=== PATIENT | male | born 1955 | race African-American/Black ===

== ENCOUNTER 2016-05-21 21:09 | Inpatient (IN) | payer MEDICARE, OTHER ==
--- NOTE | 2016-05-21 22:21 | ED ---
Extremity Problem HPI - General Chief complaint: Extremity Problem,Nontraumatic Stated complaint: swollen feet Time Seen by Provider: 05/21/16 21:49 Source: patient Mode of arrival: ambulatory Limitations: no limitations - History of Present Illness Initial comments: This patient is a 61-year-old man who presents to be evaluated for bilateral leg swelling and some mild discomfort. He states that he initially noted at about 3 weeks ago, and it was first present on the left side. The patient states that it has gradually progressed and now he has noted symptoms both sides. The patient has history of previous kidney failure due to hypertension, and is status post a transplant. He does not know his baseline creatinine and states that he "hasn't been sticking to the kidney diet" for a long time. Patient is denying any chest or abdominal symptoms. He has not noted fevers or chills. Denies any wounds to the lower extremities. MD Complaint: extremity pain, extremity swelling Onset/Timin -: week(s) Location: bilateral lower extremity History of Same: Yes Severity scale (1-10): 1 Quality: dull Consistency: constant Improves with: nothing Worsens with: nothing Associated Symptoms: denies other symptoms - Related Data Home Medications Medication Instructions Recorded Confirmed Ergocalciferol [Vitamin D2 50,000 unit PO JOHNSON 03/26/14 05/21/16 (DRISDOL)] Lisinopril [Prinivil] 10 mg PO DAILY 03/26/14 05/21/16 Magnesium Oxide [Mag-Ox] 400 mg PO BID 03/26/14 05/21/16 Mycophenolate Mofetil [Cellcept] 750 mg PO QAM 03/26/14 05/21/16 Tacrolimus [Prograf] 3 mg PO BID 03/26/14 05/21/16 glipiZIDE [Glucotrol XL] 10 mg PO DAILY 03/26/14 05/21/16 Mycophenolate Mofetil [Cellcept] 500 mg PO HS 11/27/15 05/21/16 Omeprazole 20 mg PO DAILY 11/27/15 05/21/16 Aspirin 325 mg PO DAILY PRN 05/21/16 05/21/16 Latanoprost [Xalatan 0.005%] 1 drop BOTH EYES HS 05/21/16 05/21/16 Allergies Allergy/AdvReac Type Severity Reaction Status Date / Time No Known Allergies Allergy Verified 05/22/16 03:38 Review of Systems ROS Statement: Those systems with pertinent positive or pertinent negative responses have been documented in the HPI. ROS Other: All systems not noted in ROS Statement are negative. Constitutional: Denies: fever, chills, weakness Respiratory: Denies: cough, dyspnea, hemoptysis Cardiovascular: Reports: edema. Denies: chest pain, palpitations, dyspnea on exertion, orthopnea, syncope Gastrointestinal: Denies: abdominal pain, vomiting, diarrhea, melena, hematochezia Genitourinary: Denies: dysuria, frequency, hematuria, testicular pain Musculoskeletal: Denies: back pain Skin: Denies: rash Neurological: Denies: headache, weakness, numbness Past Medical History Past Medical History: Chest Pain / Angina, COPD, Diabetes Mellitus, Hyperlipidemia, Hypertension Additional Past Medical History / Comment(s): Hepatitis C History of Any Multi-Drug Resistant Organisms: None Reported Additional Past Surgical History / Comment(s): Kidney transplant Past Psychological History: No Psychological Hx Reported Smoking Status: Current every day smoker Past Alcohol Use History: None Reported Past Drug Use History: None Reported General Exam Limitations: no limitations General appearance: alert, in no apparent distress Head exam: Present: atraumatic, normocephalic Eye exam: Present: normal appearance ENT exam: Present: normal oropharynx Respiratory exam: Present: normal lung sounds bilaterally. Absent: respiratory distress, wheezes, rales, rhonchi, stridor Cardiovascular Exam: Present: regular rate, normal rhythm, normal heart sounds. Absent: systolic murmur, diastolic murmur, rubs, gallop GI/Abdominal exam: Present: soft. Absent: distended, tenderness, guarding, rebound, mass, pulsatile mass, hernia Extremities exam: Present: normal inspection, normal capillary refill, other ( There is bilateral lower extremity edema, greater on the left and right. There is a trace of erythema to the medial aspect of the left foot however there is no warmth. No tenderness. Neurovascular exam intact to the bilateral lower extremities). Absent: calf tenderness Back exam: Present: normal inspection. Absent: CVA tenderness (R), CVA tenderness (L) Neurological exam: Present: alert. Absent: motor sensory deficit Skin exam: Present: warm, dry, intact, erythema (See above). Absent: rash Course Vital Signs 05/21/16 05/21/16 05/21/16 21:21 21:25 22:17 Temperature 98.0 F Pulse Rate 90 90 80 Pulse Rate [ Pulse Oximetery ] Pulse Rate [ Right Supine] Respiratory 18 18 20 Rate Blood Pressure 229/118 196/118 200/128 Blood Pressure [Right Arm Supine] O2 Sat by Pulse 99 99 97 Oximetry 05/21/16 05/21/16 05/22/16 22:33 23:18 00:00 Temperature 98.3 F Pulse Rate 78 75 69 Pulse Rate [ Pulse Oximetery ] Pulse Rate [ Right Supine] Respiratory 18 20 18 Rate Blood Pressure 193/119 196/123 186/115 Blood Pressure [Right Arm Supine] O2 Sat by Pulse 95 95 94 L Oximetry 05/22/16 05/22/16 05/22/16 00:41 01:09 02:01 Temperature 98.1 F Pulse Rate 72 69 73 Pulse Rate [ Pulse Oximetery ] Pulse Rate [ Right Supine] Respiratory 18 18 18 Rate Blood Pressure 176/107 182/109 171/108 Blood Pressure [Right Arm Supine] O2 Sat by Pulse 95 94 L 96 Oximetry 05/22/16 05/22/16 05/22/16 02:30 02:50 03:44 Temperature Pulse Rate 67 63 Pulse Rate [ Pulse Oximetery ] Pulse Rate [ Right Supine] Respiratory 18 18 18 Rate Blood Pressure 171/104 167/105 Blood Pressure [Right Arm Supine] O2 Sat by Pulse 98 97 Oximetry 05/22/16 05/22/16 04:23 07:00 Temperature 97.2 F L 97.4 F L Pulse Rate Pulse Rate [ 74 Pulse Oximetery ] Pulse Rate [ 65 Right Supine] Respiratory 18 20 Rate Blood Pressure Blood Pressure 146/92 172/114 [Right Arm Supine] O2 Sat by Pulse 96 95 Oximetry Medical Decision Making - Medical Decision Making This patient is 61-year-old man status post renal transplant, who presents with bilateral leg edema. He is found to have an elevation of his creatinine over baseline. Case discussed with admitting physician and will have nephrology consultation regarding the changes creatinine level - Lab Data Result diagrams: 05/21/16 22:15 05/21/16 22:15 Lab Results 05/21/16 05/21/16 05/21/16 Range/Units 22:15 22:15 22:15 WBC (3.8-10.6) k/uL RBC (4.30-5.90) m/uL Hgb (13.0-17.5) gm/dL Hct (39.0-53.0) % MCV (80.0-100.0) fL MCH (25.0-35.0) pg MCHC (31.0-37.0) g/dL RDW (11.5-15.5) % Plt Count (150-450) k/uL Neutrophils % % Lymphocytes % % Monocytes % % Eosinophils % % Basophils % % Neutrophils # (1.3-7.7) k/uL Lymphocytes # (1.0-4.8) k/uL Monocytes # (0-1.0) k/uL Eosinophils # (0-0.7) k/uL Basophils # (0-0.2) k/uL D-Dimer 0.45 (<0.60) mg/L FEU Sodium 145 (137-145) mmol/L Potassium 4.2 (3.5-5.1) mmol/L Chloride 113 H (98-107) mmol/L Carbon Dioxide 24 (22-30) mmol/L Anion Gap 8 mmol/L BUN 38 H (9-20) mg/dL Creatinine 1.90 H (0.66-1.25) mg/dL Est GFR (MDRD) Af Amer 44 (>60 ml/min/1.73 sqM) Est GFR (MDRD) Non-Af 36 (>60 ml/min/1.73 sqM) Glucose 99 (74-99) mg/dL POC Glucose (mg/dL) (75-99) mg/dL POC Glu Subsystems Engineer ID Calcium 9.4 (8.4-10.2) mg/dL Magnesium 1.6 (1.6-2.3) mg/dL Total Bilirubin 0.4 (0.2-1.3) mg/dL AST 44 (17-59) U/L ALT 41 (21-72) U/L Alkaline Phosphatase 76 (38-126) U/L Troponin I 0.038 H* (0.000-0.034) ng/mL Total Protein 6.6 (6.3-8.2) g/dL Albumin 3.1 L (3.5-5.0) g/dL 05/21/16 05/22/16 Range/Units 22:15 07:21 WBC 6.2 (3.8-10.6) k/uL RBC 5.45 (4.30-5.90) m/uL Hgb 16.4 (13.0-17.5) gm/dL Hct 50.1 (39.0-53.0) % MCV 92.1 (80.0-100.0) fL MCH 30.1 (25.0-35.0) pg MCHC 32.7 (31.0-37.0) g/dL RDW 13.3 (11.5-15.5) % Plt Count 148 L (150-450) k/uL Neutrophils % 44 % Lymphocytes % 42 % Monocytes % 6 % Eosinophils % 3 % Basophils % 1 % Neutrophils # 2.7 (1.3-7.7) k/uL Lymphocytes # 2.6 (1.0-4.8) k/uL Monocytes # 0.4 (0-1.0) k/uL Eosinophils # 0.2 (0-0.7) k/uL Basophils # 0.0 (0-0.2) k/uL D-Dimer (<0.60) mg/L FEU Sodium (137-145) mmol/L Potassium (3.5-5.1) mmol/L Chloride (98-107) mmol/L Carbon Dioxide (22-30) mmol/L Anion Gap mmol/L BUN (9-20) mg/dL Creatinine (0.66-1.25) mg/dL Est GFR (MDRD) Af Amer (>60 ml/min/1.73 sqM) Est GFR (MDRD) Non-Af (>60 ml/min/1.73 sqM) Glucose (74-99) mg/dL POC Glucose (mg/dL) 117 H (75-99) mg/dL POC Glu Subsystems Engineer ID Eduar, [place] Calcium (8.4-10.2) mg/dL Magnesium (1.6-2.3) mg/dL Total Bilirubin (0.2-1.3) mg/dL AST (17-59) U/L ALT (21-72) U/L Alkaline Phosphatase (38-126) U/L Troponin I (0.000-0.034) ng/mL Total Protein (6.3-8.2) g/dL Albumin (3.5-5.0) g/dL - EKG Data -: EKG Interpreted by [place] EKG shows normal: sinus rhythm, axis (Left axis deviation) Rate: normal (Rate 82 bpm) When compared to previous EKG there are: other (The lateral T inversions present on previous EKG) Interpretation: LVH, other (T inversion in lead 1, aVL, V6. ) Disposition Clinical Impression: Hypertension, Leg edema, Acute on chronic renal failure Disposition: ADMITTED IP TO THIS [facility] Condition: Poor Referrals: Trav Velasquez MD [Primary Care Provider] - 1-2 days
[2016-05-21] MEDS ORDERED: cloNIDine HCL 0.2 MG TAB PO STA (22:22)
[2016-05-21 22:50] LABS: Calcium 9.4 mg/dL (8.4-10.2); Magnesium 1.6 mg/dL (1.6-2.3); Potassium 4.2 mmol/L (3.5-5.1); Total Bilirubin 0.4 mg/dL (0.2-1.3); Total Protein 6.6 g/dL (6.3-8.2)
--- NOTE | 2016-05-21 22:57 | XR ---
EXAM: XR Chest, 1 View. CLINICAL HISTORY: Reason: cough TECHNIQUE: Frontal view of the chest. COMPARISON: No relevant prior studies available. FINDINGS: Rounded lucency in the left lower lung presumably reflects a bulla. Cannot exclude consolidation of adjacent retrocardiac left lower lobe. Cardiomediastinal contour is within normal limits. No overt pulmonary edema. No pneumothorax. No displaced fracture. IMPRESSION: Rounded lucency in the left lower lung presumably reflects a bulla. Cannot exclude consolidation of adjacent retrocardiac left lower lobe.
--- NOTE | 2016-05-21 23:28 | US ---
EXAM: US Duplex Bilateral Lower Extremity Veins. CLINICAL HISTORY: Reason: Pain TECHNIQUE: Real-time ultrasound scan of the veins of the bilateral lower extremities with color Doppler flow, spectral waveform analysis and compression. COMPARISON: No relevant prior studies available. FINDINGS: Deep veins: Unremarkable. No DVT in the common femoral, femoral or popliteal veins. Superficial veins: Unremarkable. No thrombus in the visualized greater saphenous veins. Soft tissues: No acute findings. No popliteal cyst. IMPRESSION: No deep venous thrombosis in the bilateral lower extremities.
[2016-05-22] MEDS ORDERED: NALOXONE 0.4 MG/ML 1 ML VIAL IV PRN (00:59)
[2016-05-22] MEDS: SODIUM CHLORIDE 0.9% 1,000 ML IV SCH (01:11)
[2016-05-22 01:26] LABS: Basophils % (A) 1 %; CH 30.3; Eosinophils # (A) 0.2 k/uL (0-0.7); Eosinophils % (A) 3 %; HCT 50.1 % (39.0-53.0); HDW 2.45; HGB 16.4 gm/dL (13.0-17.5); Luc # (Auto) 0.24; Luc % (Auto) 4; Lymphocytes # (A) 2.6 k/uL (1.0-4.8); Lymphocytes % (A) 42 %; MCH 30.1 pg (25.0-35.0); MCHC 32.7 g/dL (31.0-37.0); MCV 92.1 fL (80.0-100.0); Mean Platelet Volume 10.3; Monocytes # (A) 0.4 k/uL (0-1.0); Monocytes % (A) 6 %; Neutrophils # (A) 2.7 k/uL (1.3-7.7); Neutrophils % (A) 44 %; RBC 5.45 m/uL (4.30-5.90); RDW 13.3 % (11.5-15.5); WBC 6.2 k/uL (3.8-10.6); WBC (Perox) 6.13
[2016-05-22] MEDS ORDERED: LISINOPRIL 10 MG TAB PO STA (02:14)
[2016-05-22 03:33] VITALS: BMI 23.7
[2016-05-22 07:29] LABS: Glucose,Whole Blood 117 mg/dL (75-99)
[2016-05-22] MEDS: HEPARIN SODIUM,PORCINE 5,000 UNIT/ML 1 ML VIAL SQ SCH ×2 (08:03→16:01)
[2016-05-22] MEDS: glipiZIDE 5 MG TAB PO SCH ×2 (08:04→17:37)
[2016-05-22] MEDS: MYCOPHENOLATE MOFETIL 250 MG CAP PO SCH ×2 (08:04→20:49)
[2016-05-22] MEDS: TACROLIMUS 1 MG CAP PO SCH ×2 (08:04→20:49)
[2016-05-22] MEDS: MAGNESIUM OXIDE 400 MG TAB PO SCH ×2 (08:04→20:48)
[2016-05-22] MEDS: PANTOPRAZOLE 40 MG TABLET PO SCH (08:05)
[2016-05-22] MEDS: LISINOPRIL 10 MG TAB PO SCH (08:05)
--- NOTE | 2016-05-22 09:57 | P.NPCON ---
History of Present Illness - Reason for Consult acute renal failure - History of Present Illness reason for consultation: Kidney transplant management and acute kidney injury. History of present illness: Patient is a 61-year-old male seen in renal consultation for acute kidney injury and renal transplant management. Patient received a donor renal allograft in [address] [facility]. Etiology of his renal disease was nephrosclerosis. His baseline creatinine from October 2015 is near 1 but has been gradually increasing. It was 1.6 in November 2015 and then 1.4 in February 2016. It is elevated at 1.9 this admission. Patient presented to the hospital with lower extremity edema that he has noticed for the last 1 month. His blood pressure have also been running on the higher side.when he presented to the hospital his blood pressure was 229/118.he admits to being compliant with his medications.he is currently maintained on lisinopril 10 mg once daily and also received a dose of clonidine 0.2 mg.his most recent blood pressure is 172/114. He denies any chest pain or shortness of breath. No vomiting or diarrhea. Appetite has been good. Admits to good urine output. No hematuria or dysuria. He does have history of hepatitis C which has not been treated according to the patient. This was diagnosed prior to his kidney transplant in the . He also has diabetes mellitus which his tacrolimus induced. States he was diagnosed with diabetes about 10 years ago. Denies use of NSAIDs. No other complaints at this time. Vital signs are stable. General: The patient appeared well nourished and normally developed. HEENT: Head exam is unremarkable. Neck is without jugular venous distension. LUNGS: Lungs are clear to auscultation and percussion. Breath sounds decreased. HEART: Rate and Rhythm are regular. First and second heart sounds normal. No murmurs, rubs or gallops. ABDOMEN: Abdominal exam reveals normal bowel sounds. Non-tender and non- distended. No evidence of peritonitis. EXTREMITITES: 1+ edema. Past Medical History Past Medical History: Chest Pain / Angina, COPD, Diabetes Mellitus, Hyperlipidemia, Hypertension Additional Past Medical History / Comment(s): Hepatitis C History of Any Multi-Drug Resistant Organisms: None Reported Additional Past Surgical History / Comment(s): Kidney transplant Past Anesthesia/Blood Transfusion Reactions: No Reported Reaction Past Psychological History: No Psychological Hx Reported Smoking Status: Current every day smoker Past Alcohol Use History: None Reported Past Drug Use History: None Reported Additional Drug Use History / Comment(s): smokes less than a pack of cigs a day Medications and Allergies Home Medications Medication Instructions Recorded Confirmed Type Ergocalciferol [Vitamin D2 50,000 unit PO JOHNSON 03/26/14 05/21/16 History (DRISDOL)] Lisinopril [Prinivil] 10 mg PO DAILY 03/26/14 05/21/16 History Magnesium Oxide [Mag-Ox] 400 mg PO BID 03/26/14 05/21/16 History Mycophenolate Mofetil [Cellcept] 750 mg PO QAM 03/26/14 05/21/16 History Tacrolimus [Prograf] 3 mg PO BID 03/26/14 05/21/16 History glipiZIDE [Glucotrol XL] 10 mg PO DAILY 03/26/14 05/21/16 History Mycophenolate Mofetil [Cellcept] 500 mg PO HS 11/27/15 05/21/16 History Omeprazole 20 mg PO DAILY 11/27/15 05/21/16 History Aspirin 325 mg PO DAILY PRN 05/21/16 05/21/16 History Latanoprost [Xalatan 0.005%] 1 drop BOTH EYES HS 05/21/16 05/21/16 History Allergies Allergy/AdvReac Type Severity Reaction Status Date / Time No Known Allergies Allergy Verified 05/22/16 03:38 Physical Exam Vitals: Vital Signs Temp Pulse Pulse Pulse Resp BP BP 05/22/16 07:00 97.4 F L 74 20 172/114 05/22/16 04:23 97.2 F L 65 18 146/92 05/22/16 03:44 18 05/22/16 02:50 63 18 167/105 05/22/16 02:30 67 18 171/104 05/22/16 02:01 73 18 171/108 05/22/16 01:09 98.1 F 69 18 182/109 Pulse Ox 05/22/16 07:00 95 05/22/16 04:23 96 05/22/16 03:44 05/22/16 02:50 97 05/22/16 02:30 98 05/22/16 02:01 96 05/22/16 01:09 94 L Intake and Output 05/21/16 05/22/16 05/22/16 22:59 06:59 14:59 Intake Total 240 Balance 240 Intake: Oral 240 Other: Voiding Method Toilet # Voids 1 Weight 80 kg Results - Lab Results Most recent lab results Calcium 9.4 mg/dL (8.4-10.2) 05/21/16 22:15 Magnesium 1.6 mg/dL (1.6-2.3) 05/21/16 22:15 05/21/16 22:15 05/21/16 22:15 Assessment and Plan Plan: Assessment: #1. Nonoliguric acute kidney injury secondary to ischemic ATN secondary to hemodynamic instability. Rule out obstructive process and GN. Creatinine 1.9 today. Creatinine was 1 in May 2015 and up to 1.6 in November 2015 and more recently 1.4 in February 2016. #2. donor renal allograft from 2006 secondary to nephrosclerosis from [facility]. #3. Hypertension with chronic kidney disease. Uncontrolled. #4. History of hepatitis C. #5. Lower extremity edema related to uncontrolled hypertension as well as hypoalbuminemia. Rule out nephrotic syndrome. Plan: Check urinalysis. Check renal ultrasound. Quantify proteinuria. Check trough Prograf level. Add hydralazine 50 mg 3 times daily. Maintain Prograf and CellCept for immunosuppression medications. Repeat electrolytes in the morning. Pending above studies, may need a transplant biopsy for which he will need to be stress transferred to [facility]. Thank you for the consultation. I will continue to follow the patient with you during his hospital stay.
[2016-05-22] MEDS: hydrALAZINE HCL 50 MG TAB PO SCH ×3 (10:59→22:26)
[2016-05-22 11:38] LABS: Appearance,Urine Clear (Clear); Bilirubin,Urine Negative (Negative); Glucose,Urine (UA) Trace (Negative); Ketones,Urine Negative (Negative); Leukocyte Esterase,Urine Negative (Negative); Mucus,Urine Rare /hpf; Nitrite,Urine Negative (Negative); PH, Urine 6.5 (5.0-8.0); Particle Count 995; Protein,Urine 3+ (Negative); RBC,Urine <1 /hpf (0-5); Specific Gravity,Urine 1.013 (1.001-1.035); UA Billing (MACRO vs. MICRO) MICRO; Urobilinogen,Urine <2.0 mg/dL (<2.0); WBC,Urine 1 /hpf (0-5)
[2016-05-22 12:05] LABS: Glucose,Whole Blood 79 mg/dL (75-99)
--- NOTE | 2016-05-22 15:31 | US ---
EXAMINATION TYPE: US renal transplant w dop DATE OF EXAM: 05/22/2016 2:30 PM COMPARISON: Previous study dated 05/02/2015. CLINICAL HISTORY: tamara. EXAM PERFORMED: [facility]cale on [place] kidneys and Doppler duplex and Grayscale imaging of the transplan nati kidney. EXAM MEASUREMENTS: [place] Right Kidney: 6.1 x 2.7 x 2.3cm [place] Left Kidney: 6.0 x 3.1 x 2.9cm Transplant Kidney: 12.6 x 5.3 x 5.7 Location of transplanted kidney: RLQ ANATOMY: [place] Right Kidney: atrophied, hyperechoic [place] Left Kidney: atrophied, hyperechoic, small cyst measuring 0.5 x 0.5 x 0.6cm Transplant Kidney: cystic area inferior measuring 0.8 x 0.7 x 0.8cm . arterial and venous flow visua lized Bladder: appears wnl IMPRESSION: 1. STABLE CYSTIC LESION WITHIN THE TRANSPLANT KIDNEY. 2. ATROPHIC [place] KIDNEYS. 3. STABLE CYSTIC LESION IN THE [place] LEFT KIDNEY.
[2016-05-22 17:11] LABS: Glucose,Whole Blood 129 mg/dL (75-99)
[2016-05-22] MEDS: NICOTINE 7MG/24HR PATCH TRANSDERM SCH (17:37)
[2016-05-22] MEDS: ACETAMINOPHEN TAB 325 MG TAB PO PRN (17:40)
[2016-05-22] MEDS: LATANOPROST 0.005% OPHTH DROPS 2.5 ML BTL BOTH EYES SCH (20:48)
[2016-05-22 21:15] LABS: Glucose,Whole Blood 132 mg/dL (75-99)
--- NOTE | 2016-05-22 21:18 | HP ---
DATE OF ADMISSION: 05/22/2016 PRESENTING COMPLAINT: Lower extremity swelling. HISTORY OF PRESENTING COMPLAINT: This is a pleasant 61-year-old patient of Dr. Velasquez whose chronic stable medical conditions include COPD, diabetes, hyperlipidemia, hypertension, hepatitis C. Patient had a kidney transplant about 10 years ago at [facility]. Patient is followed by Dr. Morelos ( ) the last appointment was about 3 months ago. For about a month patient was noting increasing swelling of lower extremity. Denies any shortness of breath. No fever. No nausea or vomiting. No orthopnea. No PND. No chest pain. Because of swelling, he decided to come in today. Patient's creatinine from February of this year was 1.43 and creatinine has increased currently to 1.90. Patient denies any cardiac symptoms at all. REVIEW OF SYSTEMS: CONSTITUTIONAL: None. HEENT: None. RESPIRATORY: Occasionally short of breath. CARDIOVASCULAR: None. GASTROINTESTINAL: None. GENITOURINARY: None. MUSCULOSKELETAL: None. DERMATOLOGICAL: None. HEMATOLOGICAL: None. LYMPHATICS: None. PSYCHIATRY: None. NEUROLOGICAL: None. PAST HISTORY: 1. COPD. 2. Diabetes. 3. Hyperlipidemia. 4. Hypertension. 5. Hepatitis C. 6. Kidney transplant. PAST SURGICAL HISTORY: Kidney transplant. SOCIAL HISTORY: Smoking 3 or 4 cigarettes a day. Lives by himself. Denies use of recreational drugs or alcohol. FAMILY HISTORY: Reviewed; noncontributory to presentation. HOME MEDICATIONS: 1. Glucotrol XL 10 mg p.o. daily. 2. Prograf 3 mg p.o. b.i.d. 3. Omeprazole 20 mg p.o. daily. 4. CellCept 500 mg at night, 750 mg in the morning. 5. Magnesium oxide 400 mg p.o. b.i.d. 6. Prinivil 10 mg p.o. daily. 7. Xalatan 0.005% one drop to both eyes at bedtime. 8. Vitamin D2 50,000 units p.o. Wednesday. 9. Aspirin 325 p.o. daily p.r.n. ALLERGIES: NONE. PHYSICAL EXAMINATION: VITAL SIGNS ON PRESENTATION: Temperature 98, pulse 90, respiration 18, blood pressure 229/118. Pulse ox 99% on room air. Blood pressure now is 161/97. GENERAL APPEARANCE: Average build. Lying in bed. Somewhat tired-appearing. EYES: Pupils equal. Conjunctivae normal. HEENT: Oral conjunctivae normal. NECK: JVD not raised. Mass not palpable. RESPIRATORY: Effort normal. Lungs are clear. CARDIOVASCULAR: First and second sounds normal. Edema present. ABDOMEN: Soft, nontender. Liver and spleen not palpable. LYMPHATIC: No lymph node palpable in neck or axillae. PSYCHIATRY: Alert and oriented x3. Mood and affect normal. NEUROLOGICAL: Pupils equal. Cranial nerves grossly intact. Power and sensation grossly intact. INVESTIGATIONS: White count 6.2, hemoglobin 16.4. Potassium 4.2. BUN 38, creatinine 1.90. Patient's creatinine was 1.43 back in February of this year. Troponin 0.038. Albumin 3.1. UA shows protein 3+, trace glucose. Renal ultrasound shows stable cystic lesion within the transplant kidney, atrophic [place] kidney, stable cystic lesion in the [place] left kidney. Venous Doppler ultrasound: ( ) lower extremity. Chest x-ray: no fluid overload. ASSESSMENT: 1. Non-oliguric acute kidney injury secondary to ischemic acute tubular necrosis, possibly secondary to hemodynamic instability or hypertensive heart disease. Creatinine was 1.4 in February of this year. 2. Essential hypertension with chronic kidney disease, uncontrolled on presentation. 3. Hepatitis C. 4. Lower extremity edema; could be related to hypoalbuminemia. Nephrotic syndrome needs to be entertained. 5. Chronic obstructive pulmonary disease in a current smoker. 6. Chronic nicotine dependence. Patient is a cigarette smoker. 7. Hyperlipidemia. PLAN: Nephrology was consulted. Hydralazine 50 mg 3 times a day was added. Care was discussed with the patient. Home medications will be resumed. Will also give patient a nicotine patch.
[2016-05-23] MEDS: HEPARIN SODIUM,PORCINE 5,000 UNIT/ML 1 ML VIAL SQ SCH ×3 (01:38→17:46)
[2016-05-23] MEDS: SODIUM CHLORIDE 0.9% 1,000 ML IV SCH (01:51)
[2016-05-23 07:33] LABS: Glucose,Whole Blood 110 mg/dL (75-99)
[2016-05-23] MEDS: TACROLIMUS 1 MG CAP PO SCH ×2 (08:30→21:12)
[2016-05-23] MEDS: PANTOPRAZOLE 40 MG TABLET PO SCH (08:31)
[2016-05-23] MEDS: MYCOPHENOLATE MOFETIL 250 MG CAP PO SCH ×2 (08:31→21:12)
[2016-05-23] MEDS: ACETAMINOPHEN TAB 325 MG TAB PO PRN (08:31)
[2016-05-23] MEDS: MAGNESIUM OXIDE 400 MG TAB PO SCH ×2 (08:31→21:11)
[2016-05-23] MEDS: LISINOPRIL 10 MG TAB PO SCH (08:31)
[2016-05-23] MEDS: hydrALAZINE HCL 50 MG TAB PO SCH (08:31)
[2016-05-23] MEDS: glipiZIDE 5 MG TAB PO SCH ×2 (08:32→17:49)
[2016-05-23] MEDS: NICOTINE 7MG/24HR PATCH TRANSDERM SCH (08:32)
[2016-05-23 08:49] LABS: Calcium 9.5 mg/dL (8.4-10.2)
[2016-05-23 08:53] LABS: Potassium 4.2 mmol/L (3.5-5.1)
[2016-05-23] MEDS ORDERED: hydrALAZINE HCL 25 MG TAB PO ONE (10:00)
[2016-05-23] MEDS ORDERED: hydrALAZINE HCL 25 MG TAB PO SCH (10:00)
[2016-05-23] MEDS ORDERED: FUROSEMIDE 10 MG/ML 4 ML VIAL IV STA (10:31)
--- NOTE | 2016-05-23 10:31 | P.PN ---
Subjective Patient is seen in follow-up for acute kidney injury in renal transplant management. Patient has history of donor allograft from 2007 from [facility]. 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 He presented to the hospital with edema in his legs. His blood pressure was greater than 200 systolic on admission. He states he's been compliant with his medications. No vomiting or diarrhea. Appetite is good. Creatinine was 1.9 on admission yesterday and is down to 1.7 today. Blood pressures are somewhat better controlled. Vital signs are stable. General: The patient appeared well nourished and normally developed. HEENT: Head exam is unremarkable. Neck is without jugular venous distension. LUNGS: Lungs are clear to auscultation and percussion. Breath sounds decreased. HEART: Rate and Rhythm are regular. First and second heart sounds normal. No murmurs, rubs or gallops. ABDOMEN: Abdominal exam reveals normal bowel sounds. Non-tender and non- distended. No evidence of peritonitis. EXTREMITITES: 1+ edema. Objective - Vital Signs Vital signs: Vital Signs Temp 98.2 F 05/23/16 07:00 Pulse 57 L 05/23/16 07:00 Resp 22 05/23/16 07:00 BP 170/103 05/23/16 07:00 Pulse Ox 97 05/23/16 07:00 Intake & Output 05/22/16 05/23/16 05/23/16 18:59 06:59 18:59 Intake Total 900 Output Total 100 Balance 800 Intake: Intake, IV Titration 120 Amount Sodium Chloride 0.9% 1, 120 000 ml @ 20 mls/hr IV . Q24H [facility] Rx#:[id number] Oral 780 Output: Urine 100 Other: Voiding Method Toilet # Voids 2 2 - Labs CBC & Chem 7: 05/21/16 22:15 05/23/16 08:13 Labs: Abnormal Lab Results - Last 24 Hours (Table) 05/22/16 05/22/16 05/22/16 Range/Units 11:20 17:10 21:10 Chloride (98-107) mmol/L BUN (9-20) mg/dL Creatinine (0.66-1.25) mg/dL Glucose (74-99) mg/dL POC Glucose (mg/dL) 129 H 132 H (75-99) mg/dL Urine Protein 3+ H (Negative) Urine Glucose (UA) Trace H (Negative) Urine Mucus Rare H (None) /hpf 05/23/16 05/23/16 Range/Units 07:16 08:13 Chloride 114 H (98-107) mmol/L BUN 31 H (9-20) mg/dL Creatinine 1.70 H (0.66-1.25) mg/dL Glucose 121 H (74-99) mg/dL POC Glucose (mg/dL) 110 H (75-99) mg/dL Urine Protein (Negative) Urine Glucose (UA) (Negative) Urine Mucus (None) /hpf Microbiology - Last 24 Hours (Table) 05/22/16 11:20 Urine Culture - Preliminary Urine,Clean Catch Assessment and Plan Plan: Assessment: #1. Nonoliguric acute kidney injury secondary to ischemic ATN secondary to hemodynamic instability. No evidence of hydronephrosis. Creatinine 1.9 on admission and is down to 1.7 today.. Creatinine was 1 in May 2015 and up to 1.6 in November 2015 and more recently 1.4 in February 2016. #2. 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 #3. Hypertension with chronic kidney disease. Uncontrolled. #4. History of hepatitis C. #5. Lower extremity edema related to uncontrolled hypertension as well as hypoalbuminemia. Rule out nephrotic syndrome. #6. Proteinuria. Patient has had proteinuria for quite some time now which is related to his underlying hepatitis C. There may be a component of diabetic kidney disease as well. Depending on his renal function, he may need a transplant biopsy down the road. Plan: Quantify proteinuria. Check trough Prograf level. Increase hydralazine to 75 mg 3 times daily. Lasix 40 mg IV once today. Maintain Prograf and CellCept for immunosuppression medications. Repeat electrolytes in the morning.
[2016-05-23 11:34] LABS: Glucose,Whole Blood 123 mg/dL (75-99)
[2016-05-23] MEDS ORDERED: cloNIDine HCL 0.1 MG TAB PO PRN (15:36)
[2016-05-23] MEDS ORDERED: hydrALAZINE HCL 20 MG/ML 1 ML VIAL IVP PRN (15:36)
[2016-05-23] MEDS ORDERED: TEMAZEPAM 15 MG CAP PO PRN (15:37)
[2016-05-23] MEDS ORDERED: ALPRAZolam 0.25 MG TAB PO PRN (15:37)
[2016-05-23] MEDS ORDERED: ASPIRIN 325 MG TAB PO PRN (15:37)
[2016-05-23 17:17] LABS: Glucose,Whole Blood 94 mg/dL (75-99)
--- NOTE | 2016-05-23 17:32 | PN ---
DATE OF SERVICE: 05/23/2016 This 61-year-old gentleman who was admitted with non-oliguric acute kidney injury has been closely followed at this time. Nephrology is following the patient closely. No chest or palpitation. No fever. REVIEW OF SYSTEMS: CARDIOVASCULAR SYSTEM: No angina. RESPIRATORY; As mentioned earlier. GI: As mentioned earlier. : As mentioned earlier. NERVOUS SYSTEM: No numbness or weakness. Current medications are reviewed again. 1. Tylenol 650 q.6 p.r.n. 2. Vitamin D2, 50,000 units. 3. Glucotrol 5 mg b.i.d. 4. Hydralazine 75 t.i.d. 5. Zestril 10 mg p.o. daily. 6. Magnesium oxide. 7. CellCept. 8. Narcan. 9. Protonix. 10. Prograf. On exam, alert and oriented x3. Pulse is 63, blood pressure 183/115, respirations 22, temperature 97.2, pulse ox 91% on room air. HEENT: Conjunctivae normal. Oral mucosa moist. NECK: No jugular venous distention. No carotid bruit. No lymph node enlargement. CARDIOVASCULAR: S1 and S2, muffled. No S3, no S4. RESPIRATORY: Breath sounds diminished at the bases. A few scattered rhonchi, no crackles. ABDOMEN: Soft, nontender. No mass palpable. LEGS: No edema, no swelling. NERVOUS SYSTEM: Higher function as mentioned, moves all 4 limbs. No focal deficits LYMPHATICS: No lymphadenopathy of neck, axillae or groin. SKIN: No ulcers, rashes or bleeding. LABS: WBC 6.2. Sodium 143, potassium 4.2, chloride 114. Creatinine is 1.7, BUN is 31. ASSESSMENT: 1. Accelerated hypertension with hypertensive urgency. 2. Non-oliguric acute kidney injury secondary to acute tubular necrosis, possibly secondary to hemodynamic instability, hypertensive kidney disease. 3. Essential hypertension. 4. Hepatitic C history. 5. Lower extremity edema bilaterally. 6. Chronic obstructive pulmonary disease. 7. History of nicotine dependence. 8. Hyperlipidemia. 9. Mild thrombocytopenia. 10. Hyperchloremia. 11. Troponin indeterminate at 0.038. RECOMMENDATIONS AND DISCUSSION: This 61-year-old gentleman who presented with multiple complex medical issues, will monitor the patient closely. Continue the current medications. Continue symptomatic treatment. I recommend add Norvasc to the current regimen. Otherwise, continue with the rest of the medications, p.r.n. medications and closely follow with Nephrology. Monitor blood sugars closely. Guarded prognosis because of multiple complex medical issues. See orders for further details. Repeat labs will be ordered. Prognosis guarded. Discussed with the patient, understands and agrees.
[2016-05-23] MEDS: INSULIN LISPRO (humaLOG) 300 UNIT/3 ML VIAL SQ SCH ×2 (17:49→21:34)
[2016-05-23] MEDS: hydrALAZINE HCL 25 MG TAB PO SCH ×2 (17:49→21:11)
[2016-05-23] MEDS: amLODIPine 5 MG TAB PO SCH (17:49)
[2016-05-23 20:10] LABS: Hemoglobin A1C 7.8 % (4.2-6.1)
[2016-05-23] MEDS: LATANOPROST 0.005% OPHTH DROPS 2.5 ML BTL BOTH EYES SCH (21:11)
[2016-05-23 21:32] LABS: Glucose,Whole Blood 133 mg/dL (75-99)
[2016-05-24] MEDS: SODIUM CHLORIDE 0.9% 1,000 ML IV SCH (00:40)
[2016-05-24] MEDS: HEPARIN SODIUM,PORCINE 5,000 UNIT/ML 1 ML VIAL SQ SCH ×2 (00:40→08:40)
[2016-05-24 06:57] LABS: Glucose,Whole Blood 108 mg/dL (75-99)
[2016-05-24 07:37] VITALS: BP 174/99; PULSE 65; RESP 16; TEMP 97.7
[2016-05-24] MEDS: MAGNESIUM OXIDE 400 MG TAB PO SCH (08:39)
[2016-05-24] MEDS: TACROLIMUS 1 MG CAP PO SCH (08:39)
[2016-05-24] MEDS: PANTOPRAZOLE 40 MG TABLET PO SCH (08:39)
[2016-05-24] MEDS: hydrALAZINE HCL 25 MG TAB PO SCH (08:39)
[2016-05-24] MEDS: glipiZIDE 5 MG TAB PO SCH (08:39)
[2016-05-24] MEDS: amLODIPine 5 MG TAB PO SCH (08:39)
[2016-05-24] MEDS: LISINOPRIL 10 MG TAB PO SCH (08:39)
[2016-05-24] MEDS: MYCOPHENOLATE MOFETIL 250 MG CAP PO SCH (08:39)
[2016-05-24] MEDS: NICOTINE 7MG/24HR PATCH TRANSDERM SCH (08:40)
[2016-05-24] MEDS: INSULIN LISPRO (humaLOG) 300 UNIT/3 ML VIAL SQ SCH (08:40)
[2016-05-24] MEDS ORDERED: ERGOCALCIFEROL 50,000 UNIT CAP PO SCH (09:00)
[2016-05-24 09:29] LABS: Basophils % (A) 1 %; CH 30.4; CHCM 32.8; Eosinophils # (A) 0.2 k/uL (0-0.7); Eosinophils % (A) 3 %; HCT 46.2 % (39.0-53.0); HDW 2.43; HGB 15.7 gm/dL (13.0-17.5); Luc # (Auto) 0.12; Luc % (Auto) 3; Lymphocytes # (A) 1.6 k/uL (1.0-4.8); Lymphocytes % (A) 35 %; MCH 31.5 pg (25.0-35.0); MCHC 33.9 g/dL (31.0-37.0); MCV 92.9 fL (80.0-100.0); Mean Platelet Volume 9.6; Monocytes # (A) 0.3 k/uL (0-1.0); Monocytes % (A) 6 %; Neutrophils # (A) 2.4 k/uL (1.3-7.7); Neutrophils % (A) 53 %; RBC 4.97 m/uL (4.30-5.90); RDW 13.4 % (11.5-15.5); WBC 4.5 k/uL (3.8-10.6); WBC (Perox) 4.62
[2016-05-24 09:37] LABS: Calcium 9.3 mg/dL (8.4-10.2); Potassium 4.4 mmol/L (3.5-5.1)
--- NOTE | 2016-05-24 10:52 | P.PN ---
Subjective Patient is seen in follow-up for acute kidney injury in renal transplant management. Patient has history of donor allograft from 2007 from [facility]. 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 He presented to the hospital with edema in his legs. His blood pressure was greater than 200 systolic on admission. He states he's been compliant with his medications. No vomiting or diarrhea. Appetite is good. Creatinine was 1.9 on admission yesterday and was down to 1.7 today. Is 1.83 today. Blood pressures are better controlled. Vital signs are stable. General: The patient appeared well nourished and normally developed. HEENT: Head exam is unremarkable. Neck is without jugular venous distension. LUNGS: Lungs are clear to auscultation and percussion. Breath sounds decreased. HEART: Rate and Rhythm are regular. First and second heart sounds normal. No murmurs, rubs or gallops. ABDOMEN: Abdominal exam reveals normal bowel sounds. Non-tender and non- distended. No evidence of peritonitis. EXTREMITITES: Trace edema. Objective - Vital Signs Vital signs: Vital Signs Temp 97.7 F 05/24/16 07:00 Pulse 65 05/24/16 07:00 Resp 16 05/24/16 07:00 BP 174/99 05/24/16 07:00 Pulse Ox 96 05/24/16 07:00 Intake & Output 05/23/16 05/24/16 05/24/16 18:59 06:59 18:59 Intake Total 160 Balance 160 Intake: Intake, IV Titration 160 Amount Sodium Chloride 0.9% 1, 160 000 ml @ 20 mls/hr IV . Q24H [facility] Rx#:[id number] Other: # Voids 2 1 - Labs CBC & Chem 7: 05/24/16 08:53 05/24/16 08:53 Labs: Abnormal Lab Results - Last 24 Hours (Table) 05/23/16 05/23/16 05/23/16 Range/Units 08:13 11:32 21:00 Plt Count (150-450) k/uL Chloride (98-107) mmol/L BUN (9-20) mg/dL Creatinine (0.66-1.25) mg/dL Glucose (74-99) mg/dL POC Glucose (mg/dL) 123 H 133 H (75-99) mg/dL Hemoglobin A1c 7.8 H (4.2-6.1) % 05/24/16 05/24/16 05/24/16 Range/Units 06:56 08:53 08:53 Plt Count 135 L (150-450) k/uL Chloride 111 H (98-107) mmol/L BUN 36 H (9-20) mg/dL Creatinine 1.83 H (0.66-1.25) mg/dL Glucose 153 H (74-99) mg/dL POC Glucose (mg/dL) 108 H (75-99) mg/dL Hemoglobin A1c (4.2-6.1) % Microbiology - Last 24 Hours (Table) 05/22/16 11:20 Urine Culture - Final Urine,Clean Catch Assessment and Plan Plan: Assessment: #1. Nonoliguric acute kidney injury secondary to ischemic ATN secondary to hemodynamic instability. No evidence of hydronephrosis. Creatinine 1.9 on admission and was down to 1.7 as of yesterday and is 1.8 today. Creatinine was 1 in May 2015 and up to 1.6 in November 2015 and more recently 1.4 in February 2016. Need to rule out rejection. #2. 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 #3. Hypertension with chronic kidney disease. #4. History of hepatitis C. #5. Lower extremity edema related to uncontrolled hypertension as well as hypoalbuminemia. Rule out nephrotic syndrome. #6. Proteinuria. Patient has had proteinuria for quite some time now which is related to his underlying hepatitis C. There may be a component of diabetic kidney disease as well. Plan: Quantify proteinuria. Await trough Prograf level. Continue current antihypertensives. Maintain Prograf and CellCept for immunosuppression medications. Transfer patient to [facility] for biopsy of the transplant kidney to rule out rejection. This was discussed with the patient and he is in agreement. Case was also discussed with the nephrology team at [facility].
[2016-05-24 11:33] LABS: Glucose,Whole Blood 163 mg/dL (75-99)
--- NOTE | 2016-05-24 13:23 | DS ---
DATE OF ADMISSION: 05/22/2016 DATE OF DISCHARGE: DATE OF SERVICE: 05/24/2016 FINAL DIAGNOSES: 1. Hypertension with hypertensive urgency. 2. Nonoliguric acute kidney injury secondary to acute tubular necrosis, possibly secondary to hemodynamic instability, hypertension, kidney disease, rule out transplant rejection. 3. History of disease donor renal allograft in 2006 secondary to hepatitis C and induced glomerular nephritis from [facility]. 4. Essential hypertension. 5. Hepatitis C and treatment history. 6. Lower extremity edema, bilateral. 7. Chronic obstructive pulmonary disease. 8. History of nicotine dependence. 9. Hyperlipidemia. 10. Mild thrombocytopenia. 11. Hyperchloremia. 12. Troponin indeterminate at 0.038. 13. FULL CODE. 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 TOTAL TIME TAKEN: 35 minutes. HISTORY OF PRESENT ILLNESS: This 61-year-old gentleman with a past medical history of multiple medical problems being followed by Dr. Velasquez in the outpatient setting, admitted with accelerated hypertension, bilateral leg edema and nonoliguric acute kidney failure. The creatinine was closely monitored. It was found to be 1.[address] Sosa. Discussed the case with [facility] and the patient will be transferred for evaluation for possibly transplant rejection and possible biopsy, otherwise, On exam, vitals are stable. CARDIOVASCULAR SYSTEM: S1, S2. ABDOMEN: Soft. NERVOUS SYSTEM: No focal deficits. The current medications are as mentioned: 1. Tylenol 650 q.6 p.r.n. 2. Xanax 0.5 t.i.d. 3. Norvasc 5 mg p.o. daily. 4. Aspirin 325 mg daily. 5. Catapres 0.1 mg p.o. q.4 p.r.n. 6. Vitamin D2 fifty thousand p.o. Wednesday. 7. Glucotrol 5 mg a.c. b.i.d. 8. Heparin 5000 subQ q.8. 9. Apresoline 10 mg IV q.4 p.r.n. 10. Apresoline 75 mg p.o. t.i.d. 11. Humalog scale. 12. Xalatan eye drops. 13. Zestril 10 mg daily. 14. Magnesium oxide 400 mg p.o. b.i.d. 15. CellCept 750 mg p.o. q.a.m. 16. CellCept 500 mg p.o. q.h.s. 17. Narcan 0.2 q.2 p.r.n. 18. Habitrol 7 daily. 19. Protonix 40 mg daily. 20. Prograf 3 mg p.o. b.i.d. 21. Restoril 50 mg p.o. q.h.s.
== END 2016-05-24 14:11 | disposition short-term general hospital (02) | DRG 683 ==
LOC: EC 21:09 → 4MS4W 05-22 01:00
PROVIDERS: ADMIT Hospitalist; ATTEND Hospitalist
DX: N17.0 Acute kidney failure with tubular necrosis (principal); E11.22 Type 2 diabetes mellitus with diabetic chronic kidney disease; E87.8 Other disorders of electrolyte and fluid balance, not elsewhere classified; D69.6 Thrombocytopenia, unspecified; I16.0 Hypertensive urgency; E88.09 Other disorders of plasma-protein metabolism, not elsewhere classified; B19.20 Unspecified viral hepatitis C without hepatic coma; E78.5 Hyperlipidemia, unspecified; F17.210 Nicotine dependence, cigarettes, uncomplicated; I12.9 Hypertensive chronic kidney disease with stage 1 through stage 4 chronic kidney disease, or unspecified chronic kidney disease; J44.9 Chronic obstructive pulmonary disease, unspecified; N18.9 Chronic kidney disease, unspecified; R60.0 Localized edema; Z94.0 Kidney transplant status; Z79.82 Long term (current) use of aspirin; Z79.899 Other long term (current) drug therapy
CPT/HCPCS: 36415; 71010; 76776; 80048; 80053; 80197; 81001; 82570; 83036; 83735; 84156; 84484; 85025; 85379; 87086; 93005; 93970; 99285

== ENCOUNTER 2016-06-23 14:21 | Inpatient (IN) | payer MEDICARE, OTHER ==
--- NOTE | 2016-06-23 14:50 | ED ---
General Adult HPI - General Chief complaint: Dizziness Stated complaint: Dizzy Time Seen by Provider: 06/23/16 14:21 Source: patient, RN notes reviewed Mode of arrival: EMS Limitations: no limitations - History of Present Illness Initial comments: This is a 61-year-old male who presents emergency Department complaining of elevated sugar. Patient states he initially hepatitis C and high blood pressure he came in a while ago and they found that he had completely kidney failure she had a kidney transplant since then he had some issues with his kidneys such that he was placed on some steroids and since this been on the steroids his sugars been very high. Patient's noted that he has had a very dry mouth and he has been urinating quite a bit lately. Patient states he's been tapering steroids soft but the symptoms remain. Patient states she went primary medical care office today because it was so high that he wanted him to come the emergency department. Patient denies any recent fever chills or cough. Patient denies any chest pain palpitations difficulty breathing shortest breath per patient denies any abdominal pain patient denies nausea vomiting diarrhea per patient denies headache patient denies numbness weakness. Patient states he is mildly lightheaded and that seems to come and go. - Related Data Home Medications Medication Instructions Recorded Confirmed Lisinopril [Prinivil] 10 mg PO DAILY 03/26/14 06/23/16 Mycophenolate Mofetil [Cellcept] 750 mg PO BID 03/26/14 06/23/16 Tacrolimus [Prograf] 3 mg PO QAM 03/26/14 06/23/16 glipiZIDE [Glucotrol XL] 10 mg PO DAILY 03/26/14 06/23/16 Omeprazole 20 mg PO DAILY 11/27/15 06/23/16 Amoxicillin 500 mg PO TID 06/23/16 06/23/16 Aspirin [Adult Low Dose Aspirin EC] 81 mg PO DAILY 06/23/16 06/23/16 Atorvastatin [Lipitor] 20 mg PO 06/23/16 06/23/16 Calcitriol [Rocaltrol] 0.25 mcg PO DAILY 06/23/16 06/23/16 Clopidogrel [Plavix] 75 mg PO DAILY 06/23/16 06/23/16 Latanoprost Ophth [Xalatan 0.005%] 1 drops BOTH EYES 06/23/16 06/23/16 Multivitamins, Thera [Multivitamin 1 tab PO DAILY 06/23/16 06/23/16 (formulary)] Sodium Bicarbonate Tab 650 mg PO BID 06/23/16 06/23/16 Tacrolimus [Prograf] 2 mg PO HS 06/23/16 06/23/16 amLODIPine [Norvasc] 10 mg PO DAILY 06/23/16 06/23/16 metFORMIN HCL [Glucophage] 500 mg PO BID 06/23/16 06/23/16 predniSONE See Taper PO DAILY 06/23/16 06/23/16 Allergies Allergy/AdvReac Type Severity Reaction Status Date / Time No Known Allergies Allergy Verified 06/23/16 14:50 Review of Systems ROS Statement: Those systems with pertinent positive or pertinent negative responses have been documented in the HPI. ROS Other: All systems not noted in ROS Statement are negative. Past Medical History Past Medical History: Chest Pain / Angina, COPD, Diabetes Mellitus, Hyperlipidemia, Hypertension Additional Past Medical History / Comment(s): Hepatitis C History of Any Multi-Drug Resistant Organisms: None Reported Additional Past Surgical History / Comment(s): Kidney transplant Past Anesthesia/Blood Transfusion Reactions: No Reported Reaction Past Psychological History: No Psychological Hx Reported Smoking Status: Current every day smoker Past Alcohol Use History: None Reported Past Drug Use History: None Reported Additional Drug Use History / Comment(s): smokes less than a pack of cigs a day General Exam - General Exam Comments Initial Comments: GENERAL: Patient is well-developed and well-nourished. Patient is nontoxic and well- hydrated and is in mild distress. ENT: Neck is soft and supple. No significant lymphadenopathy is noted. Oropharynx is clear. Dry mucous membranes. Neck has full range of motion without eliciting any pain. EYES: The sclera were anicteric and conjunctiva were pink and moist. Extraocular movements were intact and pupils were equal round and reactive to light. Eyelids were unremarkable. PULMONARY: Unlabored respirations. Good breath sounds bilaterally. No audible rales rhonchi or wheezing was noted. CARDIOVASCULAR: There is a regular rate and rhythm without any murmurs gallops or rubs. ABDOMEN: Soft and nontender with normal bowel sounds. No palpable organomegaly was noted. There is no palpable pulsatile mass. SKIN: Skin is clear with no lesions or rashes and otherwise unremarkable. NEUROLOGIC: Patient is alert and oriented x3. Cranial nerves II through XII are grossly intact. Motor and sensory are also intact. Normal speech, volume and content. Symmetrical smile. MUSCULOSKELETAL: Normal extremities with adequate strength and full range of motion. No lower extremity swelling or edema. No calf tenderness. LYMPHATICS: No significant lymphadenopathy is noted PSYCHIATRIC: Normal psychiatric evaluation. Normal interpersonal interactions appears functionally intact in deals appropriately with others. No signs of depression. No signs of anxiety. Limitations: no limitations Course Vital Signs 06/23/16 06/23/16 14:29 15:22 Temperature 97.7 F Pulse Rate 83 83 Respiratory 16 18 Rate Blood Pressure 158/100 143/89 O2 Sat by Pulse 97 98 Oximetry Medical Decision Making - Medical Decision Making EKG shows sinus rhythm with an occasional PVC at a 92 bpm AK interval is 126 QRS is 90 QT interval 372 QTC is 460 per patient's EKG shows no ST segment elevation or depression patient however does have some inverted T waves in V5 and V6. I started the patient on an insulin drip. I called because he agreed to admit the patient I admitted the patient I wrote admitting orders. - Lab Data Result diagrams: 06/23/16 14:32 06/23/16 14:32 Lab Results 06/23/16 06/23/16 06/23/16 Range/Units 14:32 14:32 14:32 WBC 8.3 (3.8-10.6) k/uL RBC 5.44 (4.30-5.90) m/uL Hgb 16.8 (13.0-17.5) gm/dL Hct 50.3 (39.0-53.0) % MCV 92.5 (80.0-100.0) fL MCH 30.9 (25.0-35.0) pg MCHC 33.4 (31.0-37.0) g/dL RDW 13.2 (11.5-15.5) % Plt Count 133 L (150-450) k/uL Neutrophils % 85 % Lymphocytes % 12 % Monocytes % 2 % Eosinophils % 1 % Basophils % 0 % Neutrophils # 7.0 (1.3-7.7) k/uL Lymphocytes # 1.0 (1.0-4.8) k/uL Monocytes # 0.2 (0-1.0) k/uL Eosinophils # 0.1 (0-0.7) k/uL Basophils # 0.0 (0-0.2) k/uL PT (9.0-12.0) sec INR (<1.1) APTT (22.0-30.0) sec Sodium 133 L (137-145) mmol/L Potassium 4.6 (3.5-5.1) mmol/L Chloride 103 (98-107) mmol/L Carbon Dioxide 25 (22-30) mmol/L Anion Gap 5 mmol/L BUN 39 H (9-20) mg/dL Creatinine 1.43 H (0.66-1.25) mg/dL Est GFR (MDRD) Af Amer >60 (>60 ml/min/1.73 sqM) Est GFR (MDRD) Non-Af 50 (>60 ml/min/1.73 sqM) Glucose 639 H* (74-99) mg/dL Calcium 9.0 (8.4-10.2) mg/dL Magnesium 1.3 L (1.6-2.3) mg/dL Total Bilirubin 0.7 (0.2-1.3) mg/dL AST 76 H (17-59) U/L ALT 74 H (21-72) U/L Alkaline Phosphatase 127 H (38-126) U/L Total Creatine Kinase 74 (55-170) U/L CK-MB (CK-2) 2.6 H* (0.0-2.4) ng/mL CK-MB (CK-2) Rel Index 3.5 Troponin I 0.071 H* (0.000-0.034) ng/mL Total Protein 5.8 L (6.3-8.2) g/dL Albumin 2.7 L (3.5-5.0) g/dL Urine Color Urine Appearance (Clear) Urine pH (5.0-8.0) Ur Specific Allen (1.001-1.035) Urine Protein (Negative) Urine Glucose (UA) (Negative) Urine Ketones (Negative) Urine Blood (Negative) Urine Nitrite (Negative) Urine Bilirubin (Negative) Urine Urobilinogen (<2.0) mg/dL Ur Leukocyte Esterase (Negative) Urine RBC (0-5) /hpf Urine WBC (0-5) /hpf Acetone, Qual Negative (Negative) 05/02/17 05/02/17 Range/Units 14:32 14:50 WBC (3.8-10.6) k/uL RBC (4.30-5.90) m/uL Hgb (13.0-17.5) gm/dL Hct (39.0-53.0) % MCV (80.0-100.0) fL MCH (25.0-35.0) pg MCHC (31.0-37.0) g/dL RDW (11.5-15.5) % Plt Count (150-450) k/uL Neutrophils % % Lymphocytes % % Monocytes % % Eosinophils % % Basophils % % Neutrophils # (1.3-7.7) k/uL Lymphocytes # (1.0-4.8) k/uL Monocytes # (0-1.0) k/uL Eosinophils # (0-0.7) k/uL Basophils # (0-0.2) k/uL PT 11.6 (9.0-12.0) sec INR 1.2 (<1.1) APTT 23.5 (22.0-30.0) sec Sodium (137-145) mmol/L Potassium (3.5-5.1) mmol/L Chloride (98-107) mmol/L Carbon Dioxide (22-30) mmol/L Anion Gap mmol/L BUN (9-20) mg/dL Creatinine (0.66-1.25) mg/dL Est GFR (MDRD) Af Amer (>60 ml/min/1.73 sqM) Est GFR (MDRD) Non-Af (>60 ml/min/1.73 sqM) Glucose (74-99) mg/dL Calcium (8.4-10.2) mg/dL Magnesium (1.6-2.3) mg/dL Total Bilirubin (0.2-1.3) mg/dL AST (17-59) U/L ALT (21-72) U/L Alkaline Phosphatase (38-126) U/L Total Creatine Kinase (55-170) U/L CK-MB (CK-2) (0.0-2.4) ng/mL CK-MB (CK-2) Rel Index Troponin I (0.000-0.034) ng/mL Total Protein (6.3-8.2) g/dL Albumin (3.5-5.0) g/dL Urine Color Light Yellow Urine Appearance Clear (Clear) Urine pH 6.0 (5.0-8.0) Ur Specific Allen 1.024 (1.001-1.035) Urine Protein 2+ H (Negative) Urine Glucose (UA) 4+ H (Negative) Urine Ketones Negative (Negative) Urine Blood Trace H (Negative) Urine Nitrite Negative (Negative) Urine Bilirubin Negative (Negative) Urine Urobilinogen <2.0 (<2.0) mg/dL Ur Leukocyte Esterase Negative (Negative) Urine RBC 1 (0-5) /hpf Urine WBC 1 (0-5) /hpf Acetone, Qual (Negative) Disposition Clinical Impression: Hyperglycemia, Dehydration Disposition: ADMITTED IP TO THIS [facility] Time of Disposition: 15:36
[2016-06-23 14:52] LABS: Basophils % (A) 0 %; CH 31.1; CHCM 33.7; Eosinophils # (A) 0.1 k/uL (0-0.7); Eosinophils % (A) 1 %; HCT 50.3 % (39.0-53.0); HDW 2.46; HGB 16.8 gm/dL (13.0-17.5); Luc # (Auto) 0.05; Luc % (Auto) 1; Lymphocytes % (A) 12 %; MCH 30.9 pg (25.0-35.0); MCHC 33.4 g/dL (31.0-37.0); MCV 92.5 fL (80.0-100.0); Mean Platelet Volume 9.7; Monocytes # (A) 0.2 k/uL (0-1.0); Monocytes % (A) 2 %; Neutrophils % (A) 85 %; RBC 5.44 m/uL (4.30-5.90); RDW 13.2 % (11.5-15.5); WBC 8.3 k/uL (3.8-10.6); WBC (Perox) 7.98
[2016-06-23 15:03] LABS: INR 1.2 (<1.1); Partial Thromboplastin Time 23.5 sec (22.0-30.0); Prothrombin Time 11.6 sec (9.0-12.0)
[2016-06-23 15:05] LABS: Appearance,Urine Clear (Clear); Bilirubin,Urine Negative (Negative); Glucose,Urine (UA) 4+ (Negative); Ketones,Urine Negative (Negative); Leukocyte Esterase,Urine Negative (Negative); Nitrite,Urine Negative (Negative); Particle Count 702; Protein,Urine 2+ (Negative); RBC,Urine 1 /hpf (0-5); Specific Gravity,Urine 1.024 (1.001-1.035); UA Billing (MACRO vs. MICRO) MICRO; Urobilinogen,Urine <2.0 mg/dL (<2.0); WBC,Urine 1 /hpf (0-5)
[2016-06-23 15:07] LABS: ALT 74 U/L (21-72); AST 76 U/L (17-59); Alkaline Phosphatase 127 U/L (38-126); Anion Gap 5 mmol/L; Blood Urea Nitrogen 39 mg/dL (9-20); Carbon Dioxide 25 mmol/L (22-30); Chloride 103 mmol/L (98-107); Magnesium 1.3 mg/dL (1.6-2.3); Non-African American GFR(MDRD) 50 (>60 ml/min/1.73 sqM); Potassium 4.6 mmol/L (3.5-5.1); Sodium 133 mmol/L (137-145); Total Bilirubin 0.7 mg/dL (0.2-1.3); Total Protein 5.8 g/dL (6.3-8.2)
--- NOTE | 2016-06-23 15:22 | XR ---
EXAMINATION TYPE: XR chest 2V DATE OF EXAM: 06/23/2016 3:11 PM COMPARISON: 05/21/2016 HISTORY: 61-year-old male with chest pain and dizziness TECHNIQUE: Frontal and lateral views FINDINGS: The cardiomediastinal silhouette, aorta, and pulmonary vasculature are within normal limits. Suggesti on of a left perihilar bulla. Mild hyperinflation is noted. Lungs and pleural spaces are otherwise cl ear. IMPRESSION: No acute cardiopulmonary process. Suspect underlying emphysema with a large left perihilar bulla.
[2016-06-23 15:28] LABS: Glucose 639 mg/dL (74-99)
[2016-06-23 15:29] LABS: Creatine Kinase MB 2.6 ng/mL (0.0-2.4); Troponin I 0.071 ng/mL (0.000-0.034)
[2016-06-23] MEDS ORDERED: SODIUM CHLORIDE 0.9% 1,000 ML IV STA (15:32)
[2016-06-23] MEDS ORDERED: SODIUM CHLORIDE 0.9% 1,000 ML IV ONE ×2 (15:41→15:50)
[2016-06-23] MEDS ORDERED: INSULIN REGULAR 100 UNIT in SODIUM CHLORIDE 0.9% 100 ML IV ONE (15:45)
[2016-06-23 16:22] LABS: Glucose,Whole Blood 552 mg/dL (75-99)
[2016-06-23 16:24] LABS: Glucose,Whole Blood 597 mg/dL (75-99)
[2016-06-23] MEDS ORDERED: Magnesium Replacement Protocol 1 EACH MISC MISCELLANE PRN (16:27)
[2016-06-23] MEDS ORDERED: Potassium Replacement Protocol 1 EACH MISC MISCELLANE PRN (16:27)
[2016-06-23] MEDS ORDERED: INSULIN REGULAR 100 UNIT in SODIUM CHLORIDE 0.9% 100 ML IV SCH (16:30)
[2016-06-23] MEDS: SODIUM CHLORIDE 0.9% 1,000 ML IV SCH (16:54)
[2016-06-23] MEDS: MAGNESIUM SULFATE-D5W PMX 1 GM in DEXTROSE/WATER 1 100ML.BAG IVPB SCH ×4 (17:06→22:53)
[2016-06-23] MEDS: INSULIN LISPRO (humaLOG) 300 UNIT/3 ML VIAL SQ SCH (17:06)
[2016-06-23 17:42] LABS: Glucose,Whole Blood 390 mg/dL (75-99)
[2016-06-23 18:02] LABS: Glucose,Whole Blood 365 mg/dL (75-99)
[2016-06-23 18:31] LABS: Glucose,Whole Blood 341 mg/dL (75-99)
[2016-06-23 19:05] LABS: Glucose,Whole Blood 250 mg/dL (75-99)
[2016-06-23 20:17] LABS: Hemoglobin A1C 12.4 % (4.2-6.1)
[2016-06-23 20:46] LABS: Glucose,Whole Blood 189 mg/dL (75-99)
[2016-06-23] MEDS ORDERED: INSULIN GLARGINE 100 UNIT/ML 10 ML VIAL SQ SCH (21:00)
[2016-06-23] MEDS: TACROLIMUS 1 MG CAP PO SCH (21:09)
[2016-06-23] MEDS: ATORVASTATIN 20 MG TAB PO SCH (21:09)
[2016-06-23] MEDS: MYCOPHENOLATE MOFETIL 250 MG CAP PO SCH (21:09)
[2016-06-23] MEDS: SODIUM BICARBONATE TAB 650 MG TAB PO SCH (21:09)
[2016-06-24] MEDS: SODIUM CHLORIDE 0.9% 1,000 ML IV SCH ×3 (02:58→18:35)
[2016-06-24 06:06] LABS: Glucose,Whole Blood 319 mg/dL (75-99)
[2016-06-24] MEDS: INSULIN LISPRO (humaLOG) 300 UNIT/3 ML VIAL SQ SCH ×7 (06:41→23:11)
[2016-06-24] MEDS: PANTOPRAZOLE 40 MG TABLET PO SCH (06:42)
[2016-06-24 07:17] LABS: ALT 61 U/L (21-72); AST 54 U/L (17-59); Alkaline Phosphatase 92 U/L (38-126); Anion Gap 5 mmol/L; Blood Urea Nitrogen 38 mg/dL (9-20); Calcium 8.3 mg/dL (8.4-10.2); Carbon Dioxide 24 mmol/L (22-30); Chloride 108 mmol/L (98-107); Glucose 360 mg/dL (74-99); Magnesium 1.7 mg/dL (1.6-2.3); Non-African American GFR(MDRD) 53 (>60 ml/min/1.73 sqM); Potassium 3.7 mmol/L (3.5-5.1); Sodium 137 mmol/L (137-145); Total Bilirubin 0.6 mg/dL (0.2-1.3); Total Protein 4.9 g/dL (6.3-8.2)
[2016-06-24] MEDS ORDERED: INSULIN LISPRO (humaLOG) 300 UNIT/3 ML VIAL SQ SCH (07:30)
--- NOTE | 2016-06-24 08:58 | HP ---
DATE OF ADMISSION: Patient is a 61-year-old came in with complaints of polyuria, polydipsia. Found to have elevated blood sugars. Patient had recent renal transplant after which patient was placed on systemic steroids, because of which his blood sugars are highly elevated. Patient is on metformin and glipizide with uncontrolled blood sugars. Patient was admitted because of highly elevated blood sugars. Patient does not have any DKA. Patient does not appear to be in hyperosmolar coma, although patient is severely dehydrated because of polyuria and patient has acute renal failure secondary to that and patient will be started on IV fluids at 125 mL/h. Nephrology will be consulted because of the renal transplant and I am not sure how long he has been on 50 mg of prednisone. It may need to be down titrated and patient may end up needed 10 mg daily. REVIEW OF SYSTEMS: CONSTITUTIONAL: No fever, no malaise, no fatigue. HEENT: No recent visual problems or hearing problems. Denied any sore throat. CARDIOVASCULAR: No chest pain, orthopnea, PND, no palpitations, no syncope. PULMONARY: No shortness of breath, no cough, no hemoptysis. GASTROINTESTINAL: No diarrhea, no nausea, no vomiting, no abdominal pain. Normoactive bowel sounds. NEUROLOGICAL: No headaches, no weakness, no numbness. HEMATOLOGICAL: Denies any bleeding or petechiae. GENITOURINARY: Denies any burning micturition, frequency, or urgency. MUSCULOSKELETAL/RHEUMATOLOGICAL: Denies any joint pain, swelling, or any muscle pain. ENDOCRINE: As described in HPI. The rest of the 14 point review of systems is negative. Home medications include: 1. Lisinopril. 2. Mycophenolate. 3. Tacrolimus. 4. Glipizide. 5. Omeprazole. 6. Amoxicillin, not sure why he is amoxicillin. 7. Aspirin. 8. Atorvastatin. 9. Calcitriol. 10. Plavix. 11. Latanoprost. 12. Multivitamins. 13. Sodium bicarbonate. 14. Amlodipine. 15. Metformin. 16. Prednisone. ALLERGIES: No known drug allergies. Patient is on 50 mg of prednisone at this time. PAST MEDICAL HISTORY: COPD, diabetes mellitus, hyperlipidemia, hypertension, post renal transplant, history of hepatitis C. SOCIAL HISTORY: Patient does smoke 1 pack per of cigarettes per day. Denied any alcohol abuse or any drug abuse. FAMILY HISTORY: Significant for diabetes mellitus. PHYSICAL EXAMINATION: VITAL SIGNS: Temperature 97.1, pulse rate 85, respiratory rate of 18, blood pressure is 144/89, saturating at 97% on room air. GENERAL: Patient has mucous membranes ( ). HEENT: Pupils are round and equally reacting to light. EOMI. No scleral icterus. No conjunctival pallor. Normocephalic, atraumatic. No pharyngeal erythema. No thyromegaly. CARDIOVASCULAR: S1 and S2 present. No murmurs, rubs, or gallops. PULMONARY: Chest is clear to auscultation, no wheezing or crackles. ABDOMEN: Soft, nontender, nondistended, normoactive bowel sounds. No palpable organomegaly. MUSCULOSKELETAL: No joint swelling or deformity. EXTREMITIES: No cyanosis, clubbing, or pedal edema. NEUROLOGICAL: Gross neurological examination did not reveal any focal deficits. SKIN: No rashes. LABORATORY DATA: CBC and CMP are abnormal for low sodium of 133 secondary to pseudohyponatremia from hyperglycemia, creatinine is 1.43, BUN of 39. I do not have his baseline creatinine, magnesium of 1.3 which will be supplemented. AST and ALT are minimally elevated today, alkaline phosphatase is minimally elevated as well. ( ) probably related to dehydration and troponin is minimally elevated to 0.71 which is also secondary to dehydration. The patient does not have any chest pain and chest x-ray did not show any acute cardiopulmonary process. There is some emphysematous bullae. Patient probably has COPD without any acute exacerbation. ASSESSMENT AND PLAN: 1. Severe hyperglycemia without any diabetic ketoacidosis or hyperosmolar state. Patient is on IV insulin which will be transitioned to subcutaneous insulin and Lantus with 30 units at bedtime along with a sliding scale of insulin uptitrated as needed. 2. Severe dehydration. Patient will be started on IV fluids leading to acute renal failure. ( ) BUN and creatinine patient's renal failure is mostly acute renal failure. 3. Pseudohyponatremia from hyperglycemia, hypomagnesemia, potassium will be supplemented and AST and ALT are elevated because of hepatitis C. This is a chronic elevation with mild troponin elevation due to dehydration. Will repeat a couple more labs. 4. Chronic obstructive pulmonary disease without any acute exacerbation.
[2016-06-24] MEDS ORDERED: predniSONE 5 MG TAB PO SCH (09:00)
[2016-06-24] MEDS: amLODIPine 10 MG TAB PO SCH (10:21)
[2016-06-24] MEDS: CLOPIDOGREL 75 MG TAB PO SCH (10:22)
[2016-06-24] MEDS: TACROLIMUS 1 MG CAP PO SCH ×2 (10:22→20:51)
[2016-06-24] MEDS: CALCITRIOL 0.25 MCG CAP PO SCH (10:22)
[2016-06-24] MEDS: SODIUM BICARBONATE TAB 650 MG TAB PO SCH ×2 (10:22→20:50)
[2016-06-24] MEDS: LISINOPRIL 10 MG TAB PO SCH (10:23)
[2016-06-24] MEDS: MYCOPHENOLATE MOFETIL 250 MG CAP PO SCH ×2 (10:23→20:47)
[2016-06-24] MEDS: MULTIVITAMINS, THERA 1 EACH TAB PO SCH (10:23)
[2016-06-24] MEDS: ASPIRIN 81 MG CHEW PO SCH (10:23)
[2016-06-24 11:47] LABS: Glucose,Whole Blood 82 mg/dL (75-99)
[2016-06-24 12:09] VITALS: BMI 24.5
[2016-06-24 16:49] LABS: Glucose,Whole Blood 288 mg/dL (75-99)
--- NOTE | 2016-06-24 16:56 | CONS ---
DATE OF CONSULTATION: 06/24/2016 REASON FOR CONSULTATION: Kidney transplant. 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 Patient is status post -donor transplant at [place] on 04/01/2007. Currently maintained on Prograf, CellCept and prednisone. Patient's serum creatinine had been elevated recently and he was seen by the transplant team. He had a transplant biopsy done which showed evidence of rejection, and therefore the prednisone was recently increased. He is currently on a tapering dose and he was admitted to the hospital with dizziness, not feeling well. He was found to have significantly elevated blood sugar level at 597. There is no evidence of DKA. Patient was maintained on insulin. His sugar has improved. The last reading was 82 mg/dL. Patient has been receiving IV fluids. He denies any significant complaints currently. Past medical history is significant for: 1. Hepatitis C, with patient not having completed his interferon treatment. Liver biopsy in 2010 showed mild fibrosis. 2. Hyperlipidemia. 3. History of leukoplakia. 4. Benign hypertension. 5. Secondary hyperparathyroidism. 6. Type 2 diabetes. SOCIAL HISTORY: Positive for smoking. No history of drug abuse or alcohol abuse. REVIEW OF SYSTEMS: As per HPI. Other systems negative. Medications at home included: 1. Lisinopril. 2. MMF. 3. Tacrolimus. 4. Glipizide. 5. Omeprazole. 6. Prednisone. 7. Calcitriol. 8. Atorvastatin. 9. Aspirin. 10. Plavix. 11. Sodium bicarb. 12. Amlodipine. 13. Metformin. On examination, patient is comfortable, awake, alert, oriented x3. He is not in any acute distress. Blood pressure is 143/85, heart rate 74 per minute. He is afebrile. EXAMINATION OF THE HEART: S1 and S2. EXAMINATION OF THE LUNGS: Bilateral breath sounds are heard. ABDOMEN: Soft, nontender. Examination of lower extremities shows edema 1+ bilaterally. 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 Patient is moving all 4 extremities. Labs show sodium 137, potassium 3.7, BUN 38, serum creatinine 1.38. UA shows 2+ protein, glucose 4+ on initial admission. ASSESSMENT: 1. Acute kidney injury secondary to rejection, currently maintained on high-dose steroids, which is at a tapering dose. Will continue the planned taper. 2. Hyperglycemia from high-dose steroids, currently improved. 3. Secondary hyperparathyroidism. Continue with calcitriol. 4. Mild volume overload. Will discontinue IV fluids and expect improvement in edema with decreasing prednisone dose. I will hold off on diuretics for now. PLAN: Discontinue IV fluids. Continue current medications. Adjust oral hypoglycemic agents during the time that patient is on high-dose steroids. The prednisone is currently being tapered. Follow up as outpatient. Patient is stable for discharge from nephrology standpoint.
[2016-06-24] MEDS: MAGNESIUM SULFATE-D5W PMX 1 GM in DEXTROSE/WATER 1 100ML.BAG IVPB SCH ×2 (17:28→18:33)
[2016-06-24 18:47] LABS: Glucose,Whole Blood 370 mg/dL (75-99)
[2016-06-24] MEDS: ATORVASTATIN 20 MG TAB PO SCH (20:46)
[2016-06-24] MEDS ORDERED: LATANOPROST 0.005% OPHTH DROPS 2.5 ML BTL BOTH EYES SCH (21:00)
[2016-06-24] MEDS ORDERED: INSULIN GLARGINE 100 UNIT/ML 10 ML VIAL SQ SCH (21:00)
[2016-06-24 21:59] LABS: Glucose,Whole Blood 371 mg/dL (75-99)
[2016-06-24 22:27] LABS: Glucose,Whole Blood 400 mg/dL (75-99)
[2016-06-25 06:15] LABS: Glucose,Whole Blood 210 mg/dL (75-99)
[2016-06-25] MEDS: INSULIN LISPRO (humaLOG) 300 UNIT/3 ML VIAL SQ SCH ×6 (06:51→17:25)
[2016-06-25] MEDS: PANTOPRAZOLE 40 MG TABLET PO SCH (06:52)
[2016-06-25 06:53] LABS: Basophils % (A) 0 %; CH 31.3; CHCM 35.1; Eosinophils # (A) 0.1 k/uL (0-0.7); Eosinophils % (A) 1 %; HDW 2.59; HGB 15.3 gm/dL (13.0-17.5); Luc # (Auto) 0.12; Luc % (Auto) 2; Lymphocytes # (A) 2.5 k/uL (1.0-4.8); Lymphocytes % (A) 32 %; MCH 30.3 pg (25.0-35.0); MCHC 33.9 g/dL (31.0-37.0); MCV 89.3 fL (80.0-100.0); Mean Platelet Volume 9.3; Monocytes # (A) 0.3 k/uL (0-1.0); Monocytes % (A) 4 %; Neutrophils # (A) 4.9 k/uL (1.3-7.7); Neutrophils % (A) 62 %; RBC 5.04 m/uL (4.30-5.90); WBC 7.9 k/uL (3.8-10.6); WBC (Perox) 7.85
[2016-06-25 07:29] LABS: Anion Gap 5 mmol/L; Blood Urea Nitrogen 40 mg/dL (9-20); Calcium 8.7 mg/dL (8.4-10.2); Carbon Dioxide 21 mmol/L (22-30); Chloride 112 mmol/L (98-107); Glucose 241 mg/dL (74-99); Magnesium 1.8 mg/dL (1.6-2.3); Non-African American GFR(MDRD) 51 (>60 ml/min/1.73 sqM); Potassium 3.8 mmol/L (3.5-5.1); Sodium 138 mmol/L (137-145)
--- NOTE | 2016-06-25 07:53 | DS ---
DATE OF ADMISSION: 06/23/2016 DATE OF DISCHARGE: This is a 61-year-old, came in with hyperglycemia and dehydration secondary to hyperglycemia. Patient has recent renal transplant after which patient was started on systemic steroids which are being tapered down and patient came in with highly elevated blood sugars going up to 700 affecting his hydration status and patient was on IV insulin which was discontinued and part of the reason for his highly elevated blood sugars is systemic steroids. Along with that, patient appears to have chronically elevated blood sugars as well with hemoglobin A1c of 12. Depending on the blood sugars here, I am empirically discharging him on 42 units of Lantus and 13 units of premeal insulin, although his blood sugars are expected to be elevated for a few more days because of his systemic steroids which is being tapered down. It is hard to titrate when he is tapering down the steroids. Patient needs to closely follow with Dr. Trav Velasquez as an outpatient because of that reason and oral hypoglycemics may not be a good idea in his situation because of his poor renal function. Patient diabetic education will be provided and diabetic supplies will be provided and patient also has COPD without any acute exacerbation. I will give him Spiriva and Symbicort albuterol inhalation treatments. Patient was seen and examined on the day of discharge. Vitals are stable. PHYSICAL EXAMINATION: GENERAL: The patient is alert and oriented x3, not in any acute distress. Well developed, well nourished. HEENT: Pupils are round and equally reacting to light. EOMI. No scleral icterus. No conjunctival pallor. Normocephalic, atraumatic. No pharyngeal erythema. No thyromegaly. CARDIOVASCULAR: S1 and S2 present. No murmurs, rubs, or gallops. PULMONARY: Chest is clear to auscultation, no wheezing or crackles. ABDOMEN: Soft, nontender, nondistended, normoactive bowel sounds. No palpable organomegaly. MUSCULOSKELETAL: No joint swelling or deformity. EXTREMITIES: No cyanosis, clubbing, or pedal edema. NEUROLOGICAL: Gross neurological examination did not reveal any focal deficits. SKIN: No rashes. FINAL DIAGNOSES: 1. Severe hyperglycemia secondary to systemic steroids. 2. Type 2 diabetes mellitus. 3. Severe dehydration secondary to polyuria from hyperglycemia. Pseudohyponatremia secondary to hyperglycemia which improved. 4. Mild elevation in troponin secondary to renal dysfunction. 5. Chronic kidney disease secondary post-renal transplant with history of diabetic nephropathy in the past. 6. Post renal transplant. Patient will continue his post renal transplant medications and patient will follow with Dr. Trav Velasquez in 3 to 7 days. Follow up closely in the Renal Transplant Clinic. Activity as tolerated. Cardiac and diabetic 1800 calorie diet and renal diet. Spent greater than 35 minutes in total discharge process.
[2016-06-25] MEDS: ASPIRIN 81 MG CHEW PO SCH (09:14)
[2016-06-25] MEDS: CLOPIDOGREL 75 MG TAB PO SCH (09:14)
[2016-06-25] MEDS: amLODIPine 10 MG TAB PO SCH (09:14)
[2016-06-25] MEDS: CALCITRIOL 0.25 MCG CAP PO SCH (09:15)
[2016-06-25] MEDS: MULTIVITAMINS, THERA 1 EACH TAB PO SCH (09:16)
[2016-06-25] MEDS: LISINOPRIL 10 MG TAB PO SCH (09:16)
[2016-06-25] MEDS: SODIUM BICARBONATE TAB 650 MG TAB PO SCH (09:16)
[2016-06-25] MEDS: TACROLIMUS 1 MG CAP PO SCH (09:16)
[2016-06-25] MEDS: MYCOPHENOLATE MOFETIL 250 MG CAP PO SCH (10:01)
[2016-06-25] MEDS ORDERED: METOPROLOL TARTRATE 25 MG TAB PO SCH (10:45)
--- NOTE | 2016-06-25 10:45 | P.CRDCN ---
History of Present Illness Consult date: 06/25/16 Requesting physician: Richard Youssef Reason for Consult (text): Abnormal troponin Chief complaint: Elevated blood sugars History of present illness: This is a 61-year-old gentleman with known history of hypertension, hyperlipidemia, diabetes, hepatitis C, kidney failure status post kidney transplant, nicotine dependence who came to the hospital because his blood sugars were significantly high. Patient is chronically on steroids at home which she has been tapering down and in spite of that the symptoms of a dry mouth and polyuria have continued. Patient also states that he's been getting lightheaded and feeling mildly weak at home. For this reason he came to the emergency room for further evaluation. Blood sugar on arrival 639, BUN 39, creatinine 1.4, sodium 133. Magnesium level I.3 on admission, AST 76, ALT 74, alk phos 127. Troponins 0.071, 0.073, 0.081. 2+ protein in the urine, 4+ glucose in the urine, trace of blood in the urine. CBC normal. Pressure on arrival 158/100, heart rate in the 80s, 97% on room air. Chest x-ray did not reveal any acute cardiopulmonary process. Suspect underlying emphysema with large left perihilar bulla. EKG shows a normal sinus rhythm with nonspecific ST -T wave changes in the lateral leads. Cardiology consultation was requested because of the abnormal troponins. Patient was also noted on the monitor to have 2 brief runs of nonsustained ventricular tachycardia as well as occasional PVCs. Overall, this morning the patient states he feels well, denies any chest pain, no palpitations, breathing is overall stable. Past Medical History Past Medical History: Chest Pain / Angina, COPD, Diabetes Mellitus, Hyperlipidemia, Hypertension Additional Past Medical History / Comment(s): Hepatitis C, History of Any Multi-Drug Resistant Organisms: None Reported Additional Past Surgical History / Comment(s): Kidney transplant in past. had bx of transplanted kidney at [facility] in may 2016-was started on steriod therapy. Past Anesthesia/Blood Transfusion Reactions: No Reported Reaction Past Psychological History: No Psychological Hx Reported Smoking Status: Current every day smoker Past Alcohol Use History: None Reported Additional Past Alcohol Use History / Comment(s): started smoking 1969 has been cutting down-currently smokes 4-5 cig per day Past Drug Use History: None Reported Additional Drug Use History / Comment(s): smokes less than a pack of cigs a day - Past Family History Father Family Medical History: Cancer Mother Family Medical History: No Reported History Medications and Allergies Home Medications Medication Instructions Recorded Confirmed Type Lisinopril [Prinivil] 10 mg PO DAILY 03/26/14 06/23/16 History Mycophenolate Mofetil [Cellcept] 750 mg PO BID 03/26/14 06/23/16 History Tacrolimus [Prograf] 3 mg PO QAM 03/26/14 06/23/16 History Omeprazole 20 mg PO DAILY 11/27/15 06/23/16 History Amoxicillin 500 mg PO TID 06/23/16 06/23/16 History Aspirin [Adult Low Dose Aspirin EC] 81 mg PO DAILY 06/23/16 06/23/16 History Atorvastatin [Lipitor] 20 mg PO HS 06/23/16 06/23/16 History Calcitriol [Rocaltrol] 0.25 mcg PO DAILY 06/23/16 06/23/16 History Clopidogrel [Plavix] 75 mg PO DAILY 06/23/16 06/23/16 History Latanoprost Ophth [Xalatan 0.005%] 1 drops BOTH EYES HS 06/23/16 06/23/16 History Multivitamins, Thera [Multivitamin 1 tab PO DAILY 06/23/16 06/23/16 History (formulary)] Sodium Bicarbonate Tab 650 mg PO BID 06/23/16 06/23/16 History Tacrolimus [Prograf] 2 mg PO HS 06/23/16 06/23/16 History amLODIPine [Norvasc] 10 mg PO DAILY 06/23/16 06/23/16 History Allergies Allergy/AdvReac Type Severity Reaction Status Date / Time No Known Allergies Allergy Verified 06/23/16 14:50 Physical Exam Vitals: Vital Signs Temp Pulse Resp BP Pulse Ox 06/25/16 07:42 96.5 F L 80 18 163/100 97 06/25/16 04:00 98.1 F 73 16 156/92 97 06/25/16 00:00 97.9 F 79 17 145/82 98 06/24/16 20:00 98.1 F 77 16 137/90 97 06/24/16 16:00 78 14 152/93 93 L 06/24/16 12:00 70 14 133/68 95 Intake and Output 06/24/16 06/25/16 06/25/16 22:59 06:59 14:59 Intake Total 200 500 Output Total 094 831 7509 Balance -400 -450 -500 Intake: Oral 200 500 Output: Urine [id number] Other: Voiding Method Urinal Urinal # Voids 1 1 Weight 81.7 kg Assessment and plan #1 severe hyperglycemia without evidence of diabetic ketoacidosis. #2 Abnormal troponins, not consistent with acute coronary syndrome likely secondary to oxygen supply and demand mismatch. #3 hypertension #4 history of renal transplant #5 hepatitis C #6 COPD #7 nicotine dependence #8 acute on chronic renal failure #9 hypomagnesemia, replaced. #10 abnormal LFTs. #11 hyperlipidemia #12 diabetes Plan Will obtain an echocardiogram with Doppler study to assess the patient's LV function. We will continue baby aspirin daily, along with Lipitor, beta lashay to the medication regime. Replace potassium and magnesium. Further recommendations to follow. DNP note has been reviewed, I agree with a documented findings and plan of care. Patient was seen and examined. Results 06/25/16 06:00 06/25/16 06:00 CBC 06/25/16 Range/Units 06:00 WBC 7.9 (3.8-10.6) k/uL RBC 5.04 (4.30-5.90) m/uL Hgb 15.3 (13.0-17.5) gm/dL Hct 45.0 (39.0-53.0) % Plt Count 116 L (150-450) k/uL Comprehensive Metabolic Panel 06/25/16 Range/Units 06:00 Sodium 138 (137-145) mmol/L Potassium 3.8 (3.5-5.1) mmol/L Chloride 112 H (98-107) mmol/L Carbon Dioxide 21 L (22-30) mmol/L BUN 40 H (9-20) mg/dL Creatinine 1.42 H (0.66-1.25) mg/dL Glucose 241 H (74-99) mg/dL Calcium 8.7 (8.4-10.2) mg/dL Current Medications Generic Name Dose Route Start Last Admin Trade Name Freq PRN Reason Stop Dose Admin Amlodipine Besylate 10 mg 06/24/16 09:00 06/25/16 09:14 Norvasc PO 10 mg DAILY SERAFIN Administration Aspirin 81 mg 06/24/16 09:00 06/25/16 09:14 Aspirin PO 81 mg DAILY SERAFIN Administration Atorvastatin Calcium 20 mg 06/23/16 21:00 06/24/16 20:46 Lipitor PO 20 mg HS SERAFIN Administration Calcitriol 0.25 mcg 06/24/16 09:00 06/25/16 09:15 Rocaltrol PO 0.25 mcg DAILY SERAFIN Administration Clopidogrel Bisulfate 75 mg 06/24/16 09:00 06/25/16 09:14 Plavix PO 75 mg DAILY SERAFIN Administration Insulin Glargine 45 unit 06/24/16 21:00 06/24/16 20:46 Lantus SQ 45 unit HS SERAFIN Administration Insulin Human Lispro 0 unit 06/23/16 21:13 06/25/16 06:51 Humalog SQ 6 unit ACHS SERAFIN Administration Protocol Insulin Human Lispro 14 unit 06/24/16 17:30 06/25/16 07:11 Humalog SQ 14 unit AC-TID SERFAIN Administration Latanoprost 1 drops 06/24/16 21:00 06/24/16 20:51 Xalatan 0.005% BOTH EYES 1 drops HS SERAFIN Administration Lisinopril 10 mg 06/24/16 09:00 06/25/16 09:16 Zestril PO 10 mg DAILY SERAFIN Administration Miscellaneous Information 1 each 06/23/16 16:27 Magnesium Per Protocol MISCELLANE DAILY PRN Per Protocol Protocol Miscellaneous Information 1 each 06/23/16 16:27 Potassium Per Protocol MISCELLANE DAILY PRN Per Protocol Protocol Multivitamins 1 each 06/24/16 09:00 06/25/16 09:16 Theragran PO 1 each DAILY SERAFIN Administration Mycophenolate Mofetil 750 mg 06/23/16 21:00 06/25/16 10:01 Cellcept PO 750 mg BID SERAFIN Administration Pantoprazole Sodium 40 mg 06/24/16 07:30 06/25/16 06:52 Protonix PO 40 mg AC-BRKFST SERAFIN Administration Prednisone 35 mg 06/27/16 16:18 PO 06/29/16 09:01 DAILY SERAFIN Sodium Bicarbonate 650 mg 06/23/16 21:00 06/25/16 09:16 Sodium Bicarbonate Tab PO 650 mg BID SERAFIN Administration Tacrolimus 2 mg 06/23/16 21:00 06/24/16 20:51 Prograf PO 2 mg HS SERAFIN Administration Tacrolimus 3 mg 06/24/16 09:00 06/25/16 09:16 Prograf PO 3 mg QAM SERAFIN Administration Intake and Output 06/24/16 06/25/16 06/25/16 22:59 06:59 14:59 Intake Total 200 500 Output Total 906 646 9810 Balance -400 -450 -500 Intake: Oral 200 500 Output: Urine [id number] Other: Voiding Method Urinal Urinal # Voids 1 1 Weight 81.7 kg 06/25/16 06:00 06/25/16 06:00
[2016-06-25] MEDS: MAGNESIUM SULFATE-D5W PMX 1 GM in DEXTROSE/WATER 1 100ML.BAG IVPB SCH ×2 (11:16→16:30)
[2016-06-25] MEDS: POTASSIUM CHLORIDE ER 20 MEQ TAB.ER PO SCH ×3 (11:16→17:46)
[2016-06-25 11:40] LABS: Glucose,Whole Blood 158 mg/dL (75-99)
[2016-06-25] MEDS ORDERED: MAGNESIUM OXIDE 400 MG TAB PO SCH (15:00)
--- NOTE | 2016-06-25 15:10 | PN ---
Patient is seen for followup for post-transplant care. He was admitted to the hospital with weakness and found to have significantly elevated blood sugars secondary to high-dose steroids, which he had been taking for new acute rejection noted on a recent transplant biopsy. Patient was supposed to be discharged yesterday; however, he developed 17 runs of V. tach and, therefore his discharge was held. He has been evaluated by Cardiology. The magnesium was slightly low which has been replaced. An echocardiogram has been ordered. Patient's potassium and magnesium were replaced. He is currently in normal sinus rhythm and fairly stable. On examination, blood pressure is 163/100, heart rate 80 per minute. He is afebrile. Examination of the heart, S1 and S2. Examination of the lungs, bilateral breath sounds are heard. Abdomen is soft, nontender. Examination of lower extremities shows edema 1+ bilaterally. 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 Patient is moving all 4 extremities. Labs show sodium 138, potassium 3.8, chloride 112, CO2 is 21, BUN 40, serum creatinine 1.42, hemoglobin 15.3 g/dL, magnesium is 1.8. ASSESSMENT: 1. Acute kidney injury secondary to acute rejection, currently maintained on tapering dose of steroids. His serum creatinine is slightly up from yesterday at 1.42 from 1.3 but patient's baseline has been around 1.4 mg/dL. May continue with the ABHISHEK inhibitors for now. 2. Hypertension, uncontrolled, maintained on Norvasc, Zestril 10 mg daily. Expect blood pressure to be better controlled with decreasing dose of steroids. Lopressor is at 25 b.i.d. which could be increased. His heart rate has been about 73 to 80 per minute. 3. Cardiac dysrhythmia with 17 runs of ventricular tachycardia, status post replacement of magnesium, been evaluated by Cardiology. Echocardiogram has been ordered. Patient is maintained on beta blockers. 4. Status post donor transplant in 2007, maintained on Prograf, Cell Sept and tapering dose of prednisone for acute rejection. 5. Metabolic acidosis, maintained on sodium bicarb. PLAN: Increase Lopressor to 50 mg twice a day. Check a Prograf level. Continue current medications. Repeat labs in a.m.
[2016-06-25 15:59] VITALS: BP 136/85; PULSE 74; RESP 16; TEMP 97.2
[2016-06-25 16:39] LABS: Glucose,Whole Blood 68 mg/dL (75-99)
[2016-06-25 17:01] LABS: Glucose,Whole Blood 120 mg/dL (75-99)
[2016-06-25] MEDS ORDERED: METOPROLOL TARTRATE 50 MG TAB PO SCH (21:00)
--- NOTE | 2016-06-26 08:32 | DS ---
DATE OF ADMISSION: 06/23/2016 DATE OF DISCHARGE: 06/25/2016 Patient is admitted secondary to hyperglycemia which is again secondary to systemic steroids. Patient was discharged yesterday, but just before discharge, patient went into nonsustained VT. Echocardiogram is being obtained. If that is normal, patient will be discharged. Patient was evaluated by Cardiology for that. Nonsustained VT is secondary to hypomagnesemia which is as a result of tacrolimus. I am go ahead and give him magnesium oxide and once he sees Dr. Velasquez, the magnesium levels and potassium basic metabolic profile need to be retested in the outpatient clinic in the Nephrology Clinic or Dr. Velasquez's clinic and patient will be discharged today. Patient was seen and examined on the day of discharge. Vitals are stable. PHYSICAL EXAMINATION: GENERAL: The patient is alert and oriented x3, not in any acute distress. Well developed, well nourished. HEENT: Pupils are round and equally reacting to light. EOMI. No scleral icterus. No conjunctival pallor. Normocephalic, atraumatic. No pharyngeal erythema. No thyromegaly. CARDIOVASCULAR: S1 and S2 present. No murmurs, rubs, or gallops. PULMONARY: Chest is clear to auscultation, no wheezing or crackles. ABDOMEN: Soft, nontender, nondistended, normoactive bowel sounds. No palpable organomegaly. MUSCULOSKELETAL: No joint swelling or deformity. EXTREMITIES: No cyanosis, clubbing, or pedal edema. NEUROLOGICAL: Gross neurological examination did not reveal any focal deficits. SKIN: No rashes. FINAL DIAGNOSES: 1. Severe hyperglycemia, secondary to systemic steroids. 2. Type 2 diabetes mellitus. 3. Severe dehydration. 4. Mild elevation in troponin. 5. Chronic kidney disease, post renal transplant. 6. History of diabetic nephropathy. 7. Nonsustained ventricular tachycardia secondary to hypomagnesemia. Please refer to my depart summary for further details and discharge summary yesterday. Consider that as a progress note. For further details of my discharge, please refer to my discharge summary from yesterday.
[2016-06-27] MEDS ORDERED: predniSONE 10 MG TAB PO SCH (16:18)
--- NOTE | 2016-06-30 15:41 | CDI ---
In responding to this query, please exercise your independent professional judgment. The [facility] Coding Staff and Clinical Documentation Specialists appreciate your assistance in clarifying documentation, maintaining compliance with coding guidelines, accurately documenting patients condition and capturing severity of illness. The fact that a question is asked does not imply that any particular answer is desired or expected. Communication forms are a method of clarifying documentation and are not made part of the Legal Health Record. Thank you in advance for your clarification. Last Revision, December 2014 Heavenly Duque [address] [facility] [place] [address] Documentation Clarification Form Date: 06/30/2016 3:20:00 PM From: Marleny Gee [facility] & Ana Brewster, [employer] Riveter and Ana = [phone] Admit Date: 06/23/2016 3:49:00 PM Patient Name: Mj Guillermo Visit Number: [id number] Discharge Date: 06-25-16 Dr. Kriss Brandon Please confirm if patient has chronic kidney disease and what stage -Discharge Summary states "CKD, post renal transplant" History/Risk Factors : Hypertension, diabetes, hyperglycemia, dehydration, COPD , hyponatremia, hypomagnesium, nonsustained VT, ARF, hepatitis C, secondary hyperparathyroidism, uncontrolled HTN, smoker. volume overload. Consult states "transplant at [facility] 2008. Had transplant bx done which showed evidence of rejection. 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 Treatment: IVF, Renal consult on 06-24-16. Patients medications include: Cellcept, Prednisone, Prograf, Plavix, Humalog, Insulin Human Regular, Lantus, Rocaltrol, Lipitor, Norvasc, ASA, Zestril, Mag-ox , Lopressor, Protonix. IVF-Yes 0.9 Saline In order to capture the severity of condition, please clarify if the condition signifies: CKD Stage 1 (GFR > 90) CKD Stage 2 (GFR 60-89) CKD Stage 3 (GFR 30-59) CKD Stage 4 (GFR 15-29) CKD Stage 5 (GFR <15) ESRD Unable to determine Other condition, please specify Please document in your progress notes and discharge summary in order to capture severity of illness and risk of mortality. Include clinical findings that support your diagnosis. FYI: Press F11 to launch patient chart. Place X here if this finding has no clinical significance, is not applicable or if you are not able to provide any additional documentation. PEDRO
--- NOTE | 2016-07-01 15:56 | ECHOF ---
Referral Reason:[facility] MEASUREMENTS -------- HEIGHT: 180.3 cm WEIGHT: 81.6 kg BP: 156/92 IVSd: 2.0 cm (0.6 - 1.1) LVIDd: 4.0 cm (3.9 - 5.3) LVPWd: 1.8 cm (0.6 - 1.1) IVSs: 2.2 cm LVIDs: 2.4 cm LVPWs: 2.2 cm LAESV Index (A-L): 24.69 ml/m Ao Diam: 3.4 cm (2.0 - 3.7) AV Cusp: 1.8 cm (1.5 - 2.6) LA Diam: 3.7 cm (2.7 - 3.8) MV EXCURSION: 15.271 mm (> 18.000) MV EF SLOPE: 59 mm/s (70 - 150) EPSS: 0.4 cm MV E Chidi: 0.52 m/s MV DecT: 236 ms MV A Chidi: 0.88 m/s MV E/A Ratio: 0.59 RAP: 5.00 mmHg RVSP: 29.77 mmHg FINDINGS -------- Sinus rhythm. This was a technically good study. There is severe concentric left ventricular hypertrophy. Overall left ventricular systolic function is normal with, an EF between 60 - 65 %. The right ventricle is normal in size. LA is midly dilated 29-33ml/m2. The right atrium is normal in size. Aortic valve is trileaflet and is mildly thickened. There is no evidence of aortic regurgitation. There is no evidence of aortic stenosis. Mild mitral annular calcification present. There is trace mitral regurgitation. Trace tricuspid regurgitation present. There is no evidence of pulmonary hypertension. The right ventricular systolic pressure, as measured by Doppler, is 29.77mmHg. The pulmonic valve is normal. The aortic root size is normal. There is no pericardial effusion. CONCLUSIONS -------- 1. Sinus rhythm. 2. The aortic root size is normal. 3. There is no pericardial effusion. 4. There is severe concentric left ventricular hypertrophy. 5. Overall left ventricular systolic function is normal with, an EF between 60 - 65 %. 6. LA is midly dilated 29-33ml/m2. 7. Aortic valve is trileaflet and is mildly thickened. 8. Mild mitral annular calcification present. 9. There is trace mitral regurgitation. 10. Trace tricuspid regurgitation present. 11. The right ventricular systolic pressure, as measured by Doppler, is 29.77mmHg. RADIO OPERATOR: Marcela Dahl RDCS
--- NOTE | 2016-07-06 13:04 | CDI ---
In responding to this query, please exercise your independent professional judgment. The [facility] Coding Staff and Clinical Documentation Specialists appreciate your assistance in clarifying documentation, maintaining compliance with coding guidelines, accurately documenting patients condition and capturing severity of illness. The fact that a question is asked does not imply that any particular answer is desired or expected. Communication forms are a method of clarifying documentation and are not made part of the Legal Health Record. Thank you in advance for your clarification. Last Revision, December 2014 Heaven[facility] Duque [address] [place] [address] Documentation Clarification Form Date: 07/06/2016 12:58:00 PM From: Marleny Gee & Ana Brewster, Legal Process Specialist & Ana @ [phone] Admit Date: 06/23/2016 3:49:00 PM Patient Name: Mj Guillermo Visit Number: [id number] Discharge Date: 06-25-16 Dr. Kriss Brandon Please dictate addendum re: CKD/ESRD-----Please confirm if patient has chronic kidney disease and what stage -Discharge Summary states "CKD, post renal transplant" History/Risk Factors : Hypertension, diabetes, hyperglycemia, dehydration, COPD , hyponatremia, hypomagnesium, nonsustained VT, ARF, hepatitis C, secondary hyperparathyroidism, uncontrolled HTN, smoker. volume overload. Consult states "transplant at [facility] [place] 2008. Had transplant bx done which showed evidence of rejection. 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 Treatment: IVF, Renal consult on 06-24-16. Patients medications include: Cellcept, Prednisone, Prograf, Plavix, Humalog, Insulin Human Regular, Lantus, Rocaltrol, Lipitor, Norvasc, ASA, Zestril, Mag-ox , Lopressor, Protonix. IVF-Yes 0.9 Saline In order to capture the severity of condition, please clarify if the condition signifies: CKD Stage 1 (GFR > 90) CKD Stage 2 (GFR 60-89) CKD Stage 3 (GFR 30-59) CKD Stage 4 (GFR 15-29) CKD Stage 5 (GFR <15) ESRD Unable to determine Other condition, please specify Please document in your progress notes and discharge summary in order to capture severity of illness and risk of mortality. Include clinical findings that support your diagnosis. FYI: Press F11 to launch patient chart. Place X here if this finding has no clinical significance, is not applicable or if you are not able to provide any additional documentation. : RUDID
== END 2016-06-25 18:51 | disposition home or self-care (01) | DRG 638 ==
LOC: EC 14:21 → 6SEL 15:49
PROVIDERS: ADMIT Internal Medicine; ATTEND Internal Medicine
DX: E11.65 Type 2 diabetes mellitus with hyperglycemia (principal); I47.2 Ventricular tachycardia; N17.8 Other acute kidney failure; T86.11 Kidney transplant rejection; E87.2 Acidosis; Z94.0 Kidney transplant status; N25.81 Secondary hyperparathyroidism of renal origin; E87.1 Hypo-osmolality and hyponatremia; E86.0 Dehydration; E83.42 Hypomagnesemia; J44.9 Chronic obstructive pulmonary disease, unspecified; I12.9 Hypertensive chronic kidney disease with stage 1 through stage 4 chronic kidney disease, or unspecified chronic kidney disease; N18.9 Chronic kidney disease, unspecified; T38.0X5A Adverse effect of glucocorticoids and synthetic analogues, initial encounter; B19.20 Unspecified viral hepatitis C without hepatic coma; I49.3 Ventricular premature depolarization; E11.22 Type 2 diabetes mellitus with diabetic chronic kidney disease; T45.1X5A Adverse effect of antineoplastic and immunosuppressive drugs, initial encounter; R74.8 Abnormal levels of other serum enzymes; E78.5 Hyperlipidemia, unspecified; E87.70 Fluid overload, unspecified; R42 Dizziness and giddiness; R53.1 Weakness; K74.0 Hepatic fibrosis; R35.8 Other polyuria; R63.1 Polydipsia; E11.21 Type 2 diabetes mellitus with diabetic nephropathy; F17.210 Nicotine dependence, cigarettes, uncomplicated; Z83.3 Family history of diabetes mellitus; Z79.52 Long term (current) use of systemic steroids; Z79.82 Long term (current) use of aspirin; Z79.899 Other long term (current) drug therapy; Z79.02 Long term (current) use of antithrombotics/antiplatelets; Z79.84 Long term (current) use of oral hypoglycemic drugs; Z71.3 Dietary counseling and surveillance; Z80.9 Family history of malignant neoplasm, unspecified; Z79.2 Long term (current) use of antibiotics
CPT/HCPCS: 36415; 71020; 80048; 80053; 81001; 82009; 82550; 82553; 83036; 83735; 84484; 85025; 85610; 85730; 93005; 93306; 96360; 99285

== ENCOUNTER → 2016-07-07 | Outpatient (CLI) | payer MEDICARE, OTHER ==
[2016-07-07 11:04] LABS: Basophils % (A) 0 %; CH 31.1; CHCM 34.1; Eosinophils # (A) 0.1 k/uL (0-0.7); Eosinophils % (A) 1 %; HCT 45.3 % (39.0-53.0); HDW 2.76; HGB 15.1 gm/dL (13.0-17.5); Luc # (Auto) 0.09; Luc % (Auto) 1; Lymphocytes # (A) 1.3 k/uL (1.0-4.8); Lymphocytes % (A) 14 %; MCH 30.5 pg (25.0-35.0); MCHC 33.4 g/dL (31.0-37.0); MCV 91.4 fL (80.0-100.0); Mean Platelet Volume 8.7; Monocytes # (A) 0.6 k/uL (0-1.0); Monocytes % (A) 6 %; Neutrophils # (A) 7.5 k/uL (1.3-7.7); Neutrophils % (A) 79 %; RBC 4.95 m/uL (4.30-5.90); RDW 13.5 % (11.5-15.5); WBC 9.6 k/uL (3.8-10.6); WBC (Perox) 8.88
[2016-07-07 11:11] LABS: ALT 78 U/L (21-72); AST 74 U/L (17-59); Alkaline Phosphatase 97 U/L (38-126); Anion Gap 6 mmol/L; Blood Urea Nitrogen 31 mg/dL (9-20); Calcium 8.5 mg/dL (8.4-10.2); Carbon Dioxide 27 mmol/L (22-30); Chloride 109 mmol/L (98-107); Cholesterol 253 mg/dL (<200); Glucose 72 mg/dL (74-99); Non-African American GFR(MDRD) 50 (>60 ml/min/1.73 sqM); Phosphorous 3.5 mg/dL (2.5-4.5); Potassium 3.3 mmol/L (3.5-5.1); Sodium 142 mmol/L (137-145); Total Bilirubin 0.4 mg/dL (0.2-1.3); Total Protein 5.9 g/dL (6.3-8.2)
[2016-07-07 11:31] LABS: Creatinine,Urine Random 115.7 mg/dL
== END | disposition home or self-care (01) ==
LOC: LABWHC1 10:18
PROVIDERS: ATTEND Physician Assistant Medical
DX: Z48.22 Encounter for aftercare following kidney transplant (principal); Z94.0 Kidney transplant status
CPT/HCPCS: 36415; 80053; 80197; 82465; 82570; 84100; 84156; 85025

== ENCOUNTER → 2016-08-06 | Outpatient (CLI) | payer MEDICARE, OTHER ==
[2016-08-06 10:16] LABS: Basophils # (A) 0.1 k/uL (0-0.2); Basophils % (A) 1 %; CH 31.6; Eosinophils # (A) 0.3 k/uL (0-0.7); Eosinophils % (A) 2 %; HCT 43.4 % (39.0-53.0); HDW 2.86; HGB 14.5 gm/dL (13.0-17.5); Luc # (Auto) 0.31; Luc % (Auto) 2; Lymphocytes # (A) 4.2 k/uL (1.0-4.8); Lymphocytes % (A) 31 %; MCH 30.3 pg (25.0-35.0); MCHC 33.4 g/dL (31.0-37.0); MCV 90.8 fL (80.0-100.0); Mean Platelet Volume 8.7; Monocytes # (A) 0.7 k/uL (0-1.0); Monocytes % (A) 5 %; Neutrophils # (A) 8.2 k/uL (1.3-7.7); Neutrophils % (A) 60 %; RBC 4.78 m/uL (4.30-5.90); RDW 13.7 % (11.5-15.5); WBC 13.8 k/uL (3.8-10.6)
[2016-08-06 10:32] LABS: Calcium 9.4 mg/dL (8.4-10.2); Potassium 3.7 mmol/L (3.5-5.1); Total Bilirubin 0.6 mg/dL (0.2-1.3); Total Protein 6.9 g/dL (6.3-8.2)
[2016-08-06 11:19] LABS: Creatinine,Urine Random 74.7 mg/dL
[2016-08-06 13:35] LABS: Hemoglobin A1C 10.1 % (4.2-6.1)
== END | disposition home or self-care (01) ==
LOC: LABWHC1 09:25
PROVIDERS: ATTEND Internal Medicine Nephrology
DX: I25.9 Chronic ischemic heart disease, unspecified (principal); E55.9 Vitamin D deficiency, unspecified; E11.9 Type 2 diabetes mellitus without complications; N25.81 Secondary hyperparathyroidism of renal origin; N18.3 Chronic kidney disease, stage 3 (moderate); Z94.0 Kidney transplant status
CPT/HCPCS: 36415; 80053; 80197; 82306; 82465; 82570; 83036; 83970; 84100; 84156; 85025

== ENCOUNTER 2016-11-14 22:15 | Emergency (ER) | payer MEDICARE, OTHER ==
[2016-11-14 22:43] VITALS: BP 132/87; PULSE 81; RESP 20; TEMP 98.1
[2016-11-14] MEDS ORDERED: MYCOPHENOLATE MOFETIL 500 MG TAB PO STA (23:11)
[2016-11-14] MEDS ORDERED: MYCOPHENOLATE MOFETIL 250 MG CAP PO STA (23:11)
[2016-11-14] MEDS ORDERED: TACROLIMUS 1 MG CAP PO STA (23:11)
--- NOTE | 2016-11-14 23:22 | ED ---
General Adult HPI - General Chief complaint: Recheck/Abnormal Lab/Rx Stated complaint: Med Refill Time Seen by Provider: 11/14/16 22:53 Source: patient Mode of arrival: ambulatory Limitations: no limitations - History of Present Illness Initial comments: 61-year-old male patient with past medical history significant for renal transplant presents today requesting medication refill. Patient states that he missed his medication delivery on Wednesday, states they will not be redelivered until Wednesday. He states that he has been out of his antirejection medications for the last 2 days. He denies any physical symptoms or concerns. States that he would just like to have this medication. He is requesting enough pills to get him through until Wednesday. He denies any back pain, abdominal pain, nausea, vomiting, fever, or chills. Denies any change in urinary or bowel habits. - Related Data Home Medications Medication Instructions Recorded Confirmed Lisinopril [Prinivil] 10 mg PO DAILY 03/26/14 11/14/16 Tacrolimus [Prograf] 3 mg PO QA 03/26/14 11/14/16 Omeprazole 20 mg PO DAILY 11/27/15 11/14/16 Amoxicillin 500 mg PO TID 06/23/16 11/14/16 Aspirin [Adult Low Dose Aspirin EC] 81 mg PO DAILY 06/23/16 11/14/16 Atorvastatin [Lipitor] 20 mg PO HS 06/23/16 11/14/16 Calcitriol [Rocaltrol] 0.25 mcg PO DAILY 06/23/16 11/14/16 Clopidogrel [Plavix] 75 mg PO DAILY 06/23/16 11/14/16 Latanoprost Ophth [Xalatan 0.005%] 1 drops BOTH EYES HS 06/23/16 11/14/16 Multivitamins, Thera [Multivitamin 1 tab PO DAILY 06/23/16 11/14/16 (formulary)] Sodium Bicarbonate Tab 650 mg PO BID 06/23/16 11/14/16 Tacrolimus [Prograf] 2 mg PO HS 06/23/16 11/14/16 amLODIPine [Norvasc] 10 mg PO DAILY 06/23/16 11/14/16 Mycophenolate Mofetil [Cellcept] 500 mg PO HS 11/14/16 11/14/16 Mycophenolate Mofetil [Cellcept] 750 mg PO DAILY 11/14/16 11/14/16 Previous Rx's Medication Instructions Recorded Albuterol Inhaler [Ventolin Hfa 1 - 2 puff INHALATION Q6HR PRN #1 06/24/16 Inhaler] inhaler Budesonide-Formot 160-4.5 Mcg 2 puff INHALATION BID #1 inhaler 06/24/16 [Symbicort 160-4.5 Mcg Inhaler] Tiotropium [place] [Spiriva] 1 cap INHALATION DAILY #1 device 06/24/16 predniSONE 10 mg PO DAILY #30 tab 06/24/16 INSULIN LISPRO (humaLOG) [humaLOG 1 injection SQ DIRECTED #10 ml 06/25/16 (formulary)] INSULIN LISPRO (humaLOG) [humaLOG 15 unit SQ AC-TID #1 vial 06/25/16 (formulary)] Insulin Glargine [Lantus] 45 unit SQ HS #1 vial 06/25/16 Magnesium Oxide [Mag-Ox] 400 mg PO DAILY #30 tablet 06/25/16 Mycophenolate Mofetil [Cellcept] 250 mg PO DIRECTED #10 capsule 11/14/16 Tacrolimus [Prograf] 2 mg PO HS #4 capsule 11/14/16 Tacrolimus [Prograf] 3 mg PO QAM #6 capsule 11/14/16 Allergies Allergy/AdvReac Type Severity Reaction Status Date / Time No Known Allergies Allergy Verified 06/23/16 14:50 Review of Systems ROS Statement: Those systems with pertinent positive or pertinent negative responses have been documented in the HPI. ROS Other: All systems not noted in ROS Statement are negative. Past Medical History Past Medical History: Chest Pain / Angina, COPD, Diabetes Mellitus, Hyperlipidemia, Hypertension Additional Past Medical History / Comment(s): Hepatitis C, History of Any Multi-Drug Resistant Organisms: None Reported Additional Past Surgical History / Comment(s): Kidney transplant in past. had bx of transplanted kidney at [facility] in may 2016-was started on steriod therapy. Past Anesthesia/Blood Transfusion Reactions: No Reported Reaction Past Psychological History: No Psychological Hx Reported Smoking Status: Current every day smoker Past Alcohol Use History: None Reported Past Drug Use History: None Reported - Past Family History Father Family Medical History: Cancer Mother Family Medical History: No Reported History General Exam Limitations: no limitations General appearance: alert, in no apparent distress, other (This is a well- developed, well-nourished adult male patient in no acute distress.) Respiratory exam: Present: normal lung sounds bilaterally. Absent: respiratory distress, wheezes, rales, rhonchi, stridor Cardiovascular Exam: Present: regular rate, normal rhythm, normal heart sounds. Absent: systolic murmur, diastolic murmur, rubs, gallop, clicks GI/Abdominal exam: Present: soft, normal bowel sounds. Absent: distended, tenderness, guarding, rebound, rigid Back exam: Present: normal inspection. Absent: CVA tenderness (R), CVA tenderness (L) Neurological exam: Present: alert, oriented X3, CN II-XII intact Psychiatric exam: Present: normal affect, normal mood Skin exam: Present: warm, dry, intact, normal color. Absent: rash Course Vital Signs 11/14/16 22:39 Temperature 98.1 F Pulse Rate 81 Respiratory 20 Rate Blood Pressure 132/87 O2 Sat by Pulse 99 Oximetry Medical Decision Making - Medical Decision Making 61-year-old male patient presented requesting medication refill as he missed his home delivery on Wednesday. Patient will be given a dose of his medications including tacrolimus and mycophenolate here in the department. He will be given a prescription for Wednesday and Wednesday's dosages. He is instructed to return here immediately if his delivery doesn't come in on Wednesday. He is instructed to return here immediately for any new, worsening, or concerning symptoms. Patient verbalizes understanding and agrees with this plan. Disposition Clinical Impression: Medication refill, History of kidney transplant Disposition: HOME SELF-CARE Condition: Good Instructions: Medicine Refill (ED) Additional Instructions: Take medications as directed. Follow up with primary care provider in 1-2 days for a recheck. Return immediately to emergency for any new, worsening, or concerning symptoms. Prescriptions: Mycophenolate Mofetil [Cellcept] 250 mg PO DIRECTED #10 capsule Tacrolimus [Prograf] 2 mg PO HS #4 capsule Tacrolimus [Prograf] 3 mg PO QAM #6 capsule Referrals: Trav Velasquez MD [Primary Care Provider] - 1-2 days Time of Disposition: 23:32
== END 2016-11-14 23:50 | disposition home or self-care (01) ==
LOC: EC 22:15
DX: Z76.0 Encounter for issue of repeat prescription (principal); Z94.0 Kidney transplant status; E78.5 Hyperlipidemia, unspecified; I10 Essential (primary) hypertension; F17.200 Nicotine dependence, unspecified, uncomplicated; Z79.02 Long term (current) use of antithrombotics/antiplatelets; Z79.82 Long term (current) use of aspirin; Z79.899 Other long term (current) drug therapy
CPT/HCPCS: 99281; J7517 ×2; J7507

== ENCOUNTER 2016-12-13 12:08 | Emergency (ER) | payer MEDICARE, OTHER ==
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
[2016-12-13 15:12] VITALS: BP 160/88; PULSE 70; RESP 18; TEMP 98
== END 2016-12-13 15:12 | disposition home or self-care (01) ==
LOC: EC 12:08
DX: S00.83XA Contusion of other part of head, initial encounter (principal); S00.11XA Contusion of right eyelid and periocular area, initial encounter; E78.5 Hyperlipidemia, unspecified; I10 Essential (primary) hypertension; F17.200 Nicotine dependence, unspecified, uncomplicated; Z79.02 Long term (current) use of antithrombotics/antiplatelets; Z79.82 Long term (current) use of aspirin; Z79.899 Other long term (current) drug therapy; Y04.2XXA Assault by strike against or bumped into by another person, initial encounter
CPT/HCPCS: 70450; 70486; 72125; 99284

== ENCOUNTER → 2016-12-29 | Outpatient (CLI) | payer MEDICARE, OTHER ==
[2016-12-29 15:41] LABS: Basophils # (A) 0.1 k/uL (0-0.2); Basophils % (A) 1 %; CH 30.4; CHCM 32.3; Eosinophils # (A) 0.3 k/uL (0-0.7); Eosinophils % (A) 3 %; HCT 46.2 % (39.0-53.0); HDW 2.56; HGB 14.7 gm/dL (13.0-17.5); Luc # (Auto) 0.18; Luc % (Auto) 2; Lymphocytes # (A) 2.6 k/uL (1.0-4.8); Lymphocytes % (A) 31 %; MCH 30.3 pg (25.0-35.0); MCHC 31.9 g/dL (31.0-37.0); MCV 94.8 fL (80.0-100.0); Mean Platelet Volume 9.6; Monocytes # (A) 0.6 k/uL (0-1.0); Monocytes % (A) 7 %; Neutrophils # (A) 4.7 k/uL (1.3-7.7); Neutrophils % (A) 56 %; RBC 4.87 m/uL (4.30-5.90); RDW 15.4 % (11.5-15.5); WBC 8.4 k/uL (3.8-10.6); WBC (Perox) 8.23
[2016-12-29 15:48] LABS: Calcium 8.7 mg/dL (8.4-10.2); Potassium 4.1 mmol/L (3.5-5.1)
[2016-12-30 15:26] LABS: Hepatits C Virus RNA, Quant <12 IU/mL (<12); LOG HCV IU/mL <1.08 (<1.08)
== END | disposition home or self-care (01) ==
LOC: LABWHC1 14:39
PROVIDERS: ATTEND Internal Medicine Infectious Disease
DX: B18.2 Chronic viral hepatitis C (principal)
CPT/HCPCS: 36415; 80048; 85025; 87522

== ENCOUNTER 2017-01-23 09:51 | Emergency (ER) | payer MEDICARE, OTHER ==
--- NOTE | 2017-01-23 10:27 | ED ---
General Adult HPI - General Chief complaint: Extremity Problem,Nontraumatic Stated complaint: right hip pain Time Seen by Provider: 01/23/17 10:18 Source: patient, RN notes reviewed Mode of arrival: ambulatory Limitations: no limitations - History of Present Illness Initial comments: Patient is a 61-year-old male who presents emergency room today with chief complaint of pain to the right hip. He does admit that this is sort of a month ago. Denies any injury or trauma. States worse with certain movements. States he takes aspirin. He notes that he feels pain sometimes radiate down the leg with certain movements. He denies any other complaints or symptoms. Patient denies any recent fever, chills, shortness of breath, chest pain, back pain, abdominal pain, nausea or vomiting, dysuria or hematuria, constipation or diarrhea, headaches or visual changes, or any other complaints. - Related Data Home Medications Medication Instructions Recorded Confirmed Lisinopril [Prinivil] 10 mg PO DAILY 03/26/14 11/14/16 Tacrolimus [Prograf] 3 mg PO QA 03/26/14 11/14/16 Omeprazole 20 mg PO DAILY 11/27/15 11/14/16 Amoxicillin 500 mg PO TID 06/23/16 11/14/16 Aspirin [Adult Low Dose Aspirin EC] 81 mg PO DAILY 06/23/16 11/14/16 Atorvastatin [Lipitor] 20 mg PO 06/23/16 11/14/16 Calcitriol [Rocaltrol] 0.25 mcg PO DAILY 06/23/16 11/14/16 Clopidogrel [Plavix] 75 mg PO DAILY 06/23/16 11/14/16 Latanoprost Ophth [Xalatan 0.005%] 1 drops BOTH EYES 06/23/16 11/14/16 Multivitamins, Thera [Multivitamin 1 tab PO DAILY 06/23/16 11/14/16 (formulary)] Sodium Bicarbonate Tab 650 mg PO BID 06/23/16 11/14/16 Tacrolimus [Prograf] 2 mg PO 06/23/16 11/14/16 amLODIPine [Norvasc] 10 mg PO DAILY 06/23/16 11/14/16 Mycophenolate Mofetil [Cellcept] 500 mg PO HS 11/14/16 11/14/16 Mycophenolate Mofetil [Cellcept] 750 mg PO DAILY 11/14/16 11/14/16 Previous Rx's Medication Instructions Recorded Albuterol Inhaler [Ventolin Hfa 1 - 2 puff INHALATION Q6HR PRN #1 06/24/16 Inhaler] inhaler Budesonide-Formot 160-4.5 Mcg 2 puff INHALATION BID #1 inhaler 06/24/16 [Symbicort 160-4.5 Mcg Inhaler] Tiotropium [place] [Spiriva] 1 cap INHALATION DAILY #1 device 06/24/16 predniSONE 10 mg PO DAILY #30 tab 06/24/16 INSULIN LISPRO (humaLOG) [humaLOG] 1 injection SQ DIRECTED #10 ml 06/25/16 INSULIN LISPRO (humaLOG) [humaLOG] 15 unit SQ AC-TID #1 vial 06/25/16 Insulin Glargine [Lantus] 45 unit SQ HS #1 vial 06/25/16 Magnesium Oxide [Mag-Ox] 400 mg PO DAILY #30 tablet 06/25/16 Mycophenolate Mofetil [Cellcept] 250 mg PO DIRECTED #10 capsule 11/14/16 Tacrolimus [Prograf] 2 mg PO HS #4 capsule 11/14/16 Tacrolimus [Prograf] 3 mg PO QAM #6 capsule 11/14/16 Hydrocodone/Acetaminophen [[place] 1 each PO Q6HR PRN #15 tab 01/23/17 5-325] Allergies Allergy/AdvReac Type Severity Reaction Status Date / Time No Known Allergies Allergy Verified 01/23/17 10:00 Review of Systems ROS Statement: Those systems with pertinent positive or pertinent negative responses have been documented in the HPI. ROS Other: All systems not noted in ROS Statement are negative. Past Medical History Past Medical History: Chest Pain / Angina, COPD, Diabetes Mellitus, Hyperlipidemia, Hypertension Additional Past Medical History / Comment(s): Hepatitis C, History of Any Multi-Drug Resistant Organisms: None Reported Additional Past Surgical History / Comment(s): Kidney transplant in past. had bx of transplanted kidney at [facility] in may 2016-was started on steriod therapy. Past Anesthesia/Blood Transfusion Reactions: No Reported Reaction Past Psychological History: No Psychological Hx Reported Smoking Status: Current every day smoker Past Alcohol Use History: None Reported Past Drug Use History: None Reported - Past Family History Father Family Medical History: Cancer Mother Family Medical History: No Reported History General Exam - General Exam Comments Initial Comments: General: The patient is awake and alert, in no distress, and does not appear acutely ill. Eye: Pupils are equal, round and reactive to light, extra-ocular movements are intact. No nystagmus. There is normal conjunctiva bilaterally. No signs of icterus. Ears, nose, mouth and throat: There are moist mucous membranes and no oral lesions. Neck: The neck is supple, there is no tenderness or JVD. Cardiovascular: There is a regular rate and rhythm. No murmur, rub or gallop is appreciated. Respiratory: Lungs are clear to auscultation, respirations are non-labored, breath sounds are equal. No wheezes, stridor, rales, or rhonchi. Gastrointestinal: Soft, non-distended, non-tender abdomen without masses or organomegaly noted. There is no rebound or guarding present. No CVA tenderness. Bowel sounds are unremarkable. Musculoskeletal: Normal ROM. Patient does have mild tenderness to the right hip on exam. No tenderness to the thoracic or lumbar spine. No step-offs forms appreciated on exam. Strength 5/5. Sensation intact. Pulses equal bilaterally 2+. Neurological: A&O x 3. CN II-XII intact, There are no obvious motor or sensory deficits. Coordination appears grossly intact. Speech is normal. Skin: Skin is warm and dry and no rashes or lesions are noted. Psychiatric: Cooperative, appropriate mood & affect, normal judgment. Limitations: no limitations Course Vital Signs 01/23/17 09:58 Temperature 97.5 F L Pulse Rate 81 Respiratory 18 Rate Blood Pressure 193/97 O2 Sat by Pulse 98 Oximetry Medical Decision Making - Medical Decision Making The patient's x-rays have been reviewed and showed degenerative changes of L5- S1. No signs of acute fracture or dislocations. Results were discussed with the patient.. The most likely pain coming from his lower back radiating down the leg. We'll give patient short prescription of pain medication he was advised that may cause constipation and drowsiness. Advised patient to perhaps only use it at night before bedtime. Advised him to follow-up family doctor over the next few days or orthopedics. Advised return to emergency room if any symptoms increase or worsen or for any other concerns. Patient states understanding and is in agreement. Disposition Clinical Impression: Lumbar radiculopathy, acute Disposition: HOME SELF-CARE Condition: Good Instructions: Lumbar Radiculopathy (ED) Additional Instructions: Please use medication as discussed. Please follow-up with orthopedics/family doctor in the next 2 days of symptoms have not improved. Please return to emergency room if the symptoms increase or worsen or for any other concerns. Prescriptions: Hydrocodone/Acetaminophen [[place] 5-325] 1 each PO Q6HR PRN #15 tab PRN Reason: Pain Referrals: Trav Velasquez MD [Primary Care Provider] - 1-2 days Leopoldo Alejandro MD [STAFF PHYSICIAN] - 1-2 days Time of Disposition: 11:17
--- NOTE | 2017-01-23 10:48 | XR ---
EXAMINATION TYPE: XR Hip RT and AP Pelvis , ONE VIEW DATE OF EXAM ORDERED: 01/23/2017 HISTORY: Pain. COMPARISON: None. FINDINGS: Osseous structures about the pelvis are normal. No fracture or dislocation is seen. Hip kacie ints are reasonably well-maintained. There are phleboliths in the pelvis as well as surgical clips. IMPRESSION: NO ACUTE OSSEOUS LESION.
--- NOTE | 2017-01-23 10:49 | XR ---
EXAMINATION TYPE: XR lumbar spine 2 or 3V , 3 VIEWS DATE OF EXAM ORDERED: 01/23/2017 HISTORY: Pain. COMPARISON: Previous study dated 11/27/2015. FINDINGS: There is mild disc space loss at L5-S1. This has progressed slightly from previous. Vertebral body height and alignment are maintained. There is no spondylolisthesis or spondylolysis. T he facets appear unremarkable. The pedicles are intact. IMPRESSION: DEGENERATIVE DISC DISEASE, L5-S1.
[2017-01-23 11:43] VITALS: BP 197/103; PULSE 61; RESP 16; TEMP 97.8
== END 2017-01-23 11:54 | disposition home or self-care (01) ==
LOC: EC 09:51
DX: M54.16 Radiculopathy, lumbar region (principal); I10 Essential (primary) hypertension; E78.5 Hyperlipidemia, unspecified; F17.200 Nicotine dependence, unspecified, uncomplicated; Z79.82 Long term (current) use of aspirin; Z79.01 Long term (current) use of anticoagulants; Z79.899 Other long term (current) drug therapy
CPT/HCPCS: 72100; 73502; 99283

== ENCOUNTER → 2017-04-08 | Outpatient (CLI) | payer MEDICARE, OTHER ==
[2017-04-08 16:58] LABS: Basophils % (A) 0 %; Eosinophils # (A) 0.1 k/uL (0-0.7); Eosinophils % (A) 1 %; HCT 41.3 % (39.0-53.0); HGB 13.6 gm/dL (13.0-17.5); Lymphocytes # (A) 1.4 k/uL (1.0-4.8); Lymphocytes % (A) 21 %; MCH 29.3 pg (25.0-35.0); MCHC 32.9 g/dL (31.0-37.0); MCV 89.1 fL (80.0-100.0); Mean Platelet Volume 8.8; Monocytes # (A) 0.3 k/uL (0-1.0); Monocytes % (A) 5 %; Neutrophils # (A) 4.8 k/uL (1.3-7.7); Neutrophils % (A) 72 %; Platelet Count 137 k/uL (150-450); RBC 4.63 m/uL (4.30-5.90); RDW 13.1 % (11.5-15.5); WBC 6.7 k/uL (3.8-10.6)
[2017-04-08 17:17] LABS: Albumin 2.5 g/dL (3.5-5.0); Calcium 8.7 mg/dL (8.4-10.2); Potassium 3.2 mmol/L (3.5-5.1); Total Bilirubin 0.3 mg/dL (0.2-1.3)
[2017-04-09 00:54] LABS: Vitamin D 25 Hydroxy 25.4 ng/mL (30.0-100.0)
[2017-04-09 01:33] LABS: Hemoglobin A1C 8.5 % (4.0-6.0)
== END | disposition home or self-care (01) ==
LOC: LABWHC1 16:32
PROVIDERS: ATTEND Family Medicine
DX: I10 Essential (primary) hypertension (principal); E11.65 Type 2 diabetes mellitus with hyperglycemia
CPT/HCPCS: 36415; 80053; 82306; 82607; 83036; 85025

== ENCOUNTER 2017-04-12 12:43 | Emergency (ER) | payer MEDICARE, OTHER ==
[2017-04-12 13:06] VITALS: RESP 18
[2017-04-12 13:28] LABS: Basophils % (A) 0 %; Eosinophils # (A) 0.1 k/uL (0-0.7); Eosinophils % (A) 1 %; HCT 42.1 % (39.0-53.0); HGB 12.9 gm/dL (13.0-17.5); Lymphocytes # (A) 1.1 k/uL (1.0-4.8); Lymphocytes % (A) 15 %; MCH 28.3 pg (25.0-35.0); MCHC 30.8 g/dL (31.0-37.0); MCV 91.9 fL (80.0-100.0); Mean Platelet Volume 8.8; Monocytes # (A) 0.3 k/uL (0-1.0); Monocytes % (A) 4 %; Neutrophils # (A) 5.8 k/uL (1.3-7.7); Neutrophils % (A) 79 %; Platelet Count 133 k/uL (150-450); RBC 4.57 m/uL (4.30-5.90); RDW 13.4 % (11.5-15.5); WBC 7.3 k/uL (3.8-10.6)
[2017-04-12 13:32] LABS: Albumin 2.4 g/dL (3.5-5.0); Calcium 8.3 mg/dL (8.4-10.2); Potassium 3.6 mmol/L (3.5-5.1); Total Bilirubin 0.3 mg/dL (0.2-1.3); Total Protein 4.8 g/dL (6.3-8.2)
[2017-04-12] MEDS ORDERED: SODIUM CHLORIDE 0.9% 1,000 ML IV STA (13:54)
--- NOTE | 2017-04-12 13:56 | ED ---
General Adult HPI - General Source: patient, RN notes reviewed, old records reviewed Mode of arrival: ambulatory Limitations: no limitations <Lloyd Lindsey - Last Filed: 04/12/17 14:12> <Peter Alejo - Last Filed: 04/18/17 07:19> - General Chief complaint: Recheck/Abnormal Lab/Rx Stated complaint: Kidney Failure-sent by Time Seen by Provider: 04/12/17 13:45 - History of Present Illness Initial comments: Patient is a 62-year-old male with a significant past medical history for hypertension, COPD, diabetes, hepatitis C, kidney transplant, presenting today with a chief complaint of abnormal labs. He states that he had lab work obtained through the family doctor's office just a few days ago. States he was called and told to come here in the emergency room today due to some poor kidney function. Patient states that he did have a transplant in 2017 at [facility]. Patient does admit that he's noticed some swelling down to his feet over the last several months he denies any other complaints or symptoms. Patient denies any recent fever, chills, shortness of breath, chest pain, back pain, abdominal pain, nausea or vomiting, numbness or tingling, dysuria or hematuria, constipation or diarrhea, headaches or visual changes, or any other complaints. (Lloyd Lindsey) - Related Data Home Medications Medication Instructions Recorded Confirmed Atorvastatin [Lipitor] 20 mg PO HS 06/23/16 04/12/17 amLODIPine [Norvasc] 10 mg PO DAILY 06/23/16 04/12/17 Carvedilol [Coreg] 3.125 mg PO BID 02/25/17 04/12/17 Furosemide [Lasix] 20 mg PO DAILY PRN 02/25/17 04/12/17 Insulin NPH Human Isophane 10 - 13 unit SQ DAILY 02/25/17 04/12/17 [humuLIN N] Magnesium Oxide [Mag-Ox] 400 mg PO BID 02/25/17 04/12/17 Mycophenolate Mofetil [Cellcept] 750 mg PO BID 02/25/17 04/12/17 Repaglinide [Prandin] 0.5 mg PO AC-SUPPER 02/25/17 04/12/17 Tacrolimus [Prograf] 2 mg PO BID 02/25/17 04/12/17 Allergies Allergy/AdvReac Type Severity Reaction Status Date / Time No Known Allergies Allergy Verified 04/12/17 13:39 Review of Systems ROS Other: All systems not noted in ROS Statement are negative. <CésarLloyd - Last Filed: 04/12/17 14:12> ROS Other: All systems not noted in ROS Statement are negative. <Peter Alejo - Last Filed: 04/18/17 07:19> ROS Statement: Those systems with pertinent positive or pertinent negative responses have been documented in the HPI. Past Medical History Past Medical History: Chest Pain / Angina, COPD, Diabetes Mellitus, Hyperlipidemia, Hypertension Additional Past Medical History / Comment(s): Hepatitis C, History of Any Multi-Drug Resistant Organisms: None Reported Additional Past Surgical History / Comment(s): Kidney transplant in past. had bx of transplanted kidney at [facility] in may 2016-was started on steriod therapy. Past Anesthesia/Blood Transfusion Reactions: No Reported Reaction Past Psychological History: No Psychological Hx Reported Smoking Status: Current every day smoker Past Alcohol Use History: None Reported Past Drug Use History: None Reported - Past Family History Father Family Medical History: Cancer Mother Family Medical History: No Reported History <LindseyLloyd - Last Filed: 04/12/17 14:12> General Exam Limitations: no limitations <CésarLloyd - Last Filed: 04/12/17 14:12> <Peter Alejo - Last Filed: 04/18/17 07:19> - General Exam Comments Initial Comments: General: The patient is awake and alert, in no distress, and does not appear acutely ill. Eye: Pupils are equal, round and reactive to light, extra-ocular movements are intact. No nystagmus. There is normal conjunctiva bilaterally. No signs of icterus. Ears, nose, mouth and throat: There are moist mucous membranes and no oral lesions. Neck: The neck is supple, there is no tenderness or JVD. Cardiovascular: There is a regular rate and rhythm. No murmur, rub or gallop is appreciated. Respiratory: Lungs are clear to auscultation, respirations are non-labored, breath sounds are equal. No wheezes, stridor, rales, or rhonchi. Musculoskeletal: Normal ROM, no tenderness. Strength 5/5. Sensation intact. Pulses equal bilaterally 2+. Neurological: A&O x 3. CN II-XII intact, There are no obvious motor or sensory deficits. Coordination appears grossly intact. Speech is normal. Skin: Skin is warm and dry and no rashes or lesions are noted. Psychiatric: Cooperative, appropriate mood & affect, normal judgment. (Llody Lindsey) Course <Lloyd Lindsey - Last Filed: 04/12/17 14:12> <Peter Alejo - Last Filed: 04/18/17 07:19> Vital Signs 04/12/17 04/12/17 13:03 15:10 Temperature 98.8 F 98.5 F Pulse Rate 92 71 Respiratory 18 18 Rate Blood Pressure 145/82 128/80 O2 Sat by Pulse 99 98 Oximetry - Reevaluation(s) Reevaluation #1: 04/12/17 14:48 I did personally to a [id number] evaluation patient did discuss the findings with him. Patient will be transferred to [facility]. This is where his transplant was performed he does state that in having decline of his renal function for the past 6 months or so. He did have edema to his lower extremities. I do agree with the assessment and plan. (Peter Alejo) Medical Decision Making - Lab Data Result diagrams: 04/12/17 13:12 04/12/17 13:12 <Lloyd Lindsey - Last Filed: 04/12/17 14:12> - Lab Data Result diagrams: 04/12/17 13:12 04/12/17 13:12 <Peter Alejo - Last Filed: 04/18/17 07:19> - Medical Decision Making Patient's labs been reviewed. Patient's. Creatinine elevated here in the emergency room. Patient does admit to kidney transplant performed at [facility]. Case was discussed with Dr. Velez at [facility] who will accept transfer of patient. (Lloyd Lindsey) - Lab Data Lab Results 04/12/17 04/12/17 Range/Units 13:12 13:12 WBC 7.3 (3.8-10.6) k/uL RBC 4.57 (4.30-5.90) m/uL Hgb 12.9 L (13.0-17.5) gm/dL Hct 42.1 (39.0-53.0) % MCV 91.9 (80.0-100.0) fL MCH 28.3 (25.0-35.0) pg MCHC 30.8 L (31.0-37.0) g/dL RDW 13.4 (11.5-15.5) % Plt Count 133 L (150-450) k/uL Neutrophils % 79 % Lymphocytes % 15 % Monocytes % 4 % Eosinophils % 1 % Basophils % 0 % Neutrophils # 5.8 (1.3-7.7) k/uL Lymphocytes # 1.1 (1.0-4.8) k/uL Monocytes # 0.3 (0-1.0) k/uL Eosinophils # 0.1 (0-0.7) k/uL Basophils # 0.0 (0-0.2) k/uL Sodium 142 (137-145) mmol/L Potassium 3.6 (3.5-5.1) mmol/L Chloride 106 (98-107) mmol/L Carbon Dioxide 30 (22-30) mmol/L Anion Gap 6 mmol/L BUN 48 H (9-20) mg/dL Creatinine 5.70 H* (0.66-1.25) mg/dL Est GFR (MDRD) Af Amer 12 (>60 ml/min/1.73 sqM) Est GFR (MDRD) Non-Af 10 (>60 ml/min/1.73 sqM) Glucose 218 H (74-99) mg/dL Calcium 8.3 L (8.4-10.2) mg/dL Total Bilirubin 0.3 (0.2-1.3) mg/dL AST 27 (17-59) U/L ALT 26 (21-72) U/L Alkaline Phosphatase 84 (38-126) U/L Total Protein 4.8 L (6.3-8.2) g/dL Albumin 2.4 L (3.5-5.0) g/dL Disposition Time of Disposition: 14:14 - Out of Hospital Transfer - Req. Specs Out of Hospital Transfer - Requested Specifics: Other Emergency Center ( Transfer to [facility] by EMS) <Lloyd Lindsey - Last Filed: 04/12/17 14:12> <Peter Alejo - Last Filed: 04/18/17 07:19> Clinical Impression: Acute kidney failure Disposition: OTHER INSTITUTION NOT DEFINED Condition: Stable Referrals: Trav Velasquez MD [Primary Care Provider] - 1-2 days
[2017-04-12 15:11] VITALS: BP 128/80; PULSE 71; TEMP 98.5
== END 2017-04-12 15:11 | disposition short-term general hospital (02) ==
LOC: EC 12:43
DX: N17.9 Acute kidney failure, unspecified (principal); E11.9 Type 2 diabetes mellitus without complications; E78.5 Hyperlipidemia, unspecified; I10 Essential (primary) hypertension; F17.200 Nicotine dependence, unspecified, uncomplicated; Z94.0 Kidney transplant status; Z79.4 Long term (current) use of insulin; Z86.19 Personal history of other infectious and parasitic diseases; Z79.899 Other long term (current) drug therapy
CPT/HCPCS: 36415; 80053; 85025; 96360; 99284

== ENCOUNTER → 2017-05-07 | Outpatient (CLI) | payer MEDICARE, OTHER ==
[2017-05-07 17:46] LABS: Potassium 3.7 mmol/L (3.5-5.1)
== END | disposition home or self-care (01) ==
LOC: LABWHC1 16:14
PROVIDERS: ATTEND Nurse Practitioner Family
DX: Z48.816 Encounter for surgical aftercare following surgery on the genitourinary system (principal); Z94.0 Kidney transplant status
CPT/HCPCS: 36415; 80048

== ENCOUNTER 2017-05-17 17:02 | Inpatient (IN) | payer MEDICARE, OTHER ==
[2017-05-17] MEDS ORDERED: methylPREDNISolone SOD SUCCI 125 MG/2 ML VIAL IV STA (17:47)
[2017-05-17] MEDS ORDERED: IPRATROPIUM 0.5 MG/2.5 ML NEBU INHALATION STA (17:47)
[2017-05-17] MEDS ORDERED: ALBUTEROL NEBULIZED 2.5 MG/3 ML INHALATION STA (17:47)
[2017-05-17] MEDS ORDERED: LABETALOL 5 MG/ML VIAL MDV IVP STA ×2 (17:48→19:05)
--- NOTE | 2017-05-17 17:51 | ED ---
General Adult HPI <Peter Liu - Last Filed: 05/17/17 19:07> - General Source: patient, EMS, RN notes reviewed Mode of arrival: EMS Limitations: no limitations <Gin Frias - Last Filed: 05/17/17 19:14> - General Chief complaint: Shortness of Breath Stated complaint: VAIBHAV Time Seen by Provider: 05/17/17 17:38 - History of Present Illness Initial comments: 62-year-old male presents for cough and shortness of breath. Patient has had these symptoms for the past 3 days. He gets short of breath just trying to walk across the room. EMS was at the scene and they did not been eating improve after breathing treatment. He denies any fevers. He does chronically of swollen legs. He thinks he probably has fluid on the lungs. He denies any nausea or vomiting with this. Patient states otherwise he is feeling well. No chest pain. He does not normally wear oxygen at home. Patient denies any recent fever, chills, chest pain, back pain, abdominal pain, nausea vomiting, numbness or tingling, dysuria or hematuria, constipation or diarrhea, headaches or visual changes, or any other current symptoms. (Gin Frias) - Related Data Home Medications Medication Instructions Recorded Confirmed Atorvastatin [Lipitor] 20 mg PO HS 06/23/16 05/17/17 amLODIPine [Norvasc] 10 mg PO DAILY 06/23/16 05/17/17 Carvedilol [Coreg] 3.125 mg PO BID 02/25/17 05/17/17 Mycophenolate Mofetil [Cellcept] 750 mg PO BID 02/25/17 05/17/17 Repaglinide [Prandin] 0.5 mg PO AC-SUPPER 02/25/17 05/17/17 Tacrolimus [Prograf] 2 mg PO BID 02/25/17 05/17/17 Beet Root 500mg 1 tab PO DAILY 05/17/17 05/17/17 Calcitriol 0.25 mcg PO DAILY 05/17/17 05/17/17 Carvedilol [Coreg] 25 mg PO BID 05/17/17 05/17/17 Omeprazole [PriLOSEC] 20 mg PO DAILY 05/17/17 05/17/17 metFORMIN HCL [Glucophage] 500 mg PO BID 05/17/17 05/17/17 Allergies Allergy/AdvReac Type Severity Reaction Status Date / Time No Known Allergies Allergy Verified 05/17/17 17:40 Review of Systems ROS Other: All systems not noted in ROS Statement are negative. <Peter Liu - Last Filed: 05/17/17 19:07> ROS Other: All systems not noted in ROS Statement are negative. <Gin Frias - Last Filed: 05/17/17 19:14> ROS Statement: Those systems with pertinent positive or pertinent negative responses have been documented in the HPI. Past Medical History Past Medical History: Chest Pain / Angina, COPD, Diabetes Mellitus, Hyperlipidemia, Hypertension Additional Past Medical History / Comment(s): Hepatitis C, History of Any Multi-Drug Resistant Organisms: None Reported Additional Past Surgical History / Comment(s): Kidney transplant in past. had bx of transplanted kidney at [facility] in may 2016-was started on steriod therapy. Past Anesthesia/Blood Transfusion Reactions: No Reported Reaction Past Psychological History: No Psychological Hx Reported Smoking Status: Former smoker Past Alcohol Use History: None Reported Past Drug Use History: None Reported - Past Family History Father Family Medical History: Cancer Mother Family Medical History: No Reported History <Gin Frias - Last Filed: 05/17/17 19:14> General Exam <Peter Liu - Last Filed: 05/17/17 19:07> Limitations: no limitations <Gin Frias - Last Filed: 05/17/17 19:14> - General Exam Comments Initial Comments: General: The patient is awake and alert, in no distress, and does not appear acutely ill. Eye: Pupils are equal, round and reactive to light, extra-ocular movements are intact; there is normal conjunctiva bilaterally. No signs of icterus. Ears, nose, mouth and throat: There are moist mucous membranes and no oral lesions. Neck: The neck is supple, there is no tenderness. Cardiovascular: There is a regular rate and rhythm. No murmur, rub or gallop is appreciated. Respiratory: Lungs are clear to auscultation, respirations are non-labored, breath sounds are diminished. Diffuse wheeze, no stridor, rales, or rhonchi. Gastrointestinal: Soft, non-distended, non-tender abdomen without masses or organomegaly noted. There is no rebound or guarding present. No CVA tenderness. Bowel sounds are unremarkable. Back: There is no tenderness to palpation in the midline. There is no obvious deformity. No rashes noted. Musculoskeletal: Normal ROM, no tenderness, bilateral pitting edema There is no calf tenderness or swelling. Sensation intact. Neurological: CN II-XII intact, There are no obvious motor or sensory deficits. Coordination appears grossly intact. Speech is normal. Skin: Skin is warm and dry and no rashes or lesions are noted. Psychiatric: Cooperative, appropriate mood & affect, normal judgment. (Gin Frias) Course <Peter Liu - Last Filed: 05/17/17 19:07> <Gin Frias - Last Filed: 05/17/17 19:14> Vital Signs 05/17/17 05/17/17 05/17/17 17:05 18:19 18:21 Temperature 98.8 F Pulse Rate 102 H 95 94 Respiratory 22 16 20 Rate Blood Pressure 209/129 199/102 O2 Sat by Pulse 97 100 Oximetry 05/17/17 05/17/17 05/17/17 18:29 18:39 18:48 Temperature Pulse Rate 98 102 H 95 Respiratory 16 18 20 Rate Blood Pressure 207/120 O2 Sat by Pulse 99 Oximetry 05/17/17 19:10 Temperature Pulse Rate 96 Respiratory 20 Rate Blood Pressure 199/120 O2 Sat by Pulse 97 Oximetry - Reevaluation(s) Reevaluation #1: 05/17/17 19:05 Sinus rhythm with premature supraventricular complexes and with occasional premature ventricular complexes prolonged QT, ventricular rate 99, ND interval 166 (Gin Frias) Medical Decision Making - Lab Data Result diagrams: 05/17/17 17:21 05/17/17 17:21 <Peter Liu - Last Filed: 05/17/17 19:07> - Lab Data Result diagrams: 05/17/17 17:21 05/17/17 17:21 <Gin Frias - Last Filed: 05/17/17 19:14> - Medical Decision Making The patient was seen and examined. All diagnostics were reviewed. The case will be discussed with internal medicine shortly. The case is discussed with the PA and I agree with findings as documented. (Peter Liu) 62-year-old male presents for shortness of breath and cough. This time x-ray does read possible bilateral effusions along with consolidation. This time or suspicious to be CHF and volume overload due to acute on chronic kidney failure as well as an elevated BNP. We did give 1 dose of Levaquin. At this time patient has had some improvement blood pressure is still elevated we will continue to treat with labetalol. We will admit the patient for nephrology and cardiology consults. This was discussed with the patient who is in agreement this plan. Patient will require dialysis. (Gin Frias) - Lab Data Lab Results 05/17/17 05/17/17 05/17/17 Range/Units 17:21 17:21 17:21 WBC 11.0 H (3.8-10.6) k/uL RBC 3.42 L (4.30-5.90) m/uL Hgb 9.6 L D (13.0-17.5) gm/dL Hct 29.4 L (39.0-53.0) % MCV 85.8 D (80.0-100.0) fL MCH 28.1 (25.0-35.0) pg MCHC 32.8 (31.0-37.0) g/dL RDW 14.7 (11.5-15.5) % Plt Count 235 (150-450) k/uL Neutrophils % 71 % Lymphocytes % 18 % Monocytes % 7 % Eosinophils % 3 % Basophils % 0 % Neutrophils # 7.8 H (1.3-7.7) k/uL Lymphocytes # 2.0 (1.0-4.8) k/uL Monocytes # 0.7 (0-1.0) k/uL Eosinophils # 0.3 (0-0.7) k/uL Basophils # 0.0 (0-0.2) k/uL PT (9.0-12.0) sec INR (<1.2) APTT (22.0-30.0) sec Sodium 146 H (137-145) mmol/L Potassium 4.0 (3.5-5.1) mmol/L Chloride 112 H (98-107) mmol/L Carbon Dioxide 16 L (22-30) mmol/L Anion Gap 18 mmol/L BUN 58 H (9-20) mg/dL Creatinine 10.10 H* (0.66-1.25) mg/dL Est GFR (CKD-EPI)AfAm 6 (>60 ml/min/1.73 sqM) Est GFR (CKD-EPI)NonAf 5 (>60 ml/min/1.73 sqM) Glucose 110 H (74-99) mg/dL Calcium 9.2 (8.4-10.2) mg/dL Total Bilirubin 0.8 (0.2-1.3) mg/dL AST 37 (17-59) U/L ALT 17 L (21-72) U/L Alkaline Phosphatase 58 (38-126) U/L Total Creatine Kinase 672 H (55-170) U/L CK-MB (CK-2) 2.5 H* (0.0-2.4) ng/mL CK-MB (CK-2) Rel Index 0.4 Troponin I 0.168 H* (0.000-0.034) ng/mL NT-Pro-B Natriuret Pep pg/mL Total Protein 6.0 L (6.3-8.2) g/dL Albumin 3.0 L (3.5-5.0) g/dL 05/17/17 05/17/17 Range/Units 17:21 17:21 WBC (3.8-10.6) k/uL RBC (4.30-5.90) m/uL Hgb (13.0-17.5) gm/dL Hct (39.0-53.0) % MCV (80.0-100.0) fL MCH (25.0-35.0) pg MCHC (31.0-37.0) g/dL RDW (11.5-15.5) % Plt Count (150-450) k/uL Neutrophils % % Lymphocytes % % Monocytes % % Eosinophils % % Basophils % % Neutrophils # (1.3-7.7) k/uL Lymphocytes # (1.0-4.8) k/uL Monocytes # (0-1.0) k/uL Eosinophils # (0-0.7) k/uL Basophils # (0-0.2) k/uL PT 10.7 (9.0-12.0) sec INR 1.1 (<1.2) APTT 18.7 L (22.0-30.0) sec Sodium (137-145) mmol/L Potassium (3.5-5.1) mmol/L Chloride (98-107) mmol/L Carbon Dioxide (22-30) mmol/L Anion Gap mmol/L BUN (9-20) mg/dL Creatinine (0.66-1.25) mg/dL Est GFR (CKD-EPI)AfAm (>60 ml/min/1.73 sqM) Est GFR (CKD-EPI)NonAf (>60 ml/min/1.73 sqM) Glucose (74-99) mg/dL Calcium (8.4-10.2) mg/dL Total Bilirubin (0.2-1.3) mg/dL AST (17-59) U/L ALT (21-72) U/L Alkaline Phosphatase (38-126) U/L Total Creatine Kinase (55-170) U/L CK-MB (CK-2) (0.0-2.4) ng/mL CK-MB (CK-2) Rel Index Troponin I (0.000-0.034) ng/mL NT-Pro-B Natriuret Pep 04719 pg/mL Total Protein (6.3-8.2) g/dL Albumin (3.5-5.0) g/dL Disposition <Peter Liu - Last Filed: 05/17/17 19:07> Decision Date: 05/17/17 Decision Time: 19:07 <Gin Frias - Last Filed: 05/17/17 19:14> Clinical Impression: Acute kidney injury superimposed on chronic kidney disease, Hypertension, Leg edema, CHF (congestive heart failure), Volume overload, Elevated troponin I level Disposition: ADMITTED IP TO THIS HOSP Condition: Fair Referrals: Trav Velasquez MD [Primary Care Provider] - 1-2 days
--- NOTE | 2017-05-17 18:10 | XR ---
EXAMINATION TYPE: XR chest 2V DATE OF EXAM: 05/17/2017 COMPARISON: 06/23/2016 HISTORY: Dizziness TECHNIQUE: Frontal and lateral views of the chest are obtained. FINDINGS: There is blunting of costophrenic angles and more on the left side. There is patchy consol idation in the left lower lobe and also an elongated 8 x 3 cm area of consolidation in the right uppe r lobe. There is patchy right lower lobe consolidation also. Left upper lobe is relatively clear. Hea rt size is normal. There is no gross heart failure. IMPRESSION: Compared to last exam there are new extensive bilateral pulmonary infiltrates with pleur al effusions. No gross heart failure.
[2017-05-17] MEDS ORDERED: LEVOFLOXACIN 750MG-D5W PMX 750 MG in DEXTROSE/WATER 1 150ML.BAG IVPB STA (18:14)
[2017-05-17 18:18] LABS: Basophils % (A) 0 %; Calcium 9.2 mg/dL (8.4-10.2); Eosinophils # (A) 0.3 k/uL (0-0.7); Eosinophils % (A) 3 %; HCT 29.4 % (39.0-53.0); Lymphocytes % (A) 18 %; MCH 28.1 pg (25.0-35.0); MCHC 32.8 g/dL (31.0-37.0); Mean Platelet Volume 9.3; Monocytes # (A) 0.7 k/uL (0-1.0); Monocytes % (A) 7 %; Neutrophils # (A) 7.8 k/uL (1.3-7.7); Neutrophils % (A) 71 %; Platelet Count 235 k/uL (150-450); RBC 3.42 m/uL (4.30-5.90); RDW 14.7 % (11.5-15.5); Total Bilirubin 0.8 mg/dL (0.2-1.3)
[2017-05-17 18:20] LABS: HGB 9.6 gm/dL (13.0-17.5); MCV 85.8 fL (80.0-100.0)
[2017-05-17 18:40] LABS: Creatine Kinase MB 2.5 ng/mL (0.0-2.4); Troponin I 0.168 ng/mL (0.000-0.034)
[2017-05-17 18:43] LABS: INR 1.1 (<1.2)
[2017-05-17 18:44] LABS: Prothrombin Time 10.7 sec (9.0-12.0)
[2017-05-17 18:46] LABS: Partial Thromboplastin Time 18.7 sec (22.0-30.0)
[2017-05-17] MEDS ORDERED: FUROSEMIDE 10 MG/ML 4 ML VIAL IV STA (19:06)
[2017-05-17] MEDS ORDERED: ASPIRIN 325 MG TAB PO STA (19:14)
[2017-05-17] MEDS ORDERED: hydrALAZINE HCL 20 MG/ML 1 ML VIAL IVP PRN (19:17)
[2017-05-17] MEDS ORDERED: CARVEDILOL 3.125 MG TAB PO SCH (21:00)
[2017-05-17 21:30] LABS: Amorphous Sediment,Urine Occasional /hpf; Appearance,Urine Cloudy (Clear); Bacteria,Urine Rare /hpf; Bilirubin,Urine Negative (Negative); Blood,Urine Moderate (Negative); Color,Urine Yellow; Glucose,Urine (UA) 2+ (Negative); Granular Casts,Urine 1 /lpf (0); Hyaline Casts,Urine 11 /lpf (0-2); Ketones,Urine Trace (Negative); Leukocyte Esterase,Urine Negative (Negative); Mucus,Urine Rare /hpf; Nitrite,Urine Negative (Negative); PH, Urine 6.5 (5.0-8.0); Protein,Urine 3+ (Negative); RBC,Urine 6 /hpf (0-5); Specific Gravity,Urine 1.016 (1.001-1.035); Squamous Epithelial Cell,Urine 2 /hpf (0-4); Urobilinogen,Urine <2.0 mg/dL (<2.0); WBC,Urine 8 /hpf (0-5)
[2017-05-17] MEDS: metFORMIN 500 MG TAB PO SCH ×2 (22:40→22:47)
[2017-05-17] MEDS: ATORVASTATIN 20 MG TAB PO SCH (22:40)
[2017-05-17] MEDS: TACROLIMUS 1 MG CAP PO SCH (22:41)
[2017-05-17] MEDS: MYCOPHENOLATE MOFETIL 250 MG CAP PO SCH (22:42)
[2017-05-17] MEDS: CARVEDILOL 12.5 MG TAB PO SCH (22:42)
[2017-05-17] MEDS ORDERED: MAGNESIUM HYDROXIDE 2,400 MG/10 ML CUP PO PRN (23:30)
[2017-05-17] MEDS ORDERED: MELATONIN 3 MG TABLET PO PRN (23:30)
[2017-05-17] MEDS ORDERED: NALOXONE 0.4 MG/ML 1 ML VIAL IV PRN (23:30)
[2017-05-17] MEDS ORDERED: LACTULOSE 20 GM/30 ML CUP PO PRN (23:30)
[2017-05-17] MEDS ORDERED: ACETAMINOPHEN TAB 325 MG TAB PO PRN (23:30)
[2017-05-17] MEDS ORDERED: ONDANSETRON 4 MG/2 ML VIAL IVP PRN (23:30)
[2017-05-17] MEDS ORDERED: LORazepam 0.5 MG TAB PO PRN (23:30)
[2017-05-17] MEDS ORDERED: CALCIUM CARBONATE 500 MG CHEWABLE PO PRN (23:30)
--- NOTE | 2017-05-17 23:56 | HP ---
HISTORY AND PHYSICAL DATE OF ADMISSION: May 17, 2017. PRESENTING COMPLAINT: Short of breath. HISTORY OF PRESENTING COMPLAINT: This is a 62-year-old patient follows with Dr. Velasquez. Chronic stable medical conditions include COPD, diabetes, hypertension, hyperlipidemia. The patient had a kidney transplant secondary to hepatitis C over 10 years ago at [place]. The patient over a period of time has been losing his renal function. The patient from 12 years ago has a graft in the left arm. He has been seen by Dr. Brandon from Nephrology and is due to start dialysis very shortly. The patient now presents with worsening short of breath, weak, tired, lower extremity edema, getting much worse, some cough and could not take it much longer hence decided to come to the ER. REVIEW OF SYSTEMS: Weak,tired, and un down. HEENT none. Respiratory as above. Cardiovascular as above. Gastrointestinal none. Musculoskeletal none. Dermatological and hematologic, lymphatic none. Psychiatry none. Neurological none. PAST MEDICAL HISTORY: COPD diabetes, hypertension, hyperlipidemia, end-stage kidney disease, hepatitis C. PAST SURGICAL HISTORY: Kidney transplant 10 years ago, in [place]. SOCIAL HISTORY: The patient has been smoking for over 40 years, now down to few cigarettes a day. Denies alcohol. Lives by himself. FAMILY HISTORY: Of cancer type unknown. HOME MEDICATIONS: 1. Prilosec 20 mg a day. 2. B2-1 tab p.o. daily. 3. Glucophage 500 mg p.o. b.i.d. 4. Calcitriol 0.25 mcg p.o. daily. 5. Norvasc 10 mg p.o. daily. 6. Prograf 2 mg p.o. b.i.d. 7. Prandin 0.5 a.c. supper. 8. CellCept 750 mg b.i.d. 9. Coreg 25 mg p.o. b.i.d. and Coreg 3.125 p.o. b.i.d. 10.Lipitor 20 mg q.h.s. ALLERGIES: None. PHYSICAL EXAMINATION: Temperature is 98.8, pulse 102, respiratory 22, blood pressure 209/129, pulse ox 97% on 2 L. GENERAL APPEARANCE: Thin build, sitting up, tired appearing. Eyes pupils are equal. Conjunctivae normal. Pale. HEENT external appearance of nose and ears normal. Oral cavity normal. Neck JVD not raised. Mass not palpable. Respiratory effort lungs decreased breath sounds. Some expiratory wheezing. Cardiovascular 1st and 2nd sounds normal. Gross edema. ABDOMEN: Soft nontender. Liver and spleen not palpable. Lymphatics: No lymph nodes palpable in neck or axillae. PSYCHIATRY: Alert and oriented times three. Mood and affect normal. Extremities: Left arm has got a graft in place. INVESTIGATIONS: White count 11, hemoglobin 9.6, platelets 235, potassium 4, BUN 58, creatinine 10.10, troponin 0.168, albumin 3.0. Chest x-ray showing pleural effusions. ASSESSMENT: 1. Acute pulmonary edema secondary to fluid overload from worsening renal function. 2. Chronic obstructive pulmonary disease in a current smoker. 3. Chronic nicotine dependence patient is a long-standing smoker. 4. Diabetes mellitus type 2 on oral hypoglycemic. 5. Hypertensive urgency. 6. History of kidney transplant 10 years ago. 7. End-stage kidney disease with a prior involved for hepatitis C, now getting worse. 8. Acute fluid overload from end-stage kidney disease. PLAN: Home medications will be resumed. Nephrology was consulted for urgent dialysis. Patient will be put on breathing treatments. Blood pressure control will be done. Overall prognosis is guarded. Smoking cessation counseling was done with the patient. He was told that will make things worse for him including nicotine patch will be given. More than 3 minutes was spent for this aspect of the case. SHENG / SIVAN: [id number] /
[2017-05-18] MEDS ORDERED: NITROGLYCERIN OINT 1 INCH/GM PACKET TOPICAL SCH
[2017-05-18 01:36] LABS: Creatine Kinase MB 2.3 ng/mL (0.0-2.4)
[2017-05-18] MEDS: NICOTINE 21MG/24HR PATCH TRANSDERM SCH ×2 (01:37→17:54)
[2017-05-18 01:38] LABS: Troponin I 0.149 ng/mL (0.000-0.034)
[2017-05-18 06:31] LABS: Glucose,Whole Blood 308 mg/dL (75-99)
[2017-05-18] MEDS: CARVEDILOL 12.5 MG TAB PO SCH ×2 (06:52→18:02)
[2017-05-18] MEDS: PANTOPRAZOLE 40 MG TABLET PO SCH (06:53)
[2017-05-18] MEDS: INSULIN ASPART 100 UNIT/ML 1 ML 10 ML VIAL SQ SCH ×3 (06:53→17:51)
[2017-05-18] MEDS ORDERED: FUROSEMIDE 10 MG/ML 4 ML VIAL IV SCH (07:00)
[2017-05-18 07:24] LABS: HCT 25.8 % (39.0-53.0); HGB 8.4 gm/dL (13.0-17.5); MCH 28.3 pg (25.0-35.0); MCHC 32.6 g/dL (31.0-37.0); MCV 86.7 fL (80.0-100.0); Mean Platelet Volume 7.7; Platelet Count 167 k/uL (150-450); RBC 2.97 m/uL (4.30-5.90); RDW 14.8 % (11.5-15.5); WBC 5.4 k/uL (3.8-10.6)
[2017-05-18 07:29] LABS: Albumin 2.5 g/dL (3.5-5.0); Calcium 8.6 mg/dL (8.4-10.2); Magnesium 1.9 mg/dL (1.6-2.3); Potassium 4.2 mmol/L (3.5-5.1); Total Bilirubin 0.3 mg/dL (0.2-1.3); Total Protein 5.1 g/dL (6.3-8.2)
[2017-05-18] MEDS: IPRATROPIUM-ALBUTEROL 3 ML NEB INHALATION SCH ×4 (07:45→19:20)
[2017-05-18 08:04] LABS: Creatine Kinase MB 2.8 ng/mL (0.0-2.4); Troponin I 0.121 ng/mL (0.000-0.034)
[2017-05-18] MEDS ORDERED: ENOXAPARIN 40 MG/0.4 ML SYRINGE SQ SCH (09:00)
--- NOTE | 2017-05-18 11:53 | P.NPCON ---
History of Present Illness - Reason for Consult chronic renal failure - History of Present Illness Reason for consultation: Chronic kidney disease History of present illness: Patient is a 62-year-old male seen in renal consultation for renal transplant management of chronic renal failure. Patient received a donor renal allograft in 2007 and is allograft function has been progressively declining. 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 Patient has significant interstitial fibrosis and tubular atrophy and was scheduled to start peritoneal dialysis. However patient changed his mind and now wants to do in center hemodialysis. He has a left upper extremity AV fistula with a good thrill. His recent GFR has been less than 15. Patient presented to the hospital with dyspnea. Patient states he's been out of breath for the last 2-3 days and also has edema in his lower extremities. His blood pressures have been running on the higher side. He denies chest pain. He's currently receiving IV diuretics and feels somewhat better. No vomiting or diarrhea. Vital signs are stable. General: The patient appeared well nourished and normally developed. HEENT: Head exam is unremarkable. Neck is without jugular venous distension. LUNGS: Lungs are clear to auscultation and percussion. Breath sounds decreased. HEART: Rate and Rhythm are regular. First and second heart sounds normal. No murmurs, rubs or gallops. ABDOMEN: Abdominal exam reveals normal bowel sounds. Non-tender and non- distended. No evidence of peritonitis. EXTREMITITES: 2+ edema. Past Medical History Past Medical History: Chest Pain / Angina, COPD, Diabetes Mellitus, Hyperlipidemia, Hypertension Additional Past Medical History / Comment(s): Hepatitis C, History of Any Multi-Drug Resistant Organisms: None Reported Additional Past Surgical History / Comment(s): Kidney transplant in past. had bx of transplanted kidney at [facility] in may 2016-was started on steriod therapy. Past Anesthesia/Blood Transfusion Reactions: No Reported Reaction Past Psychological History: No Psychological Hx Reported Smoking Status: Former smoker Past Alcohol Use History: None Reported Additional Past Alcohol Use History / Comment(s): started smoking 1969 has been cutting down-currently smokes 4-5 cig per day Past Drug Use History: None Reported Additional Drug Use History / Comment(s): smokes less than a pack of cigs a day - Past Family History Father Family Medical History: Cancer Mother Family Medical History: No Reported History Medications and Allergies Home Medications Medication Instructions Recorded Confirmed Type Atorvastatin [Lipitor] 20 mg PO HS 06/23/16 05/17/17 History amLODIPine [Norvasc] 10 mg PO DAILY 06/23/16 05/17/17 History Carvedilol [Coreg] 3.125 mg PO BID 02/25/17 05/17/17 History Mycophenolate Mofetil [Cellcept] 750 mg PO BID 02/25/17 05/17/17 History Repaglinide [Prandin] 0.5 mg PO AC-SUPPER 02/25/17 05/17/17 History Tacrolimus [Prograf] 2 mg PO BID 02/25/17 05/17/17 History Beet Root 500mg 1 tab PO DAILY 05/17/17 05/17/17 History Calcitriol 0.25 mcg PO DAILY 05/17/17 05/17/17 History Carvedilol [Coreg] 25 mg PO BID 05/17/17 05/17/17 History Omeprazole [PriLOSEC] 20 mg PO DAILY 05/17/17 05/17/17 History metFORMIN HCL [Glucophage] 500 mg PO BID 05/17/17 05/17/17 History Allergies Allergy/AdvReac Type Severity Reaction Status Date / Time No Known Allergies Allergy Verified 05/17/17 17:40 Physical Exam Vitals: Vital Signs Temp Pulse Pulse Resp BP BP Pulse Ox 05/18/17 11:25 86 05/18/17 11:17 88 05/18/17 08:00 97.6 F 97 87 16 174/90 99 05/18/17 07:45 96 05/18/17 03:34 85 19 05/18/17 03:31 98.5 F 85 19 170/106 95 05/18/17 00:00 99 F 85 18 177/100 94 L 05/17/17 23:30 92 L 05/17/17 22:28 101 H 24 178/102 97 05/17/17 20:57 95 24 166/91 93 L 05/17/17 20:03 96 24 166/92 91 L 05/17/17 19:43 99 F 104 H 88 20 211/110 170/100 94 L 05/17/17 19:10 96 20 199/120 97 05/17/17 18:49 101 H 18 05/17/17 18:48 95 20 207/120 99 05/17/17 18:39 102 H 18 05/17/17 18:29 98 16 05/17/17 18:21 94 20 199/102 100 05/17/17 18:19 95 16 05/17/17 17:05 98.8 F 102 H 22 209/129 97 Intake and Output 05/17/17 05/18/17 05/18/17 22:59 06:59 14:59 Intake Total 200 Output Total 100 100 Balance -100 100 Intake: Oral 200 Output: Urine 100 100 Other: Voiding Method Urinal Urinal # Voids 1 Weight 77.111 kg 84.6 kg Results - Lab Results Most recent lab results Calcium 8.6 mg/dL (8.4-10.2) 05/18/17 06:52 Phosphorus 6.3 mg/dL (2.5-4.5) H 05/18/17 06:52 Magnesium 1.9 mg/dL (1.6-2.3) 05/18/17 06:52 05/18/17 06:52 05/18/17 06:52 Assessment and Plan Plan: Assessment: #1. Status post donor renal allograft in 2007 with significant interstitial fibrosis and tubular atrophy. He had a kidney biopsy in February 2017 which revealed chronic changes with plans to initiate renal replacement therapy. #2. Chronic kidney disease stage V with plans to initiate renal replacement therapy. He's had episodes of rejections in the past. #3. Volume overload secondary to chronic kidney disease. #4. Hypertension with chronic kidney disease. Partially volume sensitive. #5. Metabolic acidosis secondary to chronic kidney disease. #6. Anemia of chronic kidney disease. Rule out iron deficiency. Plan: First treatment of hemodialysis today with goal 2 liters ultrafiltration. Second treatment tomorrow. Check iron studies. Add oral sodium bicarbonate 1300 mg twice daily. I will decrease dose of CellCept to 500 mg twice daily. Continue with Prograf 2 mg twice daily and prednisone 5 mg daily. I will increase Lasix to 80 mg IV every 8 hours. He already has outpatient hemodialysis set up for a Wednesday schedule 1st shift. Thank you for the consultation. I will continue to follow the patient with you during his hospital stay.
[2017-05-18 12:01] LABS: Glucose,Whole Blood 185 mg/dL (75-99)
--- NOTE | 2017-05-18 12:19 | CONS ---
CONSULTATION CHIEF COMPLAINT: Leg edema and shortness of breath. This is a 62-year-old gentleman with history of end-stage renal disease, status post transplant, who has developed recurrence of his renal failure and actually in the process of being started on dialysis, who comes to hospital complaining of shortness of breath. Patient has worse progressively worsening bilateral leg edema and is also short of breath. His complex medical history including hypertension, dyslipidemia, diabetes, COPD, and kidney transplant and hepatitis C. I believe the worsening leg edema and shortness of breath are related to renal failure and dialysis is the answer to his problem. PAST MEDICAL HISTORY: Significant for hypertension, diabetes, dyslipidemia, end-stage renal disease, hepatitis C, kidney transplant. MEDICATIONS: At home included Glucophage, Norvasc, Prograf, Prandin, CellCept, Coreg, Lipitor, Prilosec. ALLERGIES: As charted. FAMILY HISTORY: Negative for premature coronary artery disease. SOCIAL HISTORY: Significant for smoking. There is no history of EtOH abuse or drug abuse. REVIEW OF SYSTEMS: HEENT is unremarkable. CARDIAC: As described above. RESPIRATORY: As described above. GI: Negative. GENITOURINARY: Negative. ALLERGY/IMMUNOLOGY: Negative. SKIN: Negative. MUSCULOSKELETAL: Significant for arthritis. PSYCHOSOCIAL: Negative. ENDOCRINE: Negative. HEMATOLOGIC: Negative. DERM: Negative. CONSTITUTIONAL: Negative. ONCOLOGICAL: Negative. Rest of the system review is not relevant. On exam, patient is comfortable at rest. Vital signs are stable. Blood pressure is elevated at 174/90, respiratory rate is 18, O2 sat is 99% on 3 L. There is no jugular venous distention. Carotid upstroke is diminished. There is no bruit. Chest exam reveals diminished air entry at the bases. Heart exam reveals first and second heart sounds and S4 is heard. Abdomen is soft. Exam of extremities reveals bilateral moderate pitting edema. Labs show a hemoglobin of 8.4, potassium is 4.2, creatinine is 10, BUN is 67. Troponins are at 0.1, 0.1 and 0.1. EKG shows sinus tachycardia, PVCs and extensive ST- T wave changes. ASSESSMENT: 1. Shortness of breath secondary to end-stage renal disease. 2. Elevated troponin secondary to renal failure. 3. Anemia. 4. Uncontrolled hypertension. PLAN: I will obtain a 2D echo to document his LV function. Needs optimal blood pressure control with Norvasc, Coreg, and will start him on oral hydralazine. I anticipate his improving rapidly with dialysis. His troponin elevation is related to renal failure, does not require further evaluation. I will obtain a 2D echo on him. MMODL / IJN: [id number] /
[2017-05-18 16:31] LABS: Glucose,Whole Blood 215 mg/dL (75-99)
--- NOTE | 2017-05-18 16:46 | PN ---
PROGRESS NOTE DATE OF SERVICE: 05/18/2017. PRESENTING COMPLAINT: Short of breath.. INTERVAL HISTORY: This is a patient with renal transplant who has gone into chronic kidney disease, stage V, with volume overload. The patient was scheduled to start his hemodialysis today but came in because his symptoms were getting much worse this morning. Awaiting the same. Some shortness of breath. REVIEW OF SYSTEMS: Done for constitutional, cardiovascular, GI, pulmonary; relevant findings as above. CURRENT MEDICATIONS: Current medications are reviewed that include: 1. DuoNeb. 2. Norvasc. 3. Lipitor. 4. Calcitriol. 5. Coreg. 6. IV Lasix. 7. CellCept 500 mg b.i.d. 8. Prograf. PHYSICAL EXAMINATION: Temperature 97.6, pulse 97, respiratory rate 18, blood pressure 174/90, pulse ox 99% on 3 L. GENERAL APPEARANCE: Sitting up. Tired-appearing. EYES: Pupils equal. Conjunctivae pale. HEENT: External appearance of nose and ears normal. Oral cavity normal. NECK: JVD unable to assess. Mass not palpable. RESPIRATORY: Effort increased. LUNGS: Decreased breath sounds. CARDIOVASCULAR: First and second sounds normal. Gross edema. ABDOMEN: Soft, nontender. Liver and spleen not palpable. PSYCHIATRY: Alert and oriented x3. Mood and affect normal. EXTREMITIES: Left arm has a graft. INVESTIGATIONS: White count 5.4, hemoglobin 8.4, potassium 4.2, BUN 67, creatinine 10.12, troponin 0.121. ASSESSMENT: 1. Acute pulmonary edema secondary to fluid overload from worsening renal failure. 2. Chronic obstructive pulmonary disease in a current smoker. 3. Chronic nicotine dependence. Patient is a long-standing smoker. 4. Diabetes mellitus, type 2, on oral hypoglycemic. 5. Hypertensive urgency, uncontrolled. 6. Chronic kidney disease, stage V. 7. Status post -donor renal allograft in 2008 with significant interstitial fibrosis and tubular atrophy with a biopsy in 2018 showing chronic changes. 8. Metabolic acidosis secondary to chronic kidney disease. 9. Anemia secondary to chronic kidney disease. PLAN: Patient is due to start hemodialysis today. Patient will get a 2D echocardiogram. Blood pressure medications are being adjusted. Transfer rejection medications are being adjusted by Nephrology. Care was discussed with the patient. The patient was also started on IV Lasix by Nephrology. Prognosis is guarded. MMODL / IJN: [id number] /
[2017-05-18 16:49] LABS: Iron Saturation 21.4 (15.00-50.00)
[2017-05-18] MEDS ORDERED: GELATIN SPONGE,ABSORB (SMALL) 1 EACH SPONGE ONE (17:30)
[2017-05-18] MEDS: amLODIPine 10 MG TAB PO SCH (17:53)
[2017-05-18] MEDS: ASPIRIN 325 MG TAB PO SCH (17:54)
[2017-05-18] MEDS: CALCITRIOL 0.25 MCG CAP PO SCH (17:54)
[2017-05-18] MEDS: SODIUM BICARBONATE TAB 650 MG TAB PO SCH ×2 (17:59→21:49)
[2017-05-18] MEDS: TACROLIMUS 1 MG CAP PO SCH ×2 (17:59→21:49)
[2017-05-18] MEDS ORDERED: LEVOFLOXACIN 750MG-D5W PMX 750 MG in DEXTROSE/WATER 1 150ML.BAG IVPB SCH (18:00)
[2017-05-18] MEDS: FUROSEMIDE 10 MG/ML 10 ML VIAL IV SCH ×2 (18:01→20:10)
[2017-05-18] MEDS: REPAGLINIDE 1 MG TAB PO SCH (18:03)
[2017-05-18] MEDS: MYCOPHENOLATE MOFETIL 250 MG CAP PO SCH (18:54)
[2017-05-18] MEDS: predniSONE 5 MG TAB PO SCH (19:12)
[2017-05-18] MEDS: hydrALAZINE HCL 50 MG TAB PO SCH ×2 (19:12→23:32)
[2017-05-18 21:00] LABS: Glucose,Whole Blood 207 mg/dL (75-99)
[2017-05-18] MEDS ORDERED: INSULIN ASPART 100 UNIT/ML 1 ML 10 ML VIAL SQ ONE (21:02)
[2017-05-18] MEDS: ATORVASTATIN 20 MG TAB PO SCH (21:48)
[2017-05-18] MEDS: MYCOPHENOLATE MOFETIL 500 MG TAB PO SCH (21:48)
[2017-05-19] MEDS: FUROSEMIDE 10 MG/ML 10 ML VIAL IV SCH ×3 (04:52→21:36)
[2017-05-19 06:11] LABS: Glucose,Whole Blood 257 mg/dL (75-99)
[2017-05-19] MEDS: INSULIN ASPART 100 UNIT/ML 1 ML 10 ML VIAL SQ SCH ×3 (06:33→18:13)
[2017-05-19] MEDS: PANTOPRAZOLE 40 MG TABLET PO SCH (06:33)
[2017-05-19] MEDS: CARVEDILOL 12.5 MG TAB PO SCH ×2 (06:33→18:13)
[2017-05-19 06:44] LABS: HCT 27.7 % (39.0-53.0); HGB 9.2 gm/dL (13.0-17.5); MCH 28.5 pg (25.0-35.0); MCHC 33.1 g/dL (31.0-37.0); MCV 86.1 fL (80.0-100.0); Mean Platelet Volume 8.3; Platelet Count 212 k/uL (150-450); RBC 3.22 m/uL (4.30-5.90); RDW 15.1 % (11.5-15.5); WBC 13.3 k/uL (3.8-10.6)
[2017-05-19 06:55] LABS: Potassium 3.5 mmol/L (3.5-5.1)
[2017-05-19 06:56] LABS: Albumin 2.5 g/dL (3.5-5.0); Calcium 8.5 mg/dL (8.4-10.2); Total Bilirubin 0.2 mg/dL (0.2-1.3); Total Protein 5.1 g/dL (6.3-8.2)
[2017-05-19] MEDS: IPRATROPIUM-ALBUTEROL 3 ML NEB INHALATION SCH ×4 (07:05→20:32)
[2017-05-19] MEDS: NICOTINE 21MG/24HR PATCH TRANSDERM SCH (08:27)
[2017-05-19] MEDS ORDERED: hydrALAZINE HCL 50 MG TAB PO SCH (09:00)
[2017-05-19] MEDS ORDERED: DARBEPOETIN ALFA 40 MCG/0.4 ML SYRINGE SQ SCH (09:30)
--- NOTE | 2017-05-19 09:31 | P.PN ---
Subjective Patient is seen in follow-up for progressive chronic kidney disease/allograft failure. Patient now has chronic kidney disease stage V and was started on hemodialysis May 18. Patient still is quite a bit of edema. Blood pressures are still on the higher side. He underwent first treatment of hemodialysis yesterday and had near 3 L ultrafiltration. He is currently seeing 1 undergoing second treatment of hemodialysis. Patient states he developed some tremors from nebulized albuterol. Denies chest pain or shortness of breath. Vital signs are stable. General: The patient appeared well nourished and normally developed. HEENT: Head exam is unremarkable. Neck is without jugular venous distension. LUNGS: Lungs are clear to auscultation and percussion. Breath sounds decreased. HEART: Rate and Rhythm are regular. First and second heart sounds normal. No murmurs, rubs or gallops. ABDOMEN: Abdominal exam reveals normal bowel sounds. Non-tender and non- distended. No evidence of peritonitis. EXTREMITITES: 2+ edema. Objective - Vital Signs Vital signs: Vital Signs Temp 97.2 F L 05/19/17 08:00 Pulse 76 05/19/17 08:00 Resp 16 05/19/17 08:00 BP 166/95 05/19/17 08:00 Pulse Ox 94 L 05/19/17 08:00 Intake & Output 05/18/17 05/19/17 05/19/17 18:59 06:59 18:59 Intake Total 240 Output Total 0 540 Balance 0 -540 240 Weight 82.3 kg Intake: Oral 240 Output: Urine 0 540 Other: Voiding Method Urinal Urinal # Voids 1 - Labs CBC & Chem 7: 05/19/17 06:27 05/19/17 06:27 Labs: Abnormal Lab Results - Last 24 Hours (Table) 05/18/17 05/18/17 05/18/17 Range/Units 06:52 06:52 11:56 WBC (3.8-10.6) k/uL RBC (4.30-5.90) m/uL Hgb (13.0-17.5) gm/dL Hct (39.0-53.0) % Sodium (137-145) mmol/L BUN (9-20) mg/dL Creatinine (0.66-1.25) mg/dL Glucose (74-99) mg/dL POC Glucose (mg/dL) 185 H (75-99) mg/dL Phosphorus 6.3 H (2.5-4.5) mg/dL Iron 52 L (65-175) ug/dL Ferritin 443.7 H (22.0-322.0) ng/mL ALT (21-72) U/L Total Protein (6.3-8.2) g/dL Albumin (3.5-5.0) g/dL 05/18/17 05/18/17 05/19/17 Range/Units 16:25 20:58 06:08 WBC (3.8-10.6) k/uL RBC (4.30-5.90) m/uL Hgb (13.0-17.5) gm/dL Hct (39.0-53.0) % Sodium (137-145) mmol/L BUN (9-20) mg/dL Creatinine (0.66-1.25) mg/dL Glucose (74-99) mg/dL POC Glucose (mg/dL) 215 H 207 H 257 H (75-99) mg/dL Phosphorus (2.5-4.5) mg/dL Iron (65-175) ug/dL Ferritin (22.0-322.0) ng/mL ALT (21-72) U/L Total Protein (6.3-8.2) g/dL Albumin (3.5-5.0) g/dL 05/19/17 05/19/17 Range/Units 06:27 06:27 WBC 13.3 H (3.8-10.6) k/uL RBC 3.22 L (4.30-5.90) m/uL Hgb 9.2 L (13.0-17.5) gm/dL Hct 27.7 L (39.0-53.0) % Sodium 136 L (137-145) mmol/L BUN 61 H (9-20) mg/dL Creatinine 8.31 H* (0.66-1.25) mg/dL Glucose 236 H (74-99) mg/dL POC Glucose (mg/dL) (75-99) mg/dL Phosphorus (2.5-4.5) mg/dL Iron (65-175) ug/dL Ferritin (22.0-322.0) ng/mL ALT 19 L (21-72) U/L Total Protein 5.1 L (6.3-8.2) g/dL Albumin 2.5 L (3.5-5.0) g/dL Microbiology - Last 24 Hours (Table) 05/17/17 17:21 Blood Culture - Preliminary Blood No Growth after 24 hours Assessment and Plan Plan: Assessment: #1. Status post donor renal allograft in 2007 with significant interstitial fibrosis and tubular atrophy. He had a kidney biopsy in February 2017 which revealed chronic changes with plans to initiate renal replacement therapy. #2. Chronic kidney disease stage V started on hemodialysis this admission. First treatment was on May 18.. He's had episodes of rejections in the past. #3. Volume overload secondary to chronic kidney disease. #4. Hypertension with chronic kidney disease. Partially volume sensitive. #5. Metabolic acidosis secondary to chronic kidney disease. Improved postdialysis. #6. Anemia of chronic kidney disease. Iron deficiency noted. #7. Hyperphosphatemia secondary to chronic kidney disease. Expect improvement postdialysis. Plan: Second treatment of hemodialysis today with goal 3-4 liters ultrafiltration. Third treatment tomorrow. Ferrlecit 125 mg IV daily for 3 days. First dose today. Start Aranesp. Increase hydralazine to 50 mg 3 times daily. Maintain oral sodium bicarbonate 1300 mg twice daily. Dose of CellCept decreased to 500 mg twice daily this admission. Continue with Prograf 2 mg twice daily and prednisone 5 mg daily. Maintain Lasix 80 mg IV every 8 hours. Repeat labs including phosphorus in the morning. He already has outpatient hemodialysis set up for a Wednesday schedule 1st shift.
[2017-05-19 11:20] LABS: Glucose,Whole Blood 149 mg/dL (75-99)
--- NOTE | 2017-05-19 11:53 | CDI ---
Last Revision, January 2017 Documentation Clarification Form Date: 05/19/17 1151 From: Wendy Valderrama RN, CCDS Admit Date: 05/17/2017 7:07:00 PM Patient Name: Marlena Guillermo Visit Number: [id number] ATTENTION: The Clinical Documentation Specialists (CDI) and [facility] Coding Staff appreciate your assistance in clarifying documentation. Please respond to the clarification below the line at the bottom and electronically sign. The CDI & [facility] Coding staff will review the response and follow-up if needed. Please note: Queries are made part of the Legal Health Record. If you have any questions, please contact the author of this message via ITS. Dr. eLxie Meyers\\ Paresh Dexter DNP History/Risk Factors: CKD stage V, Kidney transplant smoker, DM, HTN. Clinical Indicators: 05/17 ED Note: "Acute kidney injury superimposed on chronic kidney disease, Hypertension, Leg edema, CHF (congestive heart failure), Volume overload, Elevated troponin I level." 05/17 H&P: "Acute pulmonary edema secondary to fluid overload from worsening renal function." VS/Pulse OX: Temp 98.8, HR 102, rr 22, b/p 209/129, spo2 97% 2l nc BNP: 19,400 06/25/16 Echocardiogram Results: EF 60-65% Chest X Ray: new extensive bilateral pulmonary infiltrates with pleural effusions. No gross heart failure. Treatment: No Cardiology Consult Lasix 80 MG IVP Q 8 hrs In your professional opinion, can you please clarify the acuity and type of CHF if known? Systolic Heart Failure: Acute Chronic Acute on Chronic Diastolic Heart Failure: Acute Chronic Acute on Chronic Systolic & Diastolic Heart Failure: Acute Chronic Acute on Chronic Heart Failure Unable to Determine Other, please specify____X Please continue to document in your progress notes and discharge summary in order to capture severity of illness and risk of mortality. Include clinical findings that support your diagnosis. MTDD
[2017-05-19] MEDS: CALCITRIOL 0.25 MCG CAP PO SCH (12:16)
[2017-05-19] MEDS: amLODIPine 10 MG TAB PO SCH (12:16)
[2017-05-19] MEDS: ASPIRIN 325 MG TAB PO SCH (12:16)
[2017-05-19] MEDS: TACROLIMUS 1 MG CAP PO SCH ×2 (12:17→21:36)
[2017-05-19] MEDS: SODIUM BICARBONATE TAB 650 MG TAB PO SCH ×2 (12:17→21:36)
[2017-05-19] MEDS: ENOXAPARIN 30 MG/0.3 ML SYRINGE SQ SCH (12:17)
[2017-05-19] MEDS: predniSONE 5 MG TAB PO SCH (12:17)
[2017-05-19] MEDS: hydrALAZINE HCL 50 MG TAB PO SCH ×3 (12:17→21:36)
[2017-05-19] MEDS: MYCOPHENOLATE MOFETIL 500 MG TAB PO SCH ×2 (12:17→21:35)
[2017-05-19] MEDS: SODIUM FERRIC GLUCONAT-SUCROSE 125 MG in SODIUM CHLORIDE 0.9% 100 ML IVPB SCH (12:18)
--- NOTE | 2017-05-19 12:29 | P.PN ---
Subjective Progress Note Date: 05/19/17 Principal diagnosis: Shortness of breath This is a 62-year-old gentleman with history of end-stage renal disease, status post prior transplant, who developed recurrence of his renal failure, presented to the hospital complaining of shortness of breath and increase in bilateral peripheral edema. Patient also has history of hypertension, diabetes, COPD, hepatitis C. Patient was seen in consultation by Dr. Canela yesterday. Patient was noted to be quite hypertensive yesterday and medication adjustments were made. He was also noted to have a mild abnormality in his troponin which was felt to be secondary to renal failure. An echocardiogram with Doppler study was performed which as yet pending. Blood cultures did not reveal any growth. At the time of my examination this morning, patient is currently undergoing dialysis. Blood pressure 166/90 with a heart rate in the 70s, temperature 97.2. White blood cell count 13.3, hemoglobin 9.2, platelet count 212. Sodium 136, potassium 3.5, BUN 61, creatinine 8.3. Objective - Vital Signs Vital signs: Vital Signs Temp 97.2 F L 05/19/17 08:00 Pulse 76 05/19/17 08:00 Resp 16 05/19/17 08:00 BP 166/95 05/19/17 08:00 Pulse Ox 94 L 05/19/17 08:00 Intake & Output 05/18/17 05/19/17 05/19/17 18:59 06:59 18:59 Intake Total 240 Output Total 0 540 Balance 0 -540 240 Weight 82.3 kg Intake: Oral 240 Output: Urine 0 540 Other: Voiding Method Urinal Urinal # Voids 1 - Exam PHYSICAL EXAMINATION: HEENT: Head is atraumatic, normocephalic. Pupils equal, round. Neck is supple. There is no elevated jugular venous pressure. HEART EXAMINATION: Heart S1, S2 normal. No murmur or gallop heard. CHEST EXAMINATION: Lungs reveal diminished air entry to bilateral bases. ABDOMEN: Soft, nontender. Bowel sounds are heard. No organomegaly noted. EXTREMITIES:[ 2+ peripheral pulses with 2-3+ evidence of peripheral pitting edema NEUROLOGIC patient is awake, alert and oriented -3. . - Labs CBC & Chem 7: 05/19/17 06:27 05/19/17 06:27 Labs: Abnormal Lab Results - Last 24 Hours (Table) 05/18/17 05/18/17 05/18/17 Range/Units 06:52 16:25 20:58 WBC (3.8-10.6) k/uL RBC (4.30-5.90) m/uL Hgb (13.0-17.5) gm/dL Hct (39.0-53.0) % Sodium (137-145) mmol/L BUN (9-20) mg/dL Creatinine (0.66-1.25) mg/dL Glucose (74-99) mg/dL POC Glucose (mg/dL) 215 H 207 H (75-99) mg/dL Iron 52 L (65-175) ug/dL Ferritin 443.7 H (22.0-322.0) ng/mL ALT (21-72) U/L Total Protein (6.3-8.2) g/dL Albumin (3.5-5.0) g/dL 05/19/17 05/19/17 05/19/17 Range/Units 06:08 06:27 06:27 WBC 13.3 H (3.8-10.6) k/uL RBC 3.22 L (4.30-5.90) m/uL Hgb 9.2 L (13.0-17.5) gm/dL Hct 27.7 L (39.0-53.0) % Sodium 136 L (137-145) mmol/L BUN 61 H (9-20) mg/dL Creatinine 8.31 H* (0.66-1.25) mg/dL Glucose 236 H (74-99) mg/dL POC Glucose (mg/dL) 257 H (75-99) mg/dL Iron (65-175) ug/dL Ferritin (22.0-322.0) ng/mL ALT 19 L (21-72) U/L Total Protein 5.1 L (6.3-8.2) g/dL Albumin 2.5 L (3.5-5.0) g/dL 05/19/17 Range/Units 11:16 WBC (3.8-10.6) k/uL RBC (4.30-5.90) m/uL Hgb (13.0-17.5) gm/dL Hct (39.0-53.0) % Sodium (137-145) mmol/L BUN (9-20) mg/dL Creatinine (0.66-1.25) mg/dL Glucose (74-99) mg/dL POC Glucose (mg/dL) 149 H (75-99) mg/dL Iron (65-175) ug/dL Ferritin (22.0-322.0) ng/mL ALT (21-72) U/L Total Protein (6.3-8.2) g/dL Albumin (3.5-5.0) g/dL Microbiology - Last 24 Hours (Table) 05/17/17 17:21 Blood Culture - Preliminary Blood No Growth after 24 hours Assessment and Plan Plan: Assessment and plan #1 shortness of breath, secondary to volume overload, secondary to chronic kidney disease #2 chronic kidney disease, stage IV, status post renal transplant #3 hypertension #4 abnormal troponins, likely secondary to abnormal renal function #5 anemia of chronic disease #6 hyperlipidemia #7 diabetes Plan We will review the patient's echocardiogram with Doppler study. Troponin abnormality not suggestive of acute coronary syndrome, likely secondary to abnormal renal function. Blood pressure down to 150/90 post dialysis, we will again check the blood pressure after he receives his antihypertensives. Continue current medications. DNP note has been reviewed, I agree with a documented findings and plan of care. Patient was seen and examined.
--- NOTE | 2017-05-19 12:45 | ECHOF ---
Referral Reason:chf MEASUREMENTS -------- HEIGHT: 162.6 cm WEIGHT: 83.9 kg BP: RVIDd: 2.4 cm (< 3.3) IVSd: 1.6 cm (0.6 - 1.1) LVIDd: 4.3 cm (3.9 - 5.3) LVPWd: 2.1 cm (0.6 - 1.1) IVSs: 1.8 cm LVIDs: 3.5 cm LVPWs: 1.9 cm LA Diam: 4.4 cm (2.7 - 3.8) LAESV Index (A-L): 64.19 ml/m EPSS: 1.1 cm MV E Chidi: 1.03 m/s MV DecT: 91 ms MV A Chidi: 0.59 m/s MV E/A Ratio: 1.72 RAP: 15.00 mmHg RVSP: 78.71 mmHg %FS: 29.79 % EDV(Teich): 84.06 ml EF(Teich): 57.19 % ESV(Teich): 35.99 ml IVSd: 1.84 cm (0.6 - 1.1) IVSs: 2.05 cm LVIDd: 4.32 cm (3.9 - 5.3) LVIDs: 3.03 cm LVPWd: 1.81 cm (0.6 - 1.1) LVPWs: 2.30 cm MV EF SLOPE: 93.07 mm/s (70 - 150) MV EXCURSION: 1.83 cm (> 18.000) SV(Teich): 48.07 ml FINDINGS -------- Sinus rhythm. This was a technically good study. The left ventricular size is normal. There is severe concentric left ventricular hypertrophy. Ove rall left ventricular systolic function is mildly impaired with, an EF between 45 - 50 %. The right ventricle is normal in size. LA is severely dilated >40 ml/m2 The right atrial size is normal. There is mild aortic valve sclerosis. The mitral valve leaflets are mildly thickened. Amewajag-ox-relpup mitral regurgitation is present. Mhfh-hy-ckllhhee tricuspid regurgitation present. There is moderate to severe pulmonary hypertensio n. The right ventricular systolic pressure, as measured by Doppler, is 78.71mmHg. Trace/mild (physiologic) pulmonic regurgitation. There is a small, generalized pericardial effusion present. Small Pleural Effusion. CONCLUSIONS -------- 1. This was a technically good study. 2. The left ventricular size is normal. 3. There is severe concentric left ventricular hypertrophy. 4. Overall left ventricular systolic function is mildly impaired with, an EF between 45 - 50 %. 5. The right ventricle is normal in size. 6. LA is severely dilated >40 ml/m2 7. The right atrial size is normal. 8. There is mild aortic valve sclerosis. 9. The mitral valve leaflets are mildly thickened. 10. Uegwppov-mc-zwhytd mitral regurgitation is present. 11. Erau-wp-eipfjhyh tricuspid regurgitation present. 12. There is moderate to severe pulmonary hypertension. 13. The right ventricular systolic pressure, as measured by Doppler, is 78.71mmHg. 14. Trace/mild (physiologic) pulmonic regurgitation. 15. There is a small, generalized pericardial effusion present. 16. Small Pleural Effusion. [employer]ER: Bhavana Eric RDCS
[2017-05-19 13:51] LABS: Hepatitis B Surface AB- Quant 3.5 mIU/mL
[2017-05-19 14:25] VITALS: BMI 25.2
[2017-05-19 16:28] LABS: Glucose,Whole Blood 179 mg/dL (75-99)
[2017-05-19] MEDS: REPAGLINIDE 1 MG TAB PO SCH (18:13)
--- NOTE | 2017-05-19 19:26 | PN ---
PROGRESS NOTE DATE OF SERVICE: 05/19/2017. PRESENTING COMPLAINT: Short of breath, edema. INTERVAL HISTORY: This is a patient with renal transplant and worsening renal function, now stage V, who presented with severe edema, pulmonary edema. Patient had 3 L of fluid removed today and another Doherty, planned to be out for dialysis today. Shortness of breath is a little bit better, edema slightly improved. Did tolerate a diet. Weak and tired. REVIEW OF SYSTEMS: Done for constitutional, cardiovascular, GI, pulmonary; relevant findings as above. CURRENT MEDICATIONS: Reviewed. They include: 1. DuoNeb. 2. Coreg. 3. Aranesp. 4. Hydralazine. 5. CellCept. 6. Sodium bicarb. PHYSICAL EXAMINATION: Temperature 97.2, pulse 76, respiration 16, blood pressure 166/95, pulse ox 94% on room air. GENERAL APPEARANCE: Sitting up, tired-appearing. EYES: Pupils equal. Conjunctivae normal. HEENT: External appearance of nose and ears normal. Oral cavity normal. NECK: JVD unable to assess. Mass not palpable. RESPIRATORY: Effort increased. LUNGS: Decreased breath sounds. CARDIOVASCULAR: First and second sounds normal. Some decrease in edema. ABDOMEN: Soft, nontender. Liver and spleen not palpable. PSYCHIATRY: Alert and oriented x3. Mood and affect normal. EXTREMITIES: Left arm has a graft. INVESTIGATIONS: White count 13.3, hemoglobin 9.2, potassium 3.5, BUN 61, creatinine 8.31. Accu-Cheks are noted. Two-D echocardiogram shows severe concentric left ventricular hypertrophy, EF 40% to 45%, moderate to severe mitral regurgitation, moderate to severe pulmonary hypertension. ASSESSMENT: 1. Acute pulmonary edema secondary to fluid overload from worsening renal failure. 2. Chronic obstructive pulmonary disease in a current smoker. 3. Chronic nicotine dependence. Patient is a long-standing smoker. 4. Diabetes mellitus,type 2, on oral hypoglycemic. 5. Hypertensive urgency on presentation, improving. 6. Chronic kidney disease, stage V. 7. 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 8. Metabolic acidosis secondary to renal failure. 9. Anemia secondary to chronic kidney disease. 10.Moderate to severe mitral regurgitation, non-rheumatic. 11.Severe secondary pulmonary hypertension secondary to chronic obstructive pulmonary disease. 12.Hypertensive heart disease. 13.Acute on chronic congestive heart failure exacerbation from systolic and diastolic dysfunction, ejection fraction 45%. PLAN: Patient will get hemodialyzed dialyzed today and also get hemodialyzed tomorrow. Blood pressure is getting better controlled. Care was discussed with the patient. Will follow. SHENG / SIVAN: [id number] /
[2017-05-19] MEDS: ATORVASTATIN 20 MG TAB PO SCH (21:35)
[2017-05-19 21:39] LABS: Glucose,Whole Blood 190 mg/dL (75-99)
[2017-05-20] MEDS: FUROSEMIDE 10 MG/ML 10 ML VIAL IV SCH ×2 (04:21→12:05)
[2017-05-20 05:52] LABS: Glucose,Whole Blood 131 mg/dL (75-99)
[2017-05-20 06:15] VITALS: RESP 16
[2017-05-20] MEDS: PANTOPRAZOLE 40 MG TABLET PO SCH (06:18)
[2017-05-20] MEDS: INSULIN ASPART 100 UNIT/ML 1 ML 10 ML VIAL SQ SCH ×3 (06:18→18:56)
[2017-05-20] MEDS: CARVEDILOL 12.5 MG TAB PO SCH ×2 (06:18→18:55)
[2017-05-20 07:37] LABS: Calcium 8.5 mg/dL (8.4-10.2); Phosphorus 4.2 mg/dL (2.5-4.5)
[2017-05-20 07:41] LABS: Potassium 3.1 mmol/L (3.5-5.1)
[2017-05-20] MEDS: NICOTINE 21MG/24HR PATCH TRANSDERM SCH (09:01)
[2017-05-20] MEDS: ASPIRIN 325 MG TAB PO SCH (09:02)
[2017-05-20] MEDS: CALCITRIOL 0.25 MCG CAP PO SCH (09:02)
[2017-05-20] MEDS: ENOXAPARIN 30 MG/0.3 ML SYRINGE SQ SCH (09:02)
[2017-05-20] MEDS: amLODIPine 10 MG TAB PO SCH (09:02)
[2017-05-20] MEDS: MYCOPHENOLATE MOFETIL 500 MG TAB PO SCH ×2 (09:02→18:56)
[2017-05-20] MEDS: hydrALAZINE HCL 50 MG TAB PO SCH ×2 (09:02→18:55)
[2017-05-20] MEDS: TACROLIMUS 1 MG CAP PO SCH (09:03)
[2017-05-20] MEDS: predniSONE 5 MG TAB PO SCH (09:03)
[2017-05-20] MEDS: SODIUM BICARBONATE TAB 650 MG TAB PO SCH (09:03)
[2017-05-20] MEDS ORDERED: POTASSIUM CHLORIDE ER 20 MEQ TAB.ER PO STA (09:04)
[2017-05-20] MEDS: IPRATROPIUM-ALBUTEROL 3 ML NEB INHALATION SCH ×3 (09:07→16:19)
[2017-05-20] MEDS ORDERED: SODIUM BICARBONATE TAB 650 MG TAB PO SCH (09:15)
[2017-05-20 09:39] LABS: Magnesium 1.8 mg/dL (1.6-2.3)
--- NOTE | 2017-05-20 09:44 | P.PN ---
Subjective Patient is seen in follow-up for progressive chronic kidney disease/allograft failure. Patient now has chronic kidney disease stage V and was started on hemodialysis May 18. Patient still has edema but significantly improved since admission. Blood pressure is better controlled. He underwent second treatment of hemodialysis yesterday and had near 3 L ultrafiltration. Denies chest pain or shortness of breath. Vital signs are stable. General: The patient appeared well nourished and normally developed. HEENT: Head exam is unremarkable. Neck is without jugular venous distension. LUNGS: Lungs are clear to auscultation and percussion. Breath sounds decreased. HEART: Rate and Rhythm are regular. First and second heart sounds normal. No murmurs, rubs or gallops. ABDOMEN: Abdominal exam reveals normal bowel sounds. Non-tender and non- distended. No evidence of peritonitis. EXTREMITITES: 1+ edema. Objective - Vital Signs Vital signs: Vital Signs Temp 98.1 F 05/20/17 08:00 Pulse 88 05/20/17 08:00 Resp 16 05/20/17 08:00 BP 123/70 05/20/17 08:00 Pulse Ox 92 L 05/20/17 08:00 Intake & Output 05/19/17 05/20/17 05/20/17 18:59 06:59 18:59 Intake Total 922 120 Output Total 720 Balance 922 -720 120 Weight 82.3 kg 79.3 kg Intake: Intake, IV Titration 100 Amount Sodium Ferric Gluconat- 100 Sucrose 125 mg In Sodium Chloride 0.9% 100 ml @ 100 mls/hr IVPB DAILY [facility] Rx#:[id number] Oral 822 120 Output: Urine 720 Other: Voiding Method Urinal # Voids 1 - Labs CBC & Chem 7: 05/19/17 06:27 05/20/17 06:50 Labs: Abnormal Lab Results - Last 24 Hours (Table) 05/19/17 05/19/17 05/19/17 Range/Units 11:16 16:25 21:37 Potassium (3.5-5.1) mmol/L BUN (9-20) mg/dL Creatinine (0.66-1.25) mg/dL Glucose (74-99) mg/dL POC Glucose (mg/dL) 149 H 179 H 190 H (75-99) mg/dL 03/29/18 03/29/18 Range/Units 05:50 06:50 Potassium 3.1 L (3.5-5.1) mmol/L BUN 49 H (9-20) mg/dL Creatinine 6.50 H* (0.66-1.25) mg/dL Glucose 111 H (74-99) mg/dL POC Glucose (mg/dL) 131 H (75-99) mg/dL Microbiology - Last 24 Hours (Table) 05/17/17 17:21 Blood Culture - Preliminary Blood No Growth after 48 hours Assessment and Plan Plan: Assessment: #1. Status post donor renal allograft in 2007 with significant interstitial fibrosis and tubular atrophy. He had a kidney biopsy in February 2017 which revealed chronic changes with plans to initiate renal replacement therapy. #2. Chronic kidney disease stage V started on hemodialysis this admission. First treatment was on May 18.. He's had episodes of rejections in the past. #3. Volume overload secondary to chronic kidney disease. Improved with ultrafiltration. #4. Hypertension with chronic kidney disease. Partially volume sensitive. Better controlled now. #5. Metabolic acidosis secondary to chronic kidney disease. Improved postdialysis. #6. Anemia of chronic kidney disease. Iron deficiency noted. #7. Hyperphosphatemia secondary to chronic kidney disease. Expect improvement postdialysis - now in the normal range. #8. Hypokalemia from IV diuresis. Plan: Third treatment of hemodialysis today with goal 3-4 L ultrafiltration. Ferrlecit 125 mg IV daily for 3 days. Second dose today. Maintain Aranesp. Maintain current antihypertensives and IV Lasix. Decrease sodium bicarbonate 650 mg twice daily. Dose of CellCept decreased to 500 mg twice daily this admission. Continue with Prograf 2 mg twice daily and prednisone 5 mg daily. Maintain Lasix 80 mg IV every 8 hours. He already has outpatient hemodialysis set up for a Wednesday schedule 1st shift. Stable to be discharged home from nephrology standpoint. He can get dialysis tomorrow as an outpatient and then resume on a Wednesday schedule. Replace potassium. 40 mg once today.
[2017-05-20] MEDS: SODIUM FERRIC GLUCONAT-SUCROSE 125 MG in SODIUM CHLORIDE 0.9% 100 ML IVPB SCH (10:16)
[2017-05-20 11:49] LABS: Glucose,Whole Blood 163 mg/dL (75-99)
[2017-05-20 12:11] VITALS: PULSE 91
--- NOTE | 2017-05-20 13:42 | P.PN ---
Subjective Progress Note Date: 05/20/17 Principal diagnosis: Shortness of breath This is a 62-year-old gentleman with history of end-stage renal disease, status post prior transplant, who developed recurrence of his renal failure, presented to the hospital complaining of shortness of breath and increase in bilateral peripheral edema. Patient also has history of hypertension, diabetes, COPD, hepatitis C. Patient was seen in consultation by Dr. Canela yesterday. Patient was noted to be quite hypertensive yesterday and medication adjustments were made. He was also noted to have a mild abnormality in his troponin which was felt to be secondary to renal failure. An echocardiogram with Doppler study was performed which as yet pending. Blood cultures did not reveal any growth. At the time of my examination this morning, patient is currently undergoing dialysis. Blood pressure 166/90 with a heart rate in the 70s, temperature 97.2. White blood cell count 13.3, hemoglobin 9.2, platelet count 212. Sodium 136, potassium 3.5, BUN 61, creatinine 8.3. 05/20/2017 Patient seen and examined this morning, edema continues to improve. Scheduled again for dialysis today. Hemodynamically stable. Objective - Vital Signs Vital signs: Vital Signs Temp 98.0 F 05/20/17 12:00 Pulse 91 05/20/17 12:00 Resp 16 05/20/17 12:00 BP 135/72 05/20/17 12:00 Pulse Ox 91 L 05/20/17 12:00 Intake & Output 05/19/17 05/20/17 05/20/17 18:59 06:59 18:59 Intake Total 922 120 Output Total 720 Balance 922 -720 120 Weight 82.3 kg 79.3 kg Intake: Intake, IV Titration 100 Amount Sodium Ferric Gluconat- 100 Sucrose 125 mg In Sodium Chloride 0.9% 100 ml @ 100 mls/hr IVPB DAILY [facility] Rx#:[id number] Oral 822 120 Output: Urine 720 Other: Voiding Method Urinal # Voids 1 - Exam PHYSICAL EXAMINATION: HEENT: Head is atraumatic, normocephalic. Pupils equal, round. Neck is supple. There is no elevated jugular venous pressure. HEART EXAMINATION: Heart S1, S2 normal. No murmur or gallop heard. CHEST EXAMINATION: Lungs reveal diminished air entry to bilateral bases. ABDOMEN: Soft, nontender. Bowel sounds are heard. No organomegaly noted. EXTREMITIES:[ 2+ peripheral pulses with 2-3+ evidence of peripheral pitting edema NEUROLOGIC patient is awake, alert and oriented -3. . - Labs CBC & Chem 7: 05/19/17 06:27 05/20/17 06:50 Labs: Abnormal Lab Results - Last 24 Hours (Table) 05/19/17 05/19/17 05/20/17 Range/Units 16:25 21:37 05:50 Potassium (3.5-5.1) mmol/L BUN (9-20) mg/dL Creatinine (0.66-1.25) mg/dL Glucose (74-99) mg/dL POC Glucose (mg/dL) 179 H 190 H 131 H (75-99) mg/dL 05/20/17 05/20/17 Range/Units 06:50 11:45 Potassium 3.1 L (3.5-5.1) mmol/L BUN 49 H (9-20) mg/dL Creatinine 6.50 H* (0.66-1.25) mg/dL Glucose 111 H (74-99) mg/dL POC Glucose (mg/dL) 163 H (75-99) mg/dL Microbiology - Last 24 Hours (Table) 05/17/17 17:21 Blood Culture - Preliminary Blood No Growth after 48 hours Assessment and Plan Plan: Assessment and plan #1 shortness of breath, secondary to volume overload, secondary to chronic kidney disease #2 chronic kidney disease, stage IV, status post renal transplant #3 hypertension #4 abnormal troponins, likely secondary to abnormal renal function #5 anemia of chronic disease #6 hyperlipidemia #7 diabetes Plan Echocardiogram with Doppler study revealed an ejection fraction of 45-50%. Moderate to severe mitral regurg, moderate tricuspid regurg. Lasix being managed by her nephew. Nephrology has also cleared the patient to go from their perspective, outpatient dialysis has been scheduled. From cardiology standpoint, patient may also be able to be discharged home once cleared by primary. We will follow him now here on an as-needed basis only, please don't hesitate to call with any questions. DNP note has been reviewed, I agree with a documented findings and plan of care. Patient was seen and examined.
[2017-05-20 16:41] VITALS: BP 133/73; TEMP 98.2
[2017-05-20 17:07] LABS: Glucose,Whole Blood 179 mg/dL (75-99)
[2017-05-20] MEDS: REPAGLINIDE 1 MG TAB PO SCH (18:55)
--- NOTE | 2017-05-21 09:18 | DS ---
DISCHARGE SUMMARY DATE OF ADMISSION: 05/17/2017 DATE OF DISCHARGE: 05/20/2017 FINAL DIAGNOSES: 1. Acute pulmonary edema secondary to fluid overload from worsening renal failure. 2. Chronic obstructive pulmonary disease in a current smoker. 3. Chronic nicotine dependence, patient is a long-standing smoker. 4. Diabetes mellitus type 2, on oral hypoglycemic. 5. Hypertensive urgency on presentation. 6. Chronic. 7. Status post diseased donor renal allograft in 2008 with significant interstitial fibrosis and tubular atrophy with biopsy in 2018 showing chronic changes. 8. Metabolic acidosis secondary to renal failure. 9. Anemia secondary to chronic kidney disease. 10.Moderate to severe mitral regurgitation, nonrheumatic. 11.Severe secondary pulmonary hypertension secondary to chronic obstructive pulmonary disease. 12.Hypertensive heart disease. 13.Acute on chronic congestive heart failure exacerbation from systolic and diastolic dysfunction EF 45%. HOSPITAL COURSE: This patient was not doing well with renal transplant, presented with pulmonary edema. Patient already scheduled to start his hemodialysis. Symptoms became chronic including pulmonary edema, lot of edema, blood pressure control. The patient did get hemodialysis [id number] for 3 days, including today. Edema has gone down, breathing is much better, blood pressure is much better controlled. Last set of blood pressure is 133/73. PHYSICAL EXAM: LUNGS: Decreased breath sounds, edema is present. PSYCH: AO x3. Patient is counseled against smoking. CONSULTATION: 1. Dr. Farhad Canela from Cardiology. 2. Dr. Sosa from Pulmonary. DISCHARGE MEDICATIONS: 1. Lipitor 20 mg q.h.s. 2. Norvasc 10 mg p.o. daily. 3. Prandin 0.5 mg with supper. 4. Prograf 2 mg p.o. b.i.d. 5. Calcitriol 0.25 mcg p.o. daily. 6. Coreg 25 mg p.o. b.i.d. 7. Prilosec 20 mg p.o. daily. 8. Glucophage 500 mg p.o. b.i.d. 9. Ventolin HFA 1 or 2 puffs q.6 p.r.n. 10.Aricept 40 mg subcu once weekly. 11.Atrovent HFA 2 puffs q.i.d. 12.CellCept 500 mg p.o. b.i.d. 13.Nicotine patch. 14.Sodium bicarb 65 mg p.o. b.i.d. 15.Hydralazine 50 mg p.o. t.i.d. Follow up with Dr. Velasquez in 3 days. Patient to keep his hemodialysis scheduled Wednesday, , and Wednesday. Patient will have another dialysis scheduled tomorrow as per Dr. Sosa. I discussed with Dr. Bianchi today and also, the patient discharge planning more than 35 minutes. SHENG / LAZN: [id number] /
--- NOTE | 2017-06-08 12:19 | CDI ---
Last Revision, January 2017 Documentation Clarification Form Date: 06/08/17 From: Loretta Valencia Phone: If you have a question regarding this query, please contact Ana Brewster at [phone] between 8am and 5pm Admit Date: 05/17/2017 7:07:00 PM Patient Name: Marlena Guillermo Visit Number: [id number] Discharge Date: 05/20/17 ATTENTION: The Clinical Documentation Specialists (CDI) and [facility] Coding Staff appreciate your assistance in clarifying documentation. Please respond to the clarification below the line at the bottom and electronically sign. The CDI & [facility] Coding staff will review the response and follow-up if needed. Please note: Queries are made part of the Legal Health Record. If you have any questions, please contact the author of this message via ITS. Dr. Luis Felipe Powell Acute kidney injury was documented in the ED note. History/Risk Factors: Patient has a history of renal transplant 10 years ago secondary to Hepatitis C. Dr. Sosa documented that the patient had a kidney biopsy in February of 2017 which revealed chronic changes with plans to inititate renal replacement therapy. The patient was admitted due to fluid overload. Patients baseline BUN/CR/GFR: 67/10.12/5 Clinical Indicators: Curent BUN/Cr/GFR : 67/10.12/5 Transplant status, Kidney transplant in 2007 with episodes of rejections in the past. Hemodialysis status: The patient is planned to initiate hemodialysis Treatment: Hemodialysis, IV Lasix Consults: Dr. Sosa documented fluid overload secondary to chronic kidney disease. In order to capture the severity of condition, please clarify if the condition signifies: Acute renal failure, Please specify etiology (if known): Cortical Necrosis Medullary Necrosis Tubular Necrosis Acute kidney injury Failure of transplanted kidney Other please specify Unable to determine MTDD
--- NOTE | 2017-06-14 08:21 | CDI ---
Last Revision, January 2017 Documentation Clarification Form Date: 06/14/17 From: Loretta Valencia Phone: If you have a question regarding this query, please contact Ana Brewster at [phone]. Admit Date: 05/17/2017 7:07:00 PM Patient Name: Marlena Guillermo Visit Number: [id number] Discharge Date: ATTENTION: The Clinical Documentation Specialists (CDI) and [facility] Coding Staff appreciate your assistance in clarifying documentation. Please respond to the clarification below the line at the bottom and electronically sign. The CDI & [facility] Coding staff will review the response and follow-up if needed. Please note: Queries are made part of the Legal Health Record. If you have any questions, please contact the author of this message via ITS. Dr. Luis Felipe Powell Acute kidney injury was documented in the ED note. History/Risk Factors: Patient has a history of renal transplant 10 years ago secondary to Hepatitis C. Dr. Sosa documented that the patient had a kidney biopsy in February of 2017 which revealed chronic changes with plans to inititate renal replacement therapy. The patient was admitted due to fluid overload. Patients baseline BUN/CR/GFR: 67/10.12/5 Clinical Indicators: Curent BUN/Cr/GFR : 67/10.12/5 Transplant status, Kidney transplant in 2007 with episodes of rejections in the past. Hemodialysis status: The patient is planned to initiate hemodialysis Treatment: Hemodialysis, IV Lasix Consults: Dr. Sosa documented fluid overload secondary to chronic kidney disease. In order to capture the severity of condition, please clarify if the condition signifies: Acute renal failure, Please specify etiology (if known): Cortical Necrosis Medullary Necrosis Tubular Necrosis Acute kidney injury Failure of transplanted kidney CKD(please specify stage) Other please specify Unable to determine NO acute kidney injury/renal failure MTDD
--- NOTE | 2017-06-16 17:59 | CDI ---
Last Revision, January 2017 Documentation Clarification Form Date: 06/16/14 From: Loretta Valencia Phone: If you have a question regarding this query, please contact Ana Brewster at [phone] between 8am and 5pm Admit Date: 05/17/2017 7:07:00 PM Patient Name: Marlena Guillermo Visit Number: [id number] Discharge Date: 05/20/17 ATTENTION: The Clinical Documentation Specialists (CDI) and [facility] Coding Staff appreciate your assistance in clarifying documentation. Please respond to the clarification below the line at the bottom and electronically sign. The CDI & [facility] Coding staff will review the response and follow-up if needed. Please note: Queries are made part of the Legal Health Record. If you have any questions, please contact the author of this message via ITS. Dr. Efra Sosa Acute kidney injury was documented in the ED note. History/Risk Factors: Patient has a history of renal transplant 10 years ago secondary to Hepatitis C. Dr. Sosa documented that the patient had a kidney biopsy in February of 2017 which revealed chronic changes with plans to inititate renal replacement therapy. The patient was admitted due to fluid overload. Patients baseline BUN/CR/GFR: 67/10.12/5 Clinical Indicators: Curent BUN/Cr/GFR : 67/10.12/5 Transplant status, Kidney transplant in 2007 with episodes of rejections in the past. Hemodialysis status: The patient is planned to initiate hemodialysis Treatment: Hemodialysis, IV Lasix Consults: Dr. Sosa documented fluid overload secondary to chronic kidney disease. In order to capture the severity of condition, please clarify if the condition signifies: Acute renal failure, Please specify etiology (if known): Acute kidney injury Failure of transplanted kidney CKD(please specify stage) Other please specify Unable to determine MTDD
--- NOTE | 2017-06-23 09:39 | CDI ---
Last Revision, January 2017 Documentation Clarification Form Date: 06/23/17 From: Loretta Valencia Phone: If you have a question regarding this query, please contact Ana Brewster at [phone] between 8am and 5pm. Admit Date: 05/17/2017 7:07:00 PM Patient Name: Marlena Guillermo Visit Number: [id number] Discharge Date: 05/20/17 ATTENTION: The Clinical Documentation Specialists (CDI) and [facility] Coding Staff appreciate your assistance in clarifying documentation. Please respond to the clarification below the line at the bottom and electronically sign. The CDI & [facility] Coding staff will review the response and follow-up if needed. Please note: Queries are made part of the Legal Health Record. If you have any questions, please contact the author of this message via ITS. Dr. Efra Sosa Acute kidney injury was documented in the ED note. History/Risk Factors: Patient has a history of renal transplant 10 years ago secondary to Hepatitis C. Dr. Sosa documented that the patient had a kidney biopsy in February of 2017 which revealed chronic changes with plans to inititate renal replacement therapy. The patient was admitted due to fluid overload. Patients baseline BUN/CR/GFR: 67/10.12/5 Clinical Indicators: Curent BUN/Cr/GFR : 67/10.12/5 Transplant status, Kidney transplant in 2007 with episodes of rejections in the past. Hemodialysis status: The patient is planned to initiate hemodialysis Treatment: Hemodialysis, IV Lasix Consults: Dr. Sosa documented fluid overload secondary to chronic kidney disease. In order to capture the severity of condition, please clarify if the condition signifies: Acute renal failure, Please specify etiology (if known): Cortical Necrosis Medullary Necrosis Tubular Necrosis Acute kidney injury Failure of transplanted kidney CKD(please specify stage) Other please specify Unable to determine failure of transplanted kidney MTDD
== END 2017-05-20 20:27 | disposition home or self-care (01) | DRG 698 ==
LOC: EC 17:02 → 6SEL 19:07
PROVIDERS: ADMIT Hospitalist; ATTEND Hospitalist
PROC: 5A1D70Z Performance of Urinary Filtration, Intermittent, Less than 6 Hours Per Day (ICD-10-PCS; principal; 2017-05-18)
DX: T86.12 Kidney transplant failure (principal); I50.23 Acute on chronic systolic (congestive) heart failure; I13.2 Hypertensive heart and chronic kidney disease with heart failure and with stage 5 chronic kidney disease, or end stage renal disease; N18.5 Chronic kidney disease, stage 5; E87.2 Acidosis; Z94.0 Kidney transplant status; E11.22 Type 2 diabetes mellitus with diabetic chronic kidney disease; E83.39 Other disorders of phosphorus metabolism; I27.29 Other secondary pulmonary hypertension; F17.210 Nicotine dependence, cigarettes, uncomplicated; I16.0 Hypertensive urgency; D63.1 Anemia in chronic kidney disease; E78.5 Hyperlipidemia, unspecified; E87.6 Hypokalemia; I34.0 Nonrheumatic mitral (valve) insufficiency; J44.9 Chronic obstructive pulmonary disease, unspecified; B19.20 Unspecified viral hepatitis C without hepatic coma; R25.1 Tremor, unspecified; R74.8 Abnormal levels of other serum enzymes; T48.6X5A Adverse effect of antiasthmatics, initial encounter; T50.2X5A Adverse effect of carbonic-anhydrase inhibitors, benzothiadiazides and other diuretics, initial encounter; Z79.84 Long term (current) use of oral hypoglycemic drugs; Z79.899 Other long term (current) drug therapy; Z71.6 Tobacco abuse counseling; Y92.239 Unspecified place in hospital as the place of occurrence of the external cause
CPT/HCPCS: 36415; 71046; 80048; 80053; 81001; 82550; 82553; 82728; 83540; 83550; 83735; 83880; 84100; 84484; 85025; 85027; 85610; 85730; 86706; 87040; 87340; 90935; 93005; 93306; 94640; 94644; 96365; 96366; 96375; 96376; 99285

== ENCOUNTER → 2017-06-04 | Outpatient (CLI) | payer MEDICARE, OTHER ==
[2017-06-07 14:38] LABS: Hepatits C Virus RNA Not detected (Not detected); Hepatits C Virus RNA, Quant <12 IU/mL (<12); LOG HCV IU/mL <1.08 (<1.08)
== END | disposition home or self-care (01) ==
LOC: LABWHC1 14:42
PROVIDERS: ATTEND Internal Medicine Infectious Disease
DX: B18.2 Chronic viral hepatitis C (principal)
CPT/HCPCS: 36415; 87522

== ENCOUNTER 2017-07-22 02:06 | Emergency (ER) | payer MEDICARE, OTHER ==
[2017-07-22 06:56] LABS: Albumin 3.5 g/dL (3.5-5.0); Calcium 9.5 mg/dL (8.4-10.2); Total Bilirubin 0.3 mg/dL (0.2-1.3); Total Protein 5.8 g/dL (6.3-8.2)
[2017-07-22 07:21] LABS: Basophils % (A) 0 %; Eosinophils # (A) 0.1 k/uL (0-0.7); Eosinophils % (A) 2 %; HCT 29.1 % (39.0-53.0); HGB 9.3 gm/dL (13.0-17.5); Lymphocytes # (A) 1.8 k/uL (1.0-4.8); Lymphocytes % (A) 33 %; MCH 28.9 pg (25.0-35.0); MCHC 31.9 g/dL (31.0-37.0); MCV 90.4 fL (80.0-100.0); Mean Platelet Volume 8.8; Monocytes # (A) 0.4 k/uL (0-1.0); Monocytes % (A) 7 %; Neutrophils % (A) 55 %; Platelet Count 152 k/uL (150-450); RBC 3.22 m/uL (4.30-5.90); RDW 14.4 % (11.5-15.5); WBC 5.4 k/uL (3.8-10.6)
== END 2017-07-22 05:28 | disposition home or self-care (01) ==
LOC: EC 02:06
DX: E11.40 Type 2 diabetes mellitus with diabetic neuropathy, unspecified (principal); I12.9 Hypertensive chronic kidney disease with stage 1 through stage 4 chronic kidney disease, or unspecified chronic kidney disease; E11.22 Type 2 diabetes mellitus with diabetic chronic kidney disease; N18.9 Chronic kidney disease, unspecified; Z79.899 Other long term (current) drug therapy; Z99.2 Dependence on renal dialysis
CPT/HCPCS: 36415; 80053; 85025; 99283

== ENCOUNTER 2017-07-22 09:35 | Inpatient (IN) | payer MEDICARE, OTHER ==
[2017-07-22 10:03] LABS: Basophils % (A) 0 %; Eosinophils # (A) 0.1 k/uL (0-0.7); Eosinophils % (A) 3 %; HCT 30.9 % (39.0-53.0); HGB 10.2 gm/dL (13.0-17.5); Lymphocytes # (A) 1.3 k/uL (1.0-4.8); Lymphocytes % (A) 27 %; MCH 29.4 pg (25.0-35.0); Mean Platelet Volume 8.1; Monocytes # (A) 0.3 k/uL (0-1.0); Monocytes % (A) 6 %; Neutrophils % (A) 62 %; Platelet Count 147 k/uL (150-450); RBC 3.48 m/uL (4.30-5.90); RDW 14.4 % (11.5-15.5); WBC 4.8 k/uL (3.8-10.6)
[2017-07-22] MEDS ORDERED: CARVEDILOL 12.5 MG TAB PO STA (10:05)
[2017-07-22 10:12] LABS: INR 1.1 (<1.2); Partial Thromboplastin Time 24.3 sec (22.0-30.0); Prothrombin Time 10.8 sec (9.0-12.0)
--- NOTE | 2017-07-22 10:12 | XR ---
EXAMINATION TYPE: XR chest 2V DATE OF EXAM: 07/22/2017 COMPARISON: 05/17/2017 INDICATION: Chest pain, shortness of breath during dialysis TECHNIQUE: Frontal and lateral views of the chest are obtained. FINDINGS: The heart size is normal. The pulmonary vasculature is normal. The lungs are clear. Previous pleural effusions and infiltrates have resolved. IMPRESSION: 1. No acute pulmonary process.
[2017-07-22 10:15] LABS: Albumin 3.9 g/dL (3.5-5.0); Calcium 8.2 mg/dL (8.4-10.2); Magnesium 2.1 mg/dL (1.6-2.3); Total Bilirubin 0.3 mg/dL (0.2-1.3); Total Protein 6.7 g/dL (6.3-8.2)
--- NOTE | 2017-07-22 10:15 | ED ---
Chest Pain HPI - General Chief Complaint: Chest Pain Stated Complaint: ABDOMINAL PAIN Time Seen by Provider: 07/22/17 09:43 Source: patient, EMS, RN notes reviewed Mode of arrival: EMS Limitations: no limitations - History of Present Illness Initial Comments: This is a 62-year-old male presents emergency department via EMS chief complaint of chest pain. Patient states she's developed chest pain around 9 AM while at dialysis. Patient states he had been on dialysis for a few hours. Patient states he feels a pressure on the left side of his chest. He's had no prior myocardial infarctions. Patient states that he does a history of A. fib and hypertension. Patient is also renal transplant on dialysis. Patient states he has not taken his medications this morning. Patient denies any shortness of breath, nausea, vomiting diarrhea constipation. Patient denies any fevers or chills. Patient denies any prior cardiac caths she has had a stress test in the past. - Related Data Home Medications Medication Instructions Recorded Confirmed amLODIPine [Norvasc] 10 mg PO DAILY 06/23/16 07/22/17 Tacrolimus [Prograf] 2 mg PO BID 02/25/17 07/22/17 Carvedilol [Coreg] 25 mg PO BID 05/17/17 07/22/17 metFORMIN HCL [Glucophage] 500 mg PO BID 05/17/17 07/22/17 Previous Rx's Medication Instructions Recorded Darbepoetin Rambo [Aranesp] 40 mcg SQ Q7D syringe 05/20/17 Mycophenolate Mofetil [Cellcept] 500 mg PO BID #0 05/20/17 Sodium Bicarbonate Tab 650 mg PO BID #60 tab 05/20/17 hydrALAZINE HCL [Apresoline] 50 mg PO TID #90 tab 05/20/17 Allergies Allergy/AdvReac Type Severity Reaction Status Date / Time No Known Allergies Allergy Verified 07/22/17 09:57 Review of Systems ROS Statement: Those systems with pertinent positive or pertinent negative responses have been documented in the HPI. ROS Other: All systems not noted in ROS Statement are negative. EKG Findings - EKG Comments: EKG Findings:: EKG performed at 9:44. 93, NH 140 QRS 94 QT/QTC 386/479 is a left axis deviation, nonspecific T-wave inversion prolonged QT Past Medical History Past Medical History: Chest Pain / Angina, COPD, Diabetes Mellitus, Hyperlipidemia, Hypertension, Renal Disease Additional Past Medical History / Comment(s): Hepatitis C, History of Any Multi-Drug Resistant Organisms: None Reported Additional Past Surgical History / Comment(s): Kidney transplant in past. had bx of transplanted kidney at [facility] in may 2016-was started on steriod therapy. Past Anesthesia/Blood Transfusion Reactions: No Reported Reaction Past Psychological History: No Psychological Hx Reported Smoking Status: Former smoker Past Alcohol Use History: None Reported Past Drug Use History: None Reported - Past Family History Father Family Medical History: Cancer Mother Family Medical History: No Reported History General Exam Limitations: no limitations Course Vital Signs 07/22/17 07/22/17 07/22/17 09:44 10:15 11:15 Temperature 98.3 F Pulse Rate 109 H 87 87 Respiratory 22 20 20 Rate Blood Pressure 176/102 187/114 167/97 O2 Sat by Pulse 100 99 99 Oximetry Disposition Clinical Impression: Chest pain Disposition: ADMITTED IP TO THIS [facility] Condition: Stable Referrals: Trav Velasquez MD [Primary Care Provider] - 1-2 days
[2017-07-22 10:43] LABS: Creatine Kinase MB 0.4 ng/mL (0.0-2.4)
[2017-07-22 10:48] LABS: Troponin I 0.055 ng/mL (0.000-0.034)
[2017-07-22] MEDS ORDERED: HEPARIN SODIUM,PORCINE 5,000 UNIT/ML 1 ML VIAL IV ONE (11:37)
[2017-07-22] MEDS ORDERED: NITROGLYCERIN SL TABS 0.4 MG TAB SUBLINGUAL PRN (11:37)
[2017-07-22] MEDS ORDERED: HEPARIN SODIUM,PORCINE/D5W PMX 25,000 UNIT in DEXTROSE/WATER 1 500ML.BAG IV SCH (11:45)
[2017-07-22] MEDS: SODIUM CHLORIDE 0.9% 500 ML IV SCH (13:38)
[2017-07-22 16:02] LABS: Creatine Kinase MB 0.5 ng/mL (0.0-2.4); Troponin I 0.041 ng/mL (0.000-0.034)
[2017-07-22 20:20] LABS: Glucose,Whole Blood 109 mg/dL (75-99)
[2017-07-22] MEDS ORDERED: ONDANSETRON 4 MG/2 ML VIAL IVP PRN (20:50)
[2017-07-22] MEDS ORDERED: POTASSIUM CHLORIDE ER 20 MEQ TAB.ER PO STA (20:50)
[2017-07-22] MEDS: TACROLIMUS 1 MG CAP PO SCH (21:02)
[2017-07-22] MEDS: MYCOPHENOLATE MOFETIL 250 MG CAP PO SCH (21:03)
[2017-07-22] MEDS: SODIUM BICARBONATE TAB 650 MG TAB PO SCH (21:03)
[2017-07-22] MEDS: hydrALAZINE HCL 50 MG TAB PO SCH (21:03)
[2017-07-22 21:50] LABS: Creatine Kinase MB 0.3 ng/mL (0.0-2.4); Troponin I 0.047 ng/mL (0.000-0.034)
--- NOTE | 2017-07-22 23:56 | HP ---
HISTORY AND PHYSICAL DATE OF ADMISSION: 07/22/2017. DATE OF SERVICE: 07/22/2017 PRESENTING COMPLAINT: Chest pain. HISTORY OF PRESENTING COMPLAINT: This is a pleasant 62-year-old patient who follows with Dr. Velasquez. Chronic stable medical conditions include COPD, diabetes, hypertension, hyperlipidemia, end-stage kidney disease on hemodialysis. The patient had a kidney transplant secondary to hepatitis C over 10 years ago at [facility] and patient did lose renal function and patient started on dialysis in April of this year. The patient today was getting hemodialysis when he noticed chest pressure going across the chest, lasted for about half an hour to 1 hour. There was no radiation, no dizziness, no lightheadedness, no nausea. The patient was slightly short of breath. The patient does make urine. Appetite has been fair. Patient is admitted with diagnosis of unstable angina. REVIEW OF SYSTEMS: CONSTITUTIONAL: Tired. HEENT: None. RESPIRATORY: As above. CARDIOVASCULAR: As above. GASTROINTESTINAL: None. GENITOURINARY: None. MUSCULOSKELETAL: None. DERMATOLOGICAL: None. HEMATOLOGICAL: None. LYMPHATIC: None. PSYCHIATRY: None. NEUROLOGICAL: None. 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 PAST SURGICAL HISTORY: Renal transplant [facility] 2007, left arm fistula for hemodialysis. SOCIAL HISTORY: The patient lives on the 2nd floor, uses a walking stick, has been smoking since 1970, down to few cigarettes a day. Alcohol: None. FAMILY HISTORY: Father had cancer, type unknown. HOME MEDICATIONS: 1. Hydralazine 50 mg p.o. t.i.d. 2. Aranesp 50 mcg subcu every 7 days. 3. Glucophage 100 mg p.o. b.i.d. 4. Norvasc 10 mg p.o. daily. 5. Prograf 2 mg p.o. b.i.d. 6. Sodium bicarb 650 mg p.o. b.i.d. 7. CellCept 500 mg p.o. b.i.d. 8. Coreg 25 p.o. b.i.d. ALLERGIES: None. EXAMINATION: Temperature 98.3, pulse 77, respirations 20, blood pressure 157/69, pulse ox 97% on 2L. GENERAL APPEARANCE: Average build, lying in bed, comfortable. EYES: Pupils equal. Conjunctivae normal. HEENT: External appearance of nose and ears normal. Oral cavity normal. NECK: JVD not raised. Mass not palpable. RESPIRATORY: Effort increased. LUNGS: Diminished breath sounds. CARDIOVASCULAR: First and second sounds normal. No edema. ABDOMEN: Soft, nontender. Liver and spleen not palpable. LYMPHATIC: No lymph node palpable in neck or axillae. PSYCHIATRY: Alert and oriented x3. Mood and affect normal. NEUROLOGICAL: Pupils equal. Cranial nerves grossly intact. Power and sensation grossly intact. INVESTIGATIONS: White count 4.8, hemoglobin 10.2. Potassium 3, BUN 21, creatinine 3.47. Troponin 0.055, 0.041, 0.047. EKG: Normal sinus rhythm with nonspecific T-wave changes. ASSESSMENT: 1. Possible unstable angina in a patient with multiple cardiac risk factors and the patient is a vasculopath. 2. Chronic obstructive pulmonary disease in a current smoker. 3. Chronic nicotine dependence. Patient is long-standing smoker. 4. Diabetes mellitus type 2 on oral hypoglycemic. 5. Status post -donor renal allograft in 2008 with significant interstitial fibrosis and tubal atrophy with biopsy in 2018. 6. Anemia secondary to chronic kidney disease. 7. Moderate to severe mitral regurgitation, nonrheumatic. 8. Severe secondary pulmonary hypertension secondary to chronic obstructive pulmonary disease. 9. Hypertensive heart disease. 10.Chronic congestive heart failure from systolic and diastolic dysfunction, ejection fraction 45%. PLAN: Patient's home medications resumed. Nephrology was consulted. Cardiology was consulted. The patient is put on IV heparin. Prognosis guarded. Smoking cessation counseling was done with the patient advised against smoking and some consequences given and will be given a nicotine patch. More than 3 minutes was spent on this aspect of the case. MMODL / IJN: [id number] /
[2017-07-23 05:57] LABS: Calcium 9.6 mg/dL (8.4-10.2); Potassium 4.5 mmol/L (3.5-5.1)
[2017-07-23 06:33] LABS: Glucose,Whole Blood 115 mg/dL (75-99)
[2017-07-23] MEDS ORDERED: CARVEDILOL 12.5 MG TAB PO SCH (07:30)
[2017-07-23] MEDS: SODIUM BICARBONATE TAB 650 MG TAB PO SCH (08:02)
[2017-07-23] MEDS: hydrALAZINE HCL 50 MG TAB PO SCH (08:02)
[2017-07-23] MEDS: MYCOPHENOLATE MOFETIL 250 MG CAP PO SCH (08:02)
[2017-07-23] MEDS: TACROLIMUS 1 MG CAP PO SCH (08:03)
[2017-07-23 08:18] VITALS: RESP 18; TEMP 97.4
--- NOTE | 2017-07-23 08:37 | P.NPCON ---
History of Present Illness - Reason for Consult end stage renal disease - History of Present Illness Reason for consultation: End-stage renal disease History of present illness: Patient is a 62-year-old male seen in renal consultation for end-stage renal disease. He is maintained on hemodialysis on a Wednesday schedule via left upper extremity AV fistula. Patient completed majority of his hemodialysis treatment yesterday but developed left-sided chest pain 2 or C end of the treatment. Patient states the chest pain has been intermittent and it feels like pressure on the left side of his chest. Patient is refusing IV heparin as it contains pork contents. Chest pain occurs mostly with exertion. He denies any diaphoresis or pain in his arms. Denies shortness of breath. Chest x-ray was clear. Denies vomiting or diarrhea. Hemodynamically stable. Vital signs are stable. General: The patient appeared well nourished and normally developed. HEENT: Head exam is unremarkable. Neck is without jugular venous distension. LUNGS: Lungs are clear to auscultation and percussion. Breath sounds decreased. HEART: Rate and Rhythm are regular. First and second heart sounds normal. No murmurs, rubs or gallops. ABDOMEN: Abdominal exam reveals normal bowel sounds. Non-tender and non- distended. No evidence of peritonitis. EXTREMITITES: No clubbing, cyanosis, or edema. Past Medical History Past Medical History: Atrial Fibrillation, Chest Pain / Angina, Heart Failure, COPD, Diabetes Mellitus, Hyperlipidemia, Hypertension, Liver Disease, Renal Disease Additional Past Medical History / Comment(s): Hepatitis C-successfully treated with Harvoni, IDDM type II-pt states he has run out of his insulin, ESRD with hemodialysis in the past then kidney transplant in 2007-no longer working so is back on hemodialysis and pt states he is in the process of getting back on a kidney transplant list, anemia, bilateral cataracts. History of Any Multi-Drug Resistant Organisms: None Reported Additional Past Surgical History / Comment(s): [address] [facility], 05/2016 renal biopsy, L arm fistula for hemodialysis. Past Anesthesia/Blood Transfusion Reactions: No Reported Reaction Smoking Status: Current every day smoker - Past Family History Father Family Medical History: Cancer Additional Family Medical History / Comment(s): Pt does not know what type of cancer father had. Father in his 60s. Mother History Unknown: Yes Family Medical History: No Reported History Additional Family Medical History / Comment(s): Mother at the age of 39yrs- pt does not know mother's health hx or cause of . Medications and Allergies Home Medications Medication Instructions Recorded Confirmed Type amLODIPine [Norvasc] 10 mg PO DAILY 06/23/16 07/22/17 History Tacrolimus [Prograf] 2 mg PO BID 02/25/17 07/22/17 History Carvedilol [Coreg] 25 mg PO BID 05/17/17 07/22/17 History metFORMIN HCL [Glucophage] 500 mg PO BID 05/17/17 07/22/17 History Darbepoetin Rambo [Aranesp] 40 mcg SQ Q7D syringe 05/20/17 07/22/17 Rx Mycophenolate Mofetil [Cellcept] 500 mg PO BID #0 05/20/17 07/22/17 Rx Sodium Bicarbonate Tab 650 mg PO BID #60 tab 05/20/17 07/22/17 Rx hydrALAZINE HCL [Apresoline] 50 mg PO TID #90 tab 05/20/17 07/22/17 Rx Allergies Allergy/AdvReac Type Severity Reaction Status Date / Time Pork/Porcine Containing AdvReac Unknown Verified 07/23/17 02:42 Products Physical Exam Vitals: Vital Signs Temp Pulse Pulse Pulse Resp BP BP 07/23/17 08:00 97.4 F L 80 18 07/23/17 04:00 98.5 F 79 16 07/23/17 00:00 98.5 F 83 16 07/22/17 20:00 99.2 F 81 16 07/22/17 19:57 07/22/17 15:40 82 16 143/98 07/22/17 15:20 98.3 F 77 20 157/69 07/22/17 14:00 98.3 F 98 18 159/87 07/22/17 13:57 74 18 154/84 07/22/17 12:46 77 19 170/101 07/22/17 11:15 87 20 167/97 07/22/17 10:15 87 20 187/114 07/22/17 09:44 98.3 F 109 H 22 176/102 BP Pulse Ox 07/23/17 08:00 151/100 100 06/01/18 04:00 153/88 100 07/23/17 00:00 108/75 98 07/22/17 20:00 155/90 100 07/22/17 19:57 99 07/22/17 15:40 100 07/22/17 15:20 97 07/22/17 14:00 98 07/22/17 13:57 100 07/22/17 12:46 100 07/22/17 11:15 99 07/22/17 10:15 99 07/22/17 09:44 100 Intake and Output 07/22/17 07/23/17 07/23/17 22:59 06:59 14:59 Intake Total 149.649 Balance 149.649 Intake: Intake, IV Titration 149.649 Amount Heparin Sodium,Porcine/ 149.649 D5w Pmx 25,000 unit In Dextrose/Water 1 500ml. bag @ 12 UNITS/KG/HR 15. 67 mls/hr IV .Q24H [facility] Rx #:[id number] Other: Voiding Method Toilet Toilet Toilet # Voids 2 1 1 Weight 65 kg Results - Lab Results Most recent lab results Calcium 9.6 mg/dL (8.4-10.2) 07/23/17 05:26 Magnesium 2.2 mg/dL (1.6-2.3) 07/23/17 06:10 07/22/17 09:45 07/23/17 05:26 Assessment and Plan Plan: Assessment: 1. End-stage renal disease maintained on hemodialysis on a Wednesday schedule via left upper extremity AV fistula. 2. Status post donor renal allograft which failed recently and was started on hemodialysis. He is maintained on immunosuppression which is being tapered as an outpatient. 3. Hypokalemia. This was checked shortly after his hemodialysis so was expected to be low. This morning his potassium was in the normal range. 4. Hypertension with chronic kidney disease. Blood pressures on the higher side. 5. Anemia of chronic kidney disease maintained on Aranesp. 6. Left-sided chest pain. Rule out cardiac etiology. Patient refusing heparin drip due to pork contents. Plan: Hemodialysis tomorrow. Check phosphorus level. Maintain Prograf and CellCept for now. They will be tapered as outpatient. Cardiology recommendations pending. Thank you for the consultation. I will continue to follow the patient is due during his hospital stay.
[2017-07-23] MEDS ORDERED: DARBEPOETIN ALFA 40 MCG/0.4 ML SYRINGE SQ SCH (09:00)
[2017-07-23] MEDS ORDERED: amLODIPine 10 MG TAB PO SCH (09:00)
[2017-07-23 11:08] LABS: Hemoglobin A1C 5.7 % (4.0-6.0)
[2017-07-23 11:47] LABS: Glucose,Whole Blood 224 mg/dL (75-99)
[2017-07-23 12:32] VITALS: BP 116/74; PULSE 74
--- NOTE | 2017-07-23 14:30 | CONS ---
CONSULTATION Marlena Guillermo is a 62-year-old gentleman with a known end-stage renal disease, who came through the emergency room with complaints of some sharp pains in the chest pain lasts at about 10 seconds, worse on deep breathing, more on the left lower aspect. This occurred apparently at 9 am while he was on dialysis. He has end-stage renal disease on dialysis, has hypertension, hyperlipidemia, and also has underlying type 2 diabetes mellitus. PAST MEDICAL HISTORY: 1. End-stage renal disease. 2. Type 2 diabetes mellitus. 3. History of degenerative joint disease. ALLERGIES: None. MEDICATIONS: Include amlodipine, Prograf, Coreg, metformin, I , CellCept, and bicarbonate tab tablets. LABORATORY DATA: Suggests the troponin is in the equivocal range of 0.04 in the equivocal range of 0.04. EKG revealed a sinus mechanism with nonspecific ST-T changes and voltage criteria for LVH. The rhythm maybe ectopic atrial also. PHYSICAL EXAMINATION: Blood pressure is 147/84, pulse rate 80 per minute regular. HEENT: Unremarkable. Fundus was not examined by me. NECK: Supple. There is no JVD. I do not hear a carotid bruit heart exam reveals S1, S2 heard normally with a short systolic murmur. Lungs are clear. Abdomen is soft, nontender. Lower extremities reveal normal pulses. No edema. Grossly reveal diminished pulses no edema central system is normal EKG revealed sinus mechanism, nonspecific ST-T changes. LVH by voltage criteria. IMPRESSION: 1. Elevated troponin, not suggestive of myocardial injury. The patient with end-stage renal disease. 2. Atypical chest pain. 3. End-stage renal disease on hemodialysis. 4. Hypertension. 5. Type 2 diabetes mellitus. RECOMMENDATION: I am recommending that we optimize BP control, increase activity and patient can be discharged and outpatient stress test is advised. While I while we are not dealing with any acute coronary ischemic syndrome, the patient may have CAD given his multiple comorbid conditions, but the stress test can be performed as an outpatient through his primary care physician Dr Velasquez. I discussed my thoughts in detail with the patient. Thank you very much for the consult. MMODL / IJN: [id number] /
[2017-07-23] MEDS: SODIUM CHLORIDE 0.9% 500 ML IV SCH (14:41)
--- NOTE | 2017-07-23 22:40 | DS ---
DISCHARGE SUMMARY DATE OF ADMISSION: 07/22/2017. DATE OF DISCHARGE: 07/23/2017 FINAL DIAGNOSES: 1. Final diagnosis possible unstable angina with possible coronary artery disease. 2. Chronic obstructive pulmonary disease in a current smoker. 3. Chronic nicotine dependence. Patient is a long-standing smoker. 4. Diabetes mellitus type 2 on oral hypoglycemic. 5. Status post donor renal allograft in 2007 with significant interstitial fibrosis and tubular atrophy biopsy in 2018. 6. Anemia secondary to chronic kidney disease. 7. Moderate to severe mitral regurgitation, nonrheumatic. 8. Severe secondary pulmonary hypertension secondary to chronic obstructive pulmonary disease. 9. Hypertensive heart disease. 10.Chronic congestive heart failure from systolic and diastolic dysfunction, ejection fraction 45%. HOSPITAL COURSE: This patient presented with chest pain and given that the patient is a vasculopath with multiple cardiac risk factors, the patient possibly has underlying coronary artery disease. Seen by Dr. Cesar Meyers, had no further symptoms. EKG had nonspecific findings. Dr. Cesar Meyers wants the patient to have an outpatient stress test. I did housing counselor the patient extensively about smoking. EXAM: LUNGS: Decreased breath sounds. PSYCH: AO x3. No edema. DISCHARGE MEDICATIONS: 1. Norvasc 10 mg p.o. daily. 2. Prograf 2 mg p.o. b.i.d. 3. Coreg 25 p.o. b.i.d. 4. Glucophage 500 mg p.o. b.i.d. 5. Aranesp 40 mcg subcu every 7 days. 6. CellCept 500 mg p.o. b.i.d. 7. Sodium bicarb 650 mg p.o. b.i.d. 8. Hydralazine 50 mg p.o. t.i.d. 9. Nicotine 21- mg patch. 10.Nitrostat 0.4 sublingual q.5 p.r.n. CONSULTATIONS: Dr. Cesar Meyers, consultation Dr. Sosa from nephrology. FOLLOWUP: With Dr. Monae on 07/30/2017, follow up with Dr. Velasquez on 08/20/2017. MMODL / IJN: [id number] /
== END 2017-07-23 15:28 | disposition home or self-care (01) | DRG 302 ==
LOC: EC 09:35 → 6SEL 11:25
PROVIDERS: ADMIT Hospitalist; ATTEND Hospitalist
DX: I25.110 Atherosclerotic heart disease of native coronary artery with unstable angina pectoris (principal); N18.6 End stage renal disease; I13.2 Hypertensive heart and chronic kidney disease with heart failure and with stage 5 chronic kidney disease, or end stage renal disease; I50.42 Chronic combined systolic (congestive) and diastolic (congestive) heart failure; T86.12 Kidney transplant failure; D89.813 Graft-versus-host disease, unspecified; F17.210 Nicotine dependence, cigarettes, uncomplicated; D63.1 Anemia in chronic kidney disease; E11.22 Type 2 diabetes mellitus with diabetic chronic kidney disease; E78.5 Hyperlipidemia, unspecified; E87.6 Hypokalemia; I27.29 Other secondary pulmonary hypertension; I34.0 Nonrheumatic mitral (valve) insufficiency; I48.91 Unspecified atrial fibrillation; J44.9 Chronic obstructive pulmonary disease, unspecified; Z79.899 Other long term (current) drug therapy; Z80.9 Family history of malignant neoplasm, unspecified; Z99.2 Dependence on renal dialysis; Z86.19 Personal history of other infectious and parasitic diseases; M19.90 Unspecified osteoarthritis, unspecified site; H26.9 Unspecified cataract; Z91.018 Allergy to other foods
CPT/HCPCS: 36415; 71046; 80048; 80053; 80061; 82550; 82553; 83036; 83690; 83735; 83880; 84100; 84484; 85025; 85610; 85730; 93005; 94760; 96365; 96366; 96376; 99283; 99285

== ENCOUNTER 2018-04-27 07:53 | Day surgery (SDC) | payer MEDICARE, OTHER ==
[2018-04-25 11:34] VITALS: BMI 22.3
[~2018-04-27 07:53] MED LIST: LACTATED RINGERS 1,000 ML IV SCH
[2018-04-27 08:13] VITALS: RESP 18; TEMP 97.5
[2018-04-27] MEDS ORDERED: LACTATED RINGERS 1,000 ML IV ONE (08:13)
[2018-04-27] MEDS ORDERED: LIDOCAINE 1% 20 ML VIAL (10MG/ML) FOR IV START INTRADERMA ONE (08:13)
[2018-04-27 08:24] LABS: Glucose,Whole Blood 71 mg/dL (75-99)
[2018-04-27] MEDS ORDERED: PROPOFOL 10 MG/ML 20 ML VIAL IV ONE (08:58)
--- NOTE | 2018-04-27 09:16 | P.PCN ---
Date of Procedure: 04/27/18 Procedure(s) Performed: BRIEF HISTORY: Patient is a 63-year-old pleasant -[place] male scheduled for an elective colonoscopy as a part of screening for colonic neoplasia. PROCEDURE PERFORMED: Colonoscopy with snare polypectomy. PREOPERATIVE DIAGNOSIS: Screening for colon cancer. IV sedation per Anesthesia. PROCEDURE: After informed consent was obtained, the patient, was brought into the endoscopy unit. IV sedation was administered by Anesthesia under continuous monitoring. Digital rectal examination was normal. Initially the Olympus CF- 160 flexible video colonoscope was then inserted in the rectum, gradually advanced into the cecum without any difficulty. Careful examination was performed as the scope was gradually being withdrawn. Ileocecal valve and the appendiceal orifice were visualized and appeared normal. Prep was excellent. Mucosa of the cecum, ascending colon appeared normal. In the transverse colon there was a 5 mm polyp that was removed by snare polypectomy. In the descending colon there was a 3 mm polyp that was removed by snare polypectomy. Rest of the transverse colon, descending colon, sigmoid colon, and rectum appeared normal. Retroflexion was performed in the rectum and no lesions were seen. The patient tolerated the procedure well. IMPRESSION: 5 mm transverse colon polyp status post polypectomy 3 mm descending colon polyp status post snare polypectomy RECOMMENDATIONS: Findings of this examination were discussed with the patient as well as his family. He was advised to follow with the biopsy results. If the biopsy shows adenoma, he can have a repeat colonoscopy in 5 years.
[2018-04-27 09:39] VITALS: BP 131/75; PULSE 65
== END 2018-04-27 09:46 | disposition home or self-care (01) ==
LOC: ORWHC2ENDO 07:53
PROVIDERS: ATTEND Internal Medicine Gastroenterology
DX: Z12.11 Encounter for screening for malignant neoplasm of colon (principal); I13.2 Hypertensive heart and chronic kidney disease with heart failure and with stage 5 chronic kidney disease, or end stage renal disease; E11.22 Type 2 diabetes mellitus with diabetic chronic kidney disease; N18.6 End stage renal disease; I50.9 Heart failure, unspecified; Z94.0 Kidney transplant status; D12.4 Benign neoplasm of descending colon; D12.3 Benign neoplasm of transverse colon; F17.210 Nicotine dependence, cigarettes, uncomplicated; Z79.84 Long term (current) use of oral hypoglycemic drugs; Z79.899 Other long term (current) drug therapy
CPT/HCPCS: 88305; 45385; J2704

== ENCOUNTER 2018-05-13 11:52 | Emergency (ER) | payer MEDICARE, OTHER ==
--- NOTE | 2018-05-13 13:16 | ED ---
URI HPI - General Chief Complaint: Upper Respiratory Infection Stated Complaint: Runny Nose, URI Time Seen by Provider: 05/13/18 12:28 Source: patient, RN notes reviewed Mode of arrival: ambulatory Limitations: no limitations - History of Present Illness Initial Comments: 63-year-old male presents emergency Department chief complaint of cough congestion. Patient states that he's been sick for approximately one week. Patient's had some a symptoms are improving there is still has a runny nose and slight cough. Patient denies any lung issues. Patient denies fever, chills, headache, dizziness, nausea, vomiting, diarrhea constipation. Patient states that has not taken any ivgh-hlf-lahikpt cough and cold medications. Denies any chest pain. - Related Data Home Medications Medication Instructions Recorded Confirmed amLODIPine [Norvasc] 10 mg PO DAILY 06/23/16 05/13/18 Tacrolimus [Prograf] 2 mg PO BID 02/25/17 05/13/18 Carvedilol [Coreg] 25 mg PO BID 05/17/17 05/13/18 metFORMIN HCL [Glucophage] 500 mg PO BID 05/17/17 05/13/18 Previous Rx's Medication Instructions Recorded Mycophenolate Mofetil [Cellcept] 500 mg PO BID #0 05/20/17 Sodium Bicarbonate Tab 650 mg PO BID #60 tab 05/20/17 hydrALAZINE HCL [Apresoline] 50 mg PO TID #90 tab 05/20/17 Nicotine 21Mg/24Hr Patch [Habitrol] 1 each TRANSDERM DAILY #30 patch 07/23/17 Nitroglycerin Sl Tabs [Nitrostat] 0.4 mg SUBLINGUAL Q5M PRN #25 tab 07/23/17 Amoxicillin 875 mg PO Q12HR #20 tablet 05/13/18 Fluticasone Nasal [place] [Flonase 2 spr EA NOSTRIL DAILY #1 bottle 05/13/18 Nasal [place]] Allergies Allergy/AdvReac Type Severity Reaction Status Date / Time Pork/Porcine Containing AdvReac Unknown Verified 05/13/18 12:33 Products Review of Systems ROS Statement: Those systems with pertinent positive or pertinent negative responses have been documented in the HPI. ROS Other: All systems not noted in ROS Statement are negative. Past Medical History Past Medical History: Chest Pain / Angina, COPD, Diabetes Mellitus, Hypertension, Liver Disease, Renal Disease Additional Past Medical History / Comment(s): Hepatitis C-tx in 2017, TIA-no residual effects, hemodialysis-,,. kidney failure- waiting for kidney transplant(had previous kidney transplant but now is back on dialysis) History of Any Multi-Drug Resistant Organisms: None Reported Past Surgical History: Hernia Repair Additional Past Surgical History / Comment(s): 2007 renal transplant at [facility], 05/2016 renal biopsy, fistula for hemodialysis. Past Anesthesia/Blood Transfusion Reactions: No Reported Reaction Past Psychological History: No Psychological Hx Reported Smoking Status: Current some day smoker - Past Family History Father Family Medical History: Cancer Additional Family Medical History / Comment(s): . Mother History Unknown: Yes Family Medical History: No Reported History Additional Family Medical History / Comment(s): Mother at the age of 39yrs- pt does not know mother's health hx or cause of . General Exam Limitations: no limitations General appearance: alert, in no apparent distress Head exam: Present: atraumatic, normocephalic, normal inspection Eye exam: Present: normal appearance, PERRL, EOMI. Absent: scleral icterus, conjunctival injection, periorbital swelling ENT exam: Present: normal exam, normal oropharynx, mucous membranes moist, TM's normal bilaterally, normal external ear exam Neck exam: Present: normal inspection, full ROM. Absent: tenderness, meningismus, lymphadenopathy Respiratory exam: Present: normal lung sounds bilaterally. Absent: respiratory distress, wheezes, rales, rhonchi, stridor Cardiovascular Exam: Present: regular rate, normal rhythm, normal heart sounds. Absent: systolic murmur, diastolic murmur, rubs, gallop, clicks GI/Abdominal exam: Present: soft, normal bowel sounds. Absent: distended, tenderness, guarding, rebound, rigid Course Vital Signs 05/13/18 12:24 Temperature 97.5 F L Pulse Rate 74 Respiratory 16 Rate Blood Pressure 172/101 O2 Sat by Pulse 94 L Oximetry Medical Decision Making - Medical Decision Making 63-year-old male presents for cough, congestion. Patient primary complaint is runny nose. Influenza testing is negative, chest x-ray shows no evidence of infiltrate. Patient we treated for acute sinusitis, started on amoxicillin and Flonase. Return parameters were discussed. - Lab Data Lab Results 05/13/18 Range/Units 12:31 Influenza Type A RNA Not Detected (Not Detectd) Influenza Type B (PCR) Not Detected (Not Detectd) Disposition Clinical Impression: Sinusitis, Cough Disposition: HOME SELF-CARE Condition: Stable Instructions (If sedation given, give patient instructions): Upper Respiratory Infection (ED) Additional Instructions: Please return to the Emergency Department if symptoms worsen or any other concerns. Prescriptions: Amoxicillin 875 mg PO Q12HR #20 tablet Fluticasone Nasal [place] [Flonase Nasal [place]] 2 spr EA NOSTRIL DAILY #1 bottle Is patient prescribed a controlled substance at d/c from ED?: No Referrals: Trav Velasquez MD [Primary Care Provider] - 1-2 days Time of Disposition: 13:36
--- NOTE | 2018-05-13 13:31 | XR ---
EXAMINATION TYPE: XR chest 2V DATE OF EXAM: 05/13/2018 COMPARISON: Chest x-ray July 22, 2017. HISTORY: Cough and pain. TECHNIQUE: Frontal and lateral views of the chest are obtained. FINDINGS: There is right internal jugular dual-lumen dialysis catheter with tips in SVC. There is lef t midlung vertical linear scarring redemonstrated. There is no suspicious focal air space opacity, p leural effusion, or pneumothorax seen. The cardiac silhouette size is within normal limits. The os seous structures are intact. IMPRESSION: No new suspicious acute infiltrate.
[2018-05-13 13:49] VITALS: BP 162/107; PULSE 68; RESP 14; TEMP 97
== END 2018-05-13 13:53 | disposition home or self-care (01) ==
LOC: EC 11:52
DX: J01.90 Acute sinusitis, unspecified (principal); I12.0 Hypertensive chronic kidney disease with stage 5 chronic kidney disease or end stage renal disease; E11.22 Type 2 diabetes mellitus with diabetic chronic kidney disease; N18.6 End stage renal disease; F17.200 Nicotine dependence, unspecified, uncomplicated; Z99.2 Dependence on renal dialysis; Z94.0 Kidney transplant status; Z79.84 Long term (current) use of oral hypoglycemic drugs; Z79.899 Other long term (current) drug therapy; Z91.018 Allergy to other foods
CPT/HCPCS: 71046; 87502; 99283